=== PATIENT | male | born 1965 | race American Indian/Alaskan Native ===

== ENCOUNTER 2021-07-17 10:48 | Emergency (ER) | payer MEDICAID ==
--- NOTE | 2021-07-17 11:38 | Emergency Department Report ---
ED Extremity Problem HPI - General Chief complaint: Extremity Problem,Nontraumatic Stated complaint: RT KNEE PAIN Time Seen by Provider: 07/17/21 11:04 Source: patient Mode of arrival: Wheelchair Limitations: No Limitations - History of Present Illness Initial comments: 56 male with a past medical history of CVA, borderline diabetes and gout presents to the ER today with complaints of right knee pain. Patient states that he feels like he has a flareup of his gout in his right knee. He has had similar symptoms in the past in the same knee. Reports associated swelling but no erythema. He reports increased pain with movement of the knee and with ambulation. He does take allopurinol daily and he admits that he has been compliant with it. He denies any particular injury to the knee. He denies any additional symptoms at this time. MD Complaint: joint swelling, joint paint -: week(s) (1) Severity scale (0 -10): 10 - Related Data Home Medications Medication Instructions Recorded Confirmed Last Taken Atorvastatin 20 mg PO DAILY 05/10/20 05/10/20 Unknown Levocetirizine Dihydrochloride 5 mg PO QHS 05/10/20 05/10/20 Unknown Losartan [Cozaar] 50 mg PO DAILY 05/10/20 05/10/20 Unknown Mepron 750 mg PO DAILY 05/10/20 05/10/20 Unknown ProAir HFA Inhaler 90 mcg INHALATION PRN PRN 05/10/20 05/10/20 Unknown Triumeq 600-50-300 mg Tablet 600 mg PO DAILY 05/10/20 05/10/20 Unknown Vitamin D3 50,000 unit PO 12XD 05/10/20 05/10/20 Unknown Previous Rx's Medication Instructions Recorded Last Taken Type Abacavir [Ziagen TAB] 600 mg PO QDAY tablet 05/13/20 Unknown Rx Acetaminophen [Acetaminophen TAB] 650 mg PO Q4H PRN tablet 05/13/20 Unknown Rx Antacid [Alum-Mag Hydrox-Simeth 30 ml PO Q4H PRN #320 oral.liqd 05/13/20 Unknown Rx [id number]/5Ml] AtorvaSTATin [Lipitor] 20 mg PO QHS #30 tablet 05/13/20 Unknown Rx Dolutegravir [Tivicay] 50 mg PO QDAY tablet 05/13/20 Unknown Rx Tamsulosin [Flomax] 0.4 mg PO QDAY #30 capsule 05/13/20 Unknown Rx Zofran 4 mg PO Q8H PRN #15 05/13/20 Unknown Rx amLODIPine 10 mg PO DAILY #30 tablet 05/13/20 Unknown Rx levoFLOXacin [Levaquin] 750 mg PO QDAY 2 Days #2 tablet 05/13/20 Unknown Rx metroNIDAZOLE [Flagyl] 500 mg PO Q8HR 2 Days #6 tablet 05/13/20 Unknown Rx Naproxen 500 mg PO BID #20 tablet 07/17/21 Unknown Rx Tramadol HCl/Acetaminophen 1 each PO Q4HR #12 tablet 07/17/21 Unknown Rx [Ultracet Tablet] Allergies Allergy/AdvReac Type Severity Reaction Status Date / Time Penicillins Allergy Hives Verified 07/17/21 10:52 ED Review of Systems ROS: Stated complaint: RT KNEE PAIN Other details as noted in HPI Comment: All other systems reviewed and negative Constitutional: denies: chills, fever Eyes: denies: eye pain, eye discharge, vision change ENT: denies: ear pain, throat pain Respiratory: denies: cough, shortness of breath, SOB with exertion, SOB at rest, wheezing Gastrointestinal: denies: abdominal pain, nausea, diarrhea, constipation, hematemesis, hematochezia Genitourinary: denies: urgency, dysuria ED Past Medical Hx - Past Medical History Hx CVA: Yes (2003, RUE deficit, LLE deficit) Hx Congestive Heart Failure: No Hx Renal Disease: No Hx Seizures: Yes Hx Asthma: No Hx HIV: Yes Additional medical history: "in tx for HIV, I'm undetectable" - Surgical History Additional Surgical History: R foot sx 02/2020 - Social History Smoking Status: Former Smoker - Medications Home Medications: Home Medications Medication Instructions Recorded Confirmed Last Taken Type Atorvastatin 20 mg PO DAILY 05/10/20 05/10/20 Unknown History Levocetirizine Dihydrochloride 5 mg PO QHS 05/10/20 05/10/20 Unknown History Losartan [Cozaar] 50 mg PO DAILY 05/10/20 05/10/20 Unknown History Mepron 750 mg PO DAILY 05/10/20 05/10/20 Unknown History ProAir HFA Inhaler 90 mcg INHALATION PRN PRN 05/10/20 05/10/20 Unknown History Triumeq 600-50-300 mg Tablet 600 mg PO DAILY 05/10/20 05/10/20 Unknown History Vitamin D3 50,000 unit PO 12XD 05/10/20 05/10/20 Unknown History Abacavir [Ziagen TAB] 600 mg PO QDAY tablet 05/13/20 Unknown Rx Acetaminophen [Acetaminophen TAB] 650 mg PO Q4H PRN tablet 05/13/20 Unknown Rx Antacid [Alum-Mag Hydrox-Simeth 30 ml PO Q4H PRN #320 oral.liqd 05/13/20 Unknown Rx [id number]/5Ml] AtorvaSTATin [Lipitor] 20 mg PO QHS #30 tablet 05/13/20 Unknown Rx Dolutegravir [Tivicay] 50 mg PO QDAY tablet 05/13/20 Unknown Rx Tamsulosin [Flomax] 0.4 mg PO QDAY #30 capsule 05/13/20 Unknown Rx Zofran 4 mg PO Q8H PRN #15 05/13/20 05/10/20 Unknown Rx amLODIPine 10 mg PO DAILY #30 tablet 05/13/20 Unknown Rx levoFLOXacin [Levaquin] 750 mg PO QDAY 2 Days #2 tablet 05/13/20 Unknown Rx metroNIDAZOLE [Flagyl] 500 mg PO Q8HR 2 Days #6 tablet 05/13/20 Unknown Rx Naproxen 500 mg PO BID #20 tablet 07/17/21 Unknown Rx Tramadol HCl/Acetaminophen 1 each PO Q4HR #12 tablet 07/17/21 Unknown Rx [Ultracet Tablet] ED Physical Exam - General Limitations: No Limitations General appearance: alert, in no apparent distress - Head Head exam: Present: atraumatic, normocephalic, normal inspection - Eye Eye exam: Present: normal appearance, PERRL, EOMI Pupils: Present: normal accommodation - Neck Neck exam: Present: normal inspection, full ROM. Absent: tenderness - Respiratory Respiratory exam: Present: normal lung sounds bilaterally. Absent: respiratory distress, wheezes, rales, rhonchi - Cardiovascular Cardiovascular Exam: Present: regular rate, normal rhythm, normal heart sounds - Expanded Lower Extremity Exam Right Knee exam: Present: tenderness (mild ttp anterior lat aspect of right knee. No swelling, ecchymosis, erythema or deformity noted. Pain with flexion extension of the knee, but otherwise range of motion is normal.) - Neurological Exam Neurological exam: Present: alert, oriented X3, CN II-XII intact, normal gait - Psychiatric Psychiatric exam: Present: normal affect, normal mood - Skin Skin exam: Present: intact ED Course Vital Signs 07/17/21 07/17/21 10:49 11:52 Temperature 98.8 F 98.1 F Pulse Rate 110 H 73 Respiratory 16 12 Rate Blood Pressure 120/83 122/73 [Left] O2 Sat by Pulse 100 99 Oximetry ED Medical Decision Making - Medical Decision Making 56 male with a past medical history of CVA, borderline diabetes and gout presents to the ER today with complaints of right knee pain. Patient states that he feels like he has a flareup of his gout in his right knee. He has had similar symptoms in the past in the same knee. Reports associated swelling but no erythema. He reports increased pain with movement of the knee and with ambulation. He does take allopurinol daily and he admits that he has been compliant with it. He denies any particular injury to the knee. He denies any additional symptoms at this time. Patient right knee exam shows no apparent swelling, erythema, no warmth, no apparent joint effusion, and he has full range of motion of his knee. Patient knee exam does not suggest septic joint nor acute arterial occlusion or DVT. Suspect pain could be related to arthritis/gouty arthritis. Given patient has a history of "borderline diabetes", I will not initiate any steroids today. Instead patient will be started on anti-inflammatories and given medication for pain. He has appointment with his PCP next Wednesday which I recommend that he keeps. Patient stable at time of discharge. Critical care attestation.: If time is entered above; I have spent that time in minutes in the direct care of this critically ill patient, excluding procedure time. ED Disposition Clinical Impression: Right knee pain, History of gout Disposition: HOME / SELF CARE / HOMELESS Is pt being admited?: No Does the pt Need Aspirin: No Condition: Stable Instructions: Acute Knee Pain, Adult Additional Instructions: Recommend that you take the Ultram, and the naproxen as prescribed. Recommend that you continue taking your allopurinol. Keep your appointment with your primary care doctor on Wednesday. Return to the ER if your symptoms changes or worsens in any way. Prescriptions: Naproxen 500 mg PO BID #20 tablet Tramadol HCl/Acetaminophen [Ultracet Tablet] 1 each PO Q4HR #12 tablet Referrals: PRIMARY CARE, [Referring] - 3-5 Days Time of Disposition: 12:03
[2021-07-17 11:55] VITALS: BP 122/73
== END 2021-07-17 14:10 | disposition home or self-care (01) ==
LOC: ED 10:48
DX: M25.561 Pain in right knee (principal); M10.9 Gout, unspecified; Z88.0 Allergy status to penicillin; Z87.891 Personal history of nicotine dependence; Z86.73 Personal history of transient ischemic attack (TIA), and cerebral infarction without residual deficits
CPT/HCPCS: 99283

== ENCOUNTER 2021-10-14 17:37 | Inpatient (IN) | payer MEDICAID ==
[2021-10-14] MEDS ORDERED: SODIUM CHLORIDE 0.9% 1000 ML 1,000 ML IV ONE ×3 (18:04→19:02)
[2021-10-14] MEDS ORDERED: DEXTROSE 50% IN WATER (25GM) 50 ML SYRINGE IV PRN (18:04)
--- NOTE | 2021-10-14 18:17 | Emergency Department Report ---
<MATI ARIAS - Last Filed: 10/14/21 22:06> ED Altered Mental Status HPI - General Chief Complaint: Hyperglycemia Stated Complaint: ALTERED MENTAL STATUS Time Seen by Provider: 10/14/21 18:04 - Related Data Home Medications Medication Instructions Recorded Confirmed Last Taken Triumeq 600-50-300 mg Tablet 600 mg PO DAILY 05/10/20 10/16/21 Unknown Albuterol Mdi (or & Nicu Only) 2 puff IH QID PRN 10/17/21 10/17/21 Unknown [ProAir HFA Inhaler] AtorvaSTATin [Lipitor] 20 mg PO QHS 10/17/21 10/17/21 Unknown Cholecalciferol (Vitamin D3) 50,000 unit PO CONT 10/17/21 10/17/21 Unknown [Vitamin D3 50,000UNIT CAP] HYDROcodone/APAP 10-325 [[place] 1 tab PO Q6HR PRN 10/17/21 10/17/21 Unknown 10/325] Losartan [Cozaar] 50 mg PO QDAY 10/17/21 10/17/21 Unknown Previous Rx's Medication Instructions Recorded Last Taken Type amLODIPine 10 mg PO DAILY #30 tablet 05/13/20 Unknown Rx Allergies Allergy/AdvReac Type Severity Reaction Status Date / Time Penicillins Allergy Hives Verified 10/17/21 08:28 ED Past Medical Hx - Medications Home Medications: Home Medications Medication Instructions Recorded Confirmed Last Taken Type Triumeq 600-50-300 mg Tablet 600 mg PO DAILY 05/10/20 10/16/21 Unknown History amLODIPine 10 mg PO DAILY #30 tablet 05/13/20 10/16/21 Unknown Rx Albuterol Mdi (or & Nicu Only) 2 puff IH QID PRN 10/17/21 10/17/21 Unknown History [ProAir HFA Inhaler] AtorvaSTATin [Lipitor] 20 mg PO QHS 10/17/21 10/17/21 Unknown History Cholecalciferol (Vitamin D3) 50,000 unit PO CONT 10/17/21 10/17/21 Unknown H istory [Vitamin D3 50,000UNIT CAP] HYDROcodone/APAP 10-325 [[place] 1 tab PO Q6HR PRN 10/17/21 10/17/21 Unknown History 10/325] Losartan [Cozaar] 50 mg PO QDAY 10/17/21 10/17/21 Unknown History ED Course - Reevaluation(s) Reevaluation #1: 10/14/21 22:06 I spoke with hospitalist Dr. Hoyt to arrange admission. I consulted [employer] environmental health nurse. - Lab Data Result diagrams: 10/14/21 18:28 10/14/21 18:09 ED Disposition Clinical Impression: DKA (diabetic ketoacidosis), Hyperkalemia, HIV (human immunodeficiency virus infection), Hemiparesis affecting right side as late effect of cerebrovascular accident, Acute renal insufficiency, Pneumonia Disposition: 09 ADMITTED INPATIENT Is pt being admited?: Yes Does the pt Need Aspirin: No Condition: Critical <MIROSLAVA FONTANA - Last Filed: 10/18/21 08:04> ED Altered Mental Status HPI - General Source: EMS Mode of arrival: Stretcher Limitations: No Limitations - History of Present Illness Initial Comments: 56-year-old male with HIV, 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 Glucose is high. Patient history unclear when he states that he was diagnosed with diabetes 2 months ago but not placed on medications. He was sent for diminished mental status and slurred speech but as per previous medical history patient has speech deficit status post CVA in the past. Patient complains of shortness of breath and right pinky toe pain after injuring the toe at home within the last several weeks. Pain is worse with movement and palpation. Patient denies abdominal pain, chest pain, nausea, or vomiting ED Review of Systems ROS: Stated complaint: ALTERED MENTAL STATUS Other details as noted in HPI Comment: All other systems reviewed and negative ED Past Medical Hx - Past Medical History Hx CVA: Yes (2003, RUE deficit, LLE deficit) Hx Congestive Heart Failure: No Hx Renal Disease: No Hx Seizures: Yes Hx Asthma: No Hx HIV: Yes Additional medical history: "in tx for HIV, I'm undetectable" - Surgical History Additional Surgical History: R foot sx 02/2020 - Social History Smoking Status: Former Smoker ED Physical Exam - General Limitations: No Limitations - Other Other exam information: General: No acute distress Head: Atraumatic Eyes: normal appearance ENT: Moist mucous membranes Neck: Normal appearance, no midline tenderness Chest: Clear to auscultation bilaterally CV: Regular rate and rhythm Abdomen: Soft, normal bowel sounds, nontender, nondistended, no rebound or guarding Back: Normal inspection Extremity: Right pinky toe pain with movement. No deformity. No erythema or Neuro: Alert O x 3, slurred speech, right-sided weakness with contracture, right leg weakness, Psych: Appropriate behavior Skin: No rash ED Course Vital Signs 10/14/21 10/14/21 10/14/21 17:42 17:53 18:00 Temperature 98.1 F Pulse Rate 81 89 86 Pulse Rate [ Bilateral] Respiratory 16 30 H Rate Respiratory Rate [Bilateral ] Blood Pressure 65/24 Blood Pressure 145/77 [Right] O2 Sat by Pulse 100 99 Oximetry 10/14/21 10/14/21 10/14/21 18:14 18:15 18:30 Temperature Pulse Rate 82 79 Pulse Rate [ Bilateral] Respiratory 17 17 18 Rate Respiratory Rate [Bilateral ] Blood Pressure 107/83 149/81 Blood Pressure [Right] O2 Sat by Pulse 99 99 99 Oximetry 10/14/21 10/14/21 10/14/21 18:46 19:00 19:16 Temperature Pulse Rate 82 81 94 H Pulse Rate [ Bilateral] Respiratory 17 27 H 22 Rate Respiratory Rate [Bilateral ] Blood Pressure 165/82 135/81 140/38 Blood Pressure [Right] O2 Sat by Pulse 99 100 98 Oximetry 10/14/21 10/14/21 10/14/21 19:30 19:35 19:46 Temperature 94.1 F L Pulse Rate 90 93 H 96 H Pulse Rate [ Bilateral] Respiratory 27 H 17 17 Rate Respiratory Rate [Bilateral ] Blood Pressure 142/76 134/76 Blood Pressure 142/76 [Right] O2 Sat by Pulse 99 99 99 Oximetry 10/14/21 10/14/21 10/14/21 20:00 20:11 20:16 Temperature Pulse Rate 97 H 94 H Pulse Rate [ 97 H Bilateral] Respiratory 27 H 10 L Rate Respiratory 15 Rate [Bilateral ] Blood Pressure 143/79 150/78 Blood Pressure [Right] O2 Sat by Pulse 98 100 Oximetry 10/14/21 10/14/21 10/14/21 20:30 20:46 21:00 Temperature Pulse Rate 90 103 H 115 H Pulse Rate [ Bilateral] Respiratory 25 H 15 19 Rate Respiratory Rate [Bilateral ] Blood Pressure 154/77 157/79 146/83 Blood Pressure [Right] O2 Sat by Pulse 100 100 100 Oximetry 10/14/21 10/14/21 10/14/21 21:15 21:30 22:12 Temperature Pulse Rate 106 H 107 H 103 H Pulse Rate [ Bilateral] Respiratory 10 L 11 L 12 Rate Respiratory Rate [Bilateral ] Blood Pressure 143/71 132/102 Blood Pressure [Right] O2 Sat by Pulse 99 88 99 Oximetry 10/14/21 10/14/21 10/14/21 22:16 22:30 22:46 Temperature Pulse Rate 107 H 100 H 99 H Pulse Rate [ Bilateral] Respiratory 19 25 H 26 H Rate Respiratory Rate [Bilateral ] Blood Pressure Blood Pressure [Right] O2 Sat by Pulse 98 98 97 Oximetry 10/14/21 10/14/21 10/14/21 23:00 23:16 23:24 Temperature 97.4 F L Pulse Rate 109 H 102 H 101 H Pulse Rate [ Bilateral] Respiratory 17 27 H 28 H Rate Respiratory Rate [Bilateral ] Blood Pressure Blood Pressure [Right] O2 Sat by Pulse 100 98 99 Oximetry 10/14/21 10/14/21 10/15/21 23:30 23:46 00:00 Temperature Pulse Rate Pulse Rate [ Bilateral] Respiratory Rate Respiratory Rate [Bilateral ] Blood Pressure Blood Pressure [Right] O2 Sat by Pulse 99 97 99 Oximetry 10/15/21 10/15/21 10/15/21 00:16 00:30 00:46 Temperature Pulse Rate Pulse Rate [ Bilateral] Respiratory Rate Respiratory Rate [Bilateral ] Blood Pressure Blood Pressure [Right] O2 Sat by Pulse 98 98 97 Oximetry 10/15/21 10/15/21 10/15/21 01:00 01:16 01:30 Temperature Pulse Rate 105 H Pulse Rate [ Bilateral] Respiratory Rate Respiratory Rate [Bilateral ] Blood Pressure 134/82 117/74 126/82 Blood Pressure [Right] O2 Sat by Pulse 100 98 98 Oximetry 10/15/21 10/15/21 10/15/21 01:46 02:00 02:16 Temperature Pulse Rate 96 H 95 H 94 H Pulse Rate [ Bilateral] Respiratory 21 19 20 Rate Respiratory Rate [Bilateral ] Blood Pressure 125/75 155/87 108/69 Blood Pressure [Right] O2 Sat by Pulse 97 97 98 Oximetry - Consultations Consultation #1: 10/14/21 20:02 critical care consult ordered - Lab Data Result diagrams: 10/17/21 05:07 10/18/21 04:26 Lab Results 10/14/21 10/14/21 10/14/21 Range/Units 17:59 18:09 18:09 WBC (4.5-11.0) K/mm3 RBC (3.65-5.03) M/mm3 Hgb (11.8-15.2) gm/dl Hct (35.5-45.6) % MCV (84-94) fl MCH (28-32) pg MCHC (32-34) % RDW (13.2-15.2) % Plt Count (140-440) K/mm3 Add Manual Diff Total Counted Seg Neutrophils % Seg Neuts % (Manual) (40.0-70.0) % Band Neutrophils % % Lymphocytes % (Manual) (13.4-35.0) % Reactive Lymphs % (Man) % Monocytes % (Manual) (0.0-7.3) % Eosinophils % (Manual) (0.0-4.3) % Basophils % (Manual) (0.0-1.8) % Metamyelocytes % % Myelocytes % % Promyelocytes % % Blast Cells % % Nucleated RBC % Seg Neutrophils # Man (1.8-7.7) K/mm3 Band Neutrophils # K/mm3 Lymphocytes # (Manual) (1.2-5.4) K/mm3 Abs React Lymphs (Man) K/mm3 Monocytes # (Manual) (0.0-0.8) K/mm3 Eosinophils # (Manual) (0.0-0.4) K/mm3 Basophils # (Manual) (0.0-0.1) K/mm3 Metamyelocytes # K/mm3 Myelocytes # K/mm3 Promyelocytes # K/mm3 Blast Cells # K/mm3 WBC Morphology Hypersegmented Neuts Hyposegmented Neuts Hypogranular Neuts Smudge Cells Toxic Granulation Toxic Vacuolation Dohle Bodies Pelger-Huet Anomaly Joie Rods Platelet Estimate Clumped Platelets Plt Clumps, EDTA Large Platelets Giant Platelets Platelet Satelliting Plt Morphology Comment RBC Morphology Dimorphic RBCs Polychromasia Hypochromasia Poikilocytosis Anisocytosis Microcytosis Macrocytosis Spherocytes Pappenheimer Bodies Sickle Cells Target Cells Tear Drop Cells Ovalocytes Helmet Cells [place] Bodies Howard Rings Kourtney Cells Bite Cells Crenated Cell Elliptocytes Acanthocytes (Spur) Rouleaux Hemoglobin C Crystals Schistocytes Malaria parasites Raphael Bodies Hem Pathologist Commnt VBG pH (7.320-7.420) Sodium 118 L* (137-145) mmol/L Potassium 8.8 H* (3.6-5.0) mmol/L Chloride 77.6 L (98-107) mmol/L Carbon Dioxide 11 L (22-30) mmol/L Anion Gap 38 mmol/L BUN 77 H (9-20) mg/dL Creatinine 5.0 H (0.8-1.3) mg/dL Estimated GFR 15 ml/min BUN/Creatinine Ratio 15 % Glucose 1555 H* (75-100) mg/dL POC Glucose > 600 H (70-105) mg/dL Calcium 10.0 (8.4-10.2) mg/dL Phosphorus 11.60 H (2.5-4.5) mg/dL Magnesium 3.60 H (1.7-2.3) mg/dL Total Bilirubin 0.20 (0.1-1.2) mg/dL Direct Bilirubin < 0.2 (0-0.2) mg/dL Indirect Bilirubin 0.0 mg/dL AST 7 (5-40) units/L ALT 13 (7-56) units/L Alkaline Phosphatase 143 H (35-129) units/L Total Protein 7.5 (6.3-8.2) g/dL Albumin 4.8 (3.9-5) g/dL Albumin/Globulin Ratio 1.8 % 10/14/21 10/14/21 10/14/21 Range/Units 18:28 18:28 19:21 WBC 11.3 H (4.5-11.0) K/mm3 RBC 4.04 (3.65-5.03) M/mm3 Hgb 12.2 (11.8-15.2) gm/dl Hct 43.2 (35.5-45.6) % MCV 107 H (84-94) fl MCH 30 (28-32) pg MCHC 28 L (32-34) % RDW 15.1 (13.2-15.2) % Plt Count 329 (140-440) K/mm3 Add Manual Diff Complete Total Counted 100 Seg Neutrophils % Social Work Assistant Seg Neuts % (Manual) 94.0 H (40.0-70.0) % Band Neutrophils % 0 % Lymphocytes % (Manual) 1.0 L (13.4-35.0) % Reactive Lymphs % (Man) 0 % Monocytes % (Manual) 5.0 (0.0-7.3) % Eosinophils % (Manual) 0 (0.0-4.3) % Basophils % (Manual) 0 (0.0-1.8) % Metamyelocytes % 0 % Myelocytes % 0 % Promyelocytes % 0 % Blast Cells % 0 % Nucleated RBC % Not Reportable Seg Neutrophils # Man 10.6 H (1.8-7.7) K/mm3 Band Neutrophils # 0.0 K/mm3 Lymphocytes # (Manual) 0.1 L (1.2-5.4) K/mm3 Abs React Lymphs (Man) 0.0 K/mm3 Monocytes # (Manual) 0.6 (0.0-0.8) K/mm3 Eosinophils # (Manual) 0.0 (0.0-0.4) K/mm3 Basophils # (Manual) 0.0 (0.0-0.1) K/mm3 Metamyelocytes # 0.0 K/mm3 Myelocytes # 0.0 K/mm3 Promyelocytes # 0.0 K/mm3 Blast Cells # 0.0 K/mm3 WBC Morphology Not Reportable Hypersegmented Neuts Not Reportable Hyposegmented Neuts Not Reportable Hypogranular Neuts Not Reportable Smudge Cells Not Reportable Toxic Granulation Not Reportable Toxic Vacuolation Few Dohle Bodies Not Reportable Pelger-Huet Anomaly Not Reportable Joie Rods Not Reportable Platelet Estimate Consistent w auto Clumped Platelets 2+ Plt Clumps, EDTA Not Reportable Large Platelets Not Reportable Giant Platelets Not Reportable Platelet Satelliting Not Reportable Plt Morphology Comment Not Reportable RBC Morphology Not Reportable Dimorphic RBCs Not Reportable Polychromasia Not Reportable Hypochromasia Not Reportable Poikilocytosis Not Reportable Anisocytosis Not Reportable Microcytosis Not Reportable Macrocytosis Not Reportable Spherocytes Not Reportable Pappenheimer Bodies Not Reportable Sickle Cells Not Reportable Target Cells Not Reportable Tear Drop Cells Not Reportable Ovalocytes Not Reportable Helmet Cells Not Reportable [place]de-[place] Bodies Not Reportable Howard Rings Not Reportable Kourtney Cells Not Reportable Bite Cells Not Reportable Crenated Cell Not Reportable Elliptocytes Not Reportable Acanthocytes (Spur) Not Reportable Rouleaux Not Reportable Hemoglobin C Crystals Not Reportable Schistocytes Not Reportable Malaria parasites Not Reportable Raphael Bodies Not Reportable Hem Pathologist Commnt No VBG pH 7.129 L* (7.320-7.420) Sodium (137-145) mmol/L Potassium (3.6-5.0) mmol/L Chloride (98-107) mmol/L Carbon Dioxide (22-30) mmol/L Anion Gap mmol/L BUN (9-20) mg/dL Creatinine (0.8-1.3) mg/dL Estimated GFR ml/min BUN/Creatinine Ratio % Glucose (75-100) mg/dL POC Glucose > 600 H (70-105) mg/dL Calcium (8.4-10.2) mg/dL Phosphorus (2.5-4.5) mg/dL Magnesium (1.7-2.3) mg/dL Total Bilirubin (0.1-1.2) mg/dL Direct Bilirubin (0-0.2) mg/dL Indirect Bilirubin mg/dL AST (5-40) units/L ALT (7-56) units/L Alkaline Phosphatase (35-129) units/L Total Protein (6.3-8.2) g/dL Albumin (3.9-5) g/dL Albumin/Globulin Ratio % 10/14/21 10/14/21 10/14/21 Range/Units 20:44 21:13 22:36 WBC (4.5-11.0) K/mm3 RBC (3.65-5.03) M/mm3 Hgb (11.8-15.2) gm/dl Hct (35.5-45.6) % MCV (84-94) fl MCH (28-32) pg MCHC (32-34) % RDW (13.2-15.2) % Plt Count (140-440) K/mm3 Add Manual Diff Total Counted Seg Neutrophils % Seg Neuts % (Manual) (40.0-70.0) % Band Neutrophils % % Lymphocytes % (Manual) (13.4-35.0) % Reactive Lymphs % (Man) % Monocytes % (Manual) (0.0-7.3) % Eosinophils % (Manual) (0.0-4.3) % Basophils % (Manual) (0.0-1.8) % Metamyelocytes % % Myelocytes % % Promyelocytes % % Blast Cells % % Nucleated RBC % Seg Neutrophils # Man (1.8-7.7) K/mm3 Band Neutrophils # K/mm3 Lymphocytes # (Manual) (1.2-5.4) K/mm3 Abs React Lymphs (Man) K/mm3 Monocytes # (Manual) (0.0-0.8) K/mm3 Eosinophils # (Manual) (0.0-0.4) K/mm3 Basophils # (Manual) (0.0-0.1) K/mm3 Metamyelocytes # K/mm3 Myelocytes # K/mm3 Promyelocytes # K/mm3 Blast Cells # K/mm3 WBC Morphology Hypersegmented Neuts Hyposegmented Neuts Hypogranular Neuts Smudge Cells Toxic Granulation Toxic Vacuolation Dohle Bodies Pelger-Huet Anomaly Joie Rods Platelet Estimate Clumped Platelets Plt Clumps, EDTA Large Platelets Giant Platelets Platelet Satelliting Plt Morphology Comment RBC Morphology Dimorphic RBCs Polychromasia Hypochromasia Poikilocytosis Anisocytosis Microcytosis Macrocytosis Spherocytes Pappenheimer Bodies Sickle Cells Target Cells Tear Drop Cells Ovalocytes Helmet Cells [place]verde-[place] Bodies Howard Rings Kourtney Cells Bite Cells Crenated Cell Elliptocytes Acanthocytes (Spur) Rouleaux Hemoglobin C Crystals Schistocytes Malaria parasites Raphael Bodies Hem Pathologist Commnt VBG pH (7.320-7.420) Sodium 141 D (137-145) mmol/L Potassium 4.5 D (3.6-5.0) mmol/L Chloride 100.9 (98-107) mmol/L Carbon Dioxide 17 L (22-30) mmol/L Anion Gap 28 mmol/L BUN 73 H (9-20) mg/dL Creatinine 4.6 H (0.8-1.3) mg/dL Estimated GFR 16 ml/min BUN/Creatinine Ratio 16 % Glucose 997 H* 890 H* (75-100) mg/dL POC Glucose > 600 H (70-105) mg/dL Calcium 9.3 (8.4-10.2) mg/dL Phosphorus (2.5-4.5) mg/dL Magnesium (1.7-2.3) mg/dL Total Bilirubin (0.1-1.2) mg/dL Direct Bilirubin (0-0.2) mg/dL Indirect Bilirubin mg/dL AST (5-40) units/L ALT (7-56) units/L Alkaline Phosphatase (35-129) units/L Total Protein (6.3-8.2) g/dL Albumin (3.9-5) g/dL Albumin/Globulin Ratio % - EKG Data -: EKG Interpreted by Mt EKG shows normal: sinus rhythm, intervals (QTC 443), QRS complexes (Mild QRS prolongation 105), ST-T waves (Peaked T waves) Rate: normal (79) - Radiology Data Radiology results: report reviewed Right foot x-ray no acute fine Chest x-ray: Left lung opacity atelectasis versus infiltrate CT HEAD WITHOUT CONTRAST INDICATION / CLINICAL INFORMATION: Altered Mental Status, Hx of CVA, hyperglycemia. TECHNIQUE: All CT scans at this location are performed using CT dose reduction for ALARA by means of automated exposure control. COMPARISON: None available. FINDINGS: HEMORRHAGE: No evidence of intracranial hemorrhage or extra-axial fluid collection. EXTRA-AXIAL SPACES: Ex vacuo dilatation of cortical sulci is observed along the lateral convexity of the left frontal and parietal lobe secondary to remote left MCA infarction. Sulci have an unremarkable appearance. VENTRICULAR SYSTEM: There is ex vacuo enlargement of the left lateral ventricle compared to the right secondary to remote left MCA infarction. CEREBRAL PARENCHYMA: A large area of encephalomalacia involves much of the left parietal and frontal lobe secondary to remote left MCA infarction. MIDLINE SHIFT OR HERNIATION: There is no mass effect. CEREBELLUM / BRAINSTEM: There is atrophy of the left cerebral peduncle. This is a manifestation of [place] degeneration. Brain stem has an otherwise unremarkable appearance. No cerebellar abnormalities are identified. MIDLINE STRUCTURES:No abnormalities of the pituitary gland or pineal region are identified. INTRACRANIAL VESSELS:No abnormalities are identified on this noncontrast head CT. ORBITS: visualized portions of the orbits have an unremarkable appearance. SOFT TISSUES of HEAD: There is a large lipoma in the scalp lateralizing to the right the midline centered near the coronal suture. Overall size of this lesion is about 2 cm in anterior posterior dimension by 4 cm in right left dimension by 0.7 cm in superior-inferior dimension. This scalp lesion is in close proximity to an osteoma of the frontal bone on the right. CALVARIUM: There is an osteoma arising from the outer table of frontal bone to the right of the midline near the junction of the coronal and sagittal sutures. PARANASAL SINUSES / MASTOID AIR CELLS: Visualized portions of the paranasal sinuses are free from inflammatory mucosal disease. Mastoid air cells are normally pneumatized. ADDITIONAL FINDINGS: None. IMPRESSION: 1. Remote left MCA infarction. 2. 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 3. No acute intracranial abnormalities are identified. - Medical Decision Making 56-year male presents to the hospital with hyperglycemia and DKA as per lab findings. Has associated severe hyperkalemia and renal insufficiency. Patient treated with multiple medication for hyperkalemia, normal saline, insulin bolus, and insulin drip. Patient has mild hypothermia that was treated with active warming. Chest x-ray revealed possible infiltrate and patient was empirically treated with Levaquin after blood cultures ordered. At time of disposition results do indicate need for CCU admission and critical care consult ordered. CT head pending however, mild encephalopathy likely secondary to DKA and patient has chronic neurologic deficits. Critical Care Time: Yes Critical care attestation.: If time is entered above; I have spent that time in minutes in the direct care of this critically ill patient, excluding procedure time. Critical Care Time: 35 Minutes of critical care time excluding procedures were used in the care of the patient. I obtained history from EMS at the bedside. I discussed treatment plan with the nursing team members. I reviewed electronic record. I spoke with family to obtain medical history. Patient required multiple interventions and reassessments. (Treatment for hyperglycemia, hyperkalemia, acidosis, hypothermia) pt will require ICU admission for dka ED Disposition Is pt being admited?: Yes Time of Disposition: 20:05
[2021-10-14 18:47] LABS: Mean Corpuscular HGB Conc 28 % (32-34); Mean Corpuscular Volume 107 fl (84-94); Platelet Count 329 K/mm3 (140-440); Red Blood Count 4.04 M/mm3 (3.65-5.03); Red Cell Distribution Width 15.1 % (13.2-15.2)
[2021-10-14] MEDS ORDERED: ALBUTEROL 2.5 MG/3 ML NEBU IH ONE (18:49)
[2021-10-14 18:50] LABS: Alanine Aminotransferase 13 units/L (7-56); Albumin 4.8 g/dL (3.9-5)
[2021-10-14] MEDS ORDERED: SODIUM BICARB 8.4% 50 MEQ/50 ML SYRINGE IV ONE (18:50)
[2021-10-14] MEDS ORDERED: INSULIN REGULAR, HUMAN 100 UNITS/1 ML IV ONE (18:50)
[2021-10-14 18:51] LABS: Bilirubin,Direct < 0.2 mg/dL (0-0.2)
[2021-10-14 18:51] LABS: Hematocrit 43.2 % (35.5-45.6); Hemoglobin 12.2 gm/dl (11.8-15.2)
[2021-10-14] MEDS ORDERED: CALC GLUCONATE 1GM/NS 100 ML 1 GM/100 ML BAG IV ONE (19:00)
--- NOTE | 2021-10-14 19:05 | XRay Report ---
XR foot 3+V RT INDICATION / CLINICAL INFORMATION: 5th toe pain after recent injury COMPARISON: None available. FINDINGS: BONES / JOINT(S): No acute fracture or subluxation. Lisfranc interval is maintained. No significant a rthritis. SOFT TISSUES: No significant abnormality. ADDITIONAL FINDINGS: None. IMPRESSION: No acute osseous findings of the right foot. Signer Name: Yonny Min MD Signed: 10/14/2021 7:01 PM Workstation Name: [id number]
--- NOTE | 2021-10-14 19:05 | XRay Report ---
XR chest 1V ap INDICATION / CLINICAL INFORMATION: sob. COMPARISON: None available. FINDINGS: SUPPORT DEVICES: None. HEART /PULMONARY VASCULATURE: No significant abnormality. LUNGS / PLEURA: There is mild elevation of the left hemidiaphragm. Mildly low lung volumes. There is mild patchy airspace opacity left lung base. Right lung is clear. No sizable pleural effusion. No pne umothorax. IMPRESSION: Mild airspace opacity and left lung base, may reflect atelectasis or pneumonia. Signer Name: Yonny Min MD Signed: 10/14/2021 7:00 PM Workstation Name: [id number]
[2021-10-14] MEDS: INSULIN REGULAR, HUMAN 100 UNITS in SODIUM CHLORIDE 0.9% 99 ML IV SCH (19:27)
[2021-10-14 22:18] LABS: Basophils % (Manual) 0 % (0.0-1.8); Eosinophils % (Manual) 0 % (0.0-4.3); Platelet Clumps 2+; Platelet Estimate Consistent w Auto; Total Cells Counted 100; Toxic Vacuolation Few
--- NOTE | 2021-10-14 22:34 | Cat Scan Report ---
CT HEAD WITHOUT CONTRAST INDICATION / CLINICAL INFORMATION: Altered Mental Status, Hx of CVA, hyperglycemia. TECHNIQUE: All CT scans at this location are performed using CT dose reduction for ALARA by means of automated e xposure control. COMPARISON: None available. FINDINGS: HEMORRHAGE: No evidence of intracranial hemorrhage or extra-axial fluid collection. EXTRA-AXIAL SPACES: Ex vacuo dilatation of cortical sulci is observed along the lateral convexity of the left frontal and parietal lobe secondary to remote left MCA infarction. Sulci have an unremarkabl e appearance. VENTRICULAR SYSTEM: There is ex vacuo enlargement of the left lateral ventricle compared to the right secondary to remote left MCA infarction. CEREBRAL PARENCHYMA: A large area of encephalomalacia involves much of the left parietal and frontal lobe secondary to remote left MCA infarction. MIDLINE SHIFT OR HERNIATION: There is no mass effect. CEREBELLUM / BRAINSTEM: There is atrophy of the left cerebral peduncle. This is a manifestation of [place]ian degeneration. Brain stem has an otherwise unremarkable appearance. No cerebellar abnormalitie s are identified. MIDLINE STRUCTURES:No abnormalities of the pituitary gland or pineal region are identified. INTRACRANIAL VESSELS:No abnormalities are identified on this noncontrast head CT. ORBITS: visualized portions of the orbits have an unremarkable appearance. SOFT TISSUES of HEAD: There is a large lipoma in the scalp lateralizing to the right the midline cent ered near the coronal suture. Overall size of this lesion is about 2 cm in anterior posterior dimensi on by 4 cm in right left dimension by 0.7 cm in superior-inferior dimension. This scalp lesion is in close proximity to an osteoma of the frontal bone on the right. CALVARIUM: There is an osteoma arising from the outer table of frontal bone to the right of the midli ne near the junction of the coronal and sagittal sutures. PARANASAL SINUSES / MASTOID AIR CELLS: Visualized portions of the paranasal sinuses are free from inf lammatory mucosal disease. Mastoid air cells are normally pneumatized. ADDITIONAL FINDINGS: None. IMPRESSION: 1. Remote left MCA infarction. 2. 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 3. No acute intracranial abnormalities are identified. Signer Name: Mert Yung MD Signed: 10/14/2021 10:29 PM Workstation Name: [id number]
[2021-10-14 23:10] LABS: Calcium 9.3 mg/dL (8.4-10.2)
[2021-10-15] MEDS ORDERED: SODIUM CHLORIDE 0.9% 1000 ML 1,000 ML IV SCH ×2 (00:15→04:00)
--- NOTE | 2021-10-15 00:16 | History and Physical Report ---
History of Present Illness Date of examination: 10/14/21 Date of admission: 10/14/2021 Chief complaint: Changes in mental status History of present illness: 56-year-old male with known history of CVA x3 with right hemiparesis, HIV, hyperlipidemia, hypertension, asthma and history of tobacco abuse presents to the emergency room today with hyperglycemia. Patient was brought to the emergency room for changes in mental status and difficulty with speech. Patient states he was diagnosed with diabetes mellitus about 2 months ago but was not started on any medication. He denies any fever or chills, no chest pain or shortness of breath, no nausea vomiting and no abdominal pain. Work-up in the emergency room today's exam reveals a sodium level of 118, potassium of 8.8 and glucose of 1555. Patient also had a BUN of 77 and creatinine of 5.0. 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 X-ray of the right foot showed no acute abnormality. Chest x-ray showed mild airspace opacity in the left lung base which may reflect atelectasis or pneumonia. Patient had albuterol, calcium gluconate, sodium bicarbonate, insulin and glucose in the emergency room for the hyperkalemia. Patient being admitted with DKA, acute renal failure, hyperkalemia and possible underlying pneumonia. Past History Past Medical History: HIV/AIDS, seizures, stroke (2003, RUE deficit, LLE deficit)) Past Surgical History: Other ( R foot sx 02/2020) Social history: smoking (Former smoker) Family history: no significant family history Medications and Allergies Allergies Allergy/AdvReac Type Severity Reaction Status Date / Time Penicillins Allergy Hives Verified 07/17/21 10:52 Home Medications Medication Instructions Recorded Confirmed Last Taken Type Atorvastatin 20 mg PO DAILY 05/10/20 05/10/20 Unknown History Levocetirizine Dihydrochloride 5 mg PO QHS 05/10/20 05/10/20 Unknown History Losartan [Cozaar] 50 mg PO DAILY 05/10/20 05/10/20 Unknown History Mepron 750 mg PO DAILY 05/10/20 05/10/20 Unknown History ProAir HFA Inhaler 90 mcg INHALATION PRN PRN 05/10/20 05/10/20 Unknown History Triumeq 600-50-300 mg Tablet 600 mg PO DAILY 05/10/20 05/10/20 Unknown History Vitamin D3 50,000 unit PO 12XD 05/10/20 05/10/20 Unknown History Abacavir [Ziagen TAB] 600 mg PO QDAY tablet 05/13/20 Unknown Rx Acetaminophen [Acetaminophen TAB] 650 mg PO Q4H PRN tablet 05/13/20 Unknown Rx Antacid [Alum-Mag Hydrox-Simeth 30 ml PO Q4H PRN #320 oral.liqd 05/13/20 Unknown Rx [id number]/5Ml] AtorvaSTATin [Lipitor] 20 mg PO QHS #30 tablet 05/13/20 Unknown Rx Dolutegravir [Tivicay] 50 mg PO QDAY tablet 05/13/20 Unknown Rx Tamsulosin [Flomax] 0.4 mg PO QDAY #30 capsule 05/13/20 Unknown Rx Zofran 4 mg PO Q8H PRN #15 05/13/20 05/10/20 Unknown Rx amLODIPine 10 mg PO DAILY #30 tablet 05/13/20 Unknown Rx levoFLOXacin [Levaquin] 750 mg PO QDAY 2 Days #2 tablet 05/13/20 Unknown Rx metroNIDAZOLE [Flagyl] 500 mg PO Q8HR 2 Days #6 tablet 05/13/20 Unknown Rx Naproxen 500 mg PO BID #20 tablet 07/17/21 Unknown Rx Tramadol HCl/Acetaminophen 1 each PO Q4HR #12 tablet 07/17/21 Unknown Rx [Ultracet Tablet] Active Meds: Active Medications Acetaminophen (Acetaminophen 325 Mg Tab) 650 mg PO Q6H PRN PRN Reason: Pain MILD(1-3)/Fever >100.5/DELANEY Dextrose (Dextrose 50% In Water (25gm) 50 Ml Syringe) 0 ml IV Q30MIN PRN; Protocol PRN Reason: Hypoglycemia Insulin Human Regular 100 (units/ Sodium Chloride) 100 mls @ 1 mls/hr IV TITR JOSE; Protocol Last Admin: 10/14/21 19:27 Dose: 8 units/hr, 8 mls/hr Sodium Chloride (Nacl 0.9% 1000 Ml) 1,000 mls @ 150 mls/hr IV DIRECT JOSE Potassium Chloride/Dextrose/Sod Cl (D5w/0.45% Nacl/Kcl 20 Meq) 20 meq in 1,000 mls @ 125 mls/hr IV DIRECT JOSE Morphine Sulfate (Morphine 2 Mg/1 Ml Inj) 2 mg IV Q4H PRN PRN Reason: Pain, Moderate (4-6) Morphine Sulfate (Morphine 4 Mg/1 Ml Inj) 4 mg IV Q4H PRN PRN Reason: Pain , Severe (7-10) Sodium Chloride (Sodium Chloride 0.9% 10 Ml Flush Syringe) 10 ml IV BID JOSE Sodium Chloride (Sodium Chloride 0.9% 10 Ml Flush Syringe) 10 ml IV PRN PRN PRN Reason: LINE FLUSH Review of Systems Constitutional: no fever, no chills Ears, nose, mouth and throat: no nasal congestion, no sore throat Cardiovascular: no chest pain, no palpitations Respiratory: no cough, no shortness of breath Gastrointestinal: nausea, vomiting, no abdominal pain, no diarrhea Genitourinary Male: no dysuria, no hematuria, no flank pain Musculoskeletal: no neck pain, no low back pain Integumentary: no rash, no pruritis Neurological: confusion, no headaches Psychiatric: no anxiety, no depression Endocrine: no polyphagia, no polydipsia, no polyuria, no nocturia Exam - Constitutional Vitals: Temp Pulse Resp BP Pulse Ox 97.4 F L 102 H 27 H 132/102 98 10/14/21 23:00 10/14/21 23:16 10/14/21 23:16 10/14/21 21:30 10/14/21 23:16 General appearance: Present: no acute distress, well-nourished - EENT Eyes: Present: PERRL, EOM intact. Absent: scleral icterus ENT: hearing intact, clear oral mucosa, dentition normal - Neck Neck: Present: supple, normal ROM - Respiratory Respiratory effort: normal Respiratory: bilateral: CTA - Cardiovascular Rhythm: regular Heart Sounds: Present: S1 & S2. Absent: gallop, systolic murmur, diastolic murmur, rub - Extremities Extremities: no ischemia, pulses intact, pulses symmetrical, No edema, normal temperature, normal color, Full ROM Peripheral Pulses: within normal limits - Abdominal General gastrointestinal: Present: soft, non-tender, non-distended, normal bowel sounds. Absent: mass - Integumentary Integumentary: Present: clear, warm, dry, normal turgor. Absent: rash - Musculoskeletal Musculoskeletal: strength equal bilaterally - Psychiatric Psychiatric: appropriate mood/affect, intact judgment & insight, memory intact, cooperative - Neurologic Neurologic: CNII-XII intact, no focal deficits, moves all extremities Results - Labs CBC & Chem 7: 10/14/21 18:28 10/15/21 04:23 Labs: Abnormal lab results 10/14/21 10/14/21 10/14/21 Range/Units 17:59 18:09 18:09 WBC (4.5-11.0) K/mm3 MCV (84-94) fl MCHC (32-34) % Seg Neuts % (Manual) (40.0-70.0) % Lymphocytes % (Manual) (13.4-35.0) % Seg Neutrophils # Man (1.8-7.7) K/mm3 Lymphocytes # (Manual) (1.2-5.4) K/mm3 VBG pH (7.320-7.420) Sodium 118 L* (137-145) mmol/L Potassium 8.8 H* (3.6-5.0) mmol/L Chloride 77.6 L (98-107) mmol/L Carbon Dioxide 11 L (22-30) mmol/L BUN 77 H (9-20) mg/dL Creatinine 5.0 H (0.8-1.3) mg/dL Glucose 1555 H* (75-100) mg/dL POC Glucose > 600 H (70-105) mg/dL Phosphorus 11.60 H (2.5-4.5) mg/dL Magnesium 3.60 H (1.7-2.3) mg/dL Alkaline Phosphatase 143 H (35-129) units/L 10/14/21 10/14/21 10/14/21 Range/Units 18:28 18:28 19:21 WBC 11.3 H (4.5-11.0) K/mm3 MCV 107 H (84-94) fl MCHC 28 L (32-34) % Seg Neuts % (Manual) 94.0 H (40.0-70.0) % Lymphocytes % (Manual) 1.0 L (13.4-35.0) % Seg Neutrophils # Man 10.6 H (1.8-7.7) K/mm3 Lymphocytes # (Manual) 0.1 L (1.2-5.4) K/mm3 VBG pH 7.129 L* (7.320-7.420) Sodium (137-145) mmol/L Potassium (3.6-5.0) mmol/L Chloride (98-107) mmol/L Carbon Dioxide (22-30) mmol/L BUN (9-20) mg/dL Creatinine (0.8-1.3) mg/dL Glucose (75-100) mg/dL POC Glucose > 600 H (70-105) mg/dL Phosphorus (2.5-4.5) mg/dL Magnesium (1.7-2.3) mg/dL Alkaline Phosphatase (35-129) units/L 10/14/21 10/14/21 10/14/21 Range/Units 20:44 21:13 22:36 WBC (4.5-11.0) K/mm3 MCV (84-94) fl MCHC (32-34) % Seg Neuts % (Manual) (40.0-70.0) % Lymphocytes % (Manual) (13.4-35.0) % Seg Neutrophils # Man (1.8-7.7) K/mm3 Lymphocytes # (Manual) (1.2-5.4) K/mm3 VBG pH (7.320-7.420) Sodium (137-145) mmol/L Potassium (3.6-5.0) mmol/L Chloride (98-107) mmol/L Carbon Dioxide 17 L (22-30) mmol/L BUN 73 H (9-20) mg/dL Creatinine 4.6 H (0.8-1.3) mg/dL Glucose 997 H* 890 H* (75-100) mg/dL POC Glucose > 600 H (70-105) mg/dL Phosphorus (2.5-4.5) mg/dL Magnesium (1.7-2.3) mg/dL Alkaline Phosphatase (35-129) units/L Assessment and Plan - Patient Problems (1) DKA (diabetic ketoacidosis) Current Visit: Yes Status: Acute Plan to address problem: Patient admitted to the intensive care unit and placed on insulin drip and IV fluid. We'll monitor Accu-Cheks closely. (2) HIV (human immunodeficiency virus infection) Current Visit: Yes Status: Chronic Plan to address problem: We'll continue routine home medications. (3) Acute renal failure Current Visit: No Status: Acute Qualifiers: Acute renal failure type: unspecified Qualified Code(s): N17.9 - Acute kidney failure, unspecified Plan to address problem: Possibly secondary to severe dehydration, DKA we'll continue patient on IV fluid and monitor BUN and creatinine. Consult placed to nephrology for evaluation. (4) DVT prophylaxis Current Visit: No Status: Acute Plan to address problem: Patient placed on subcutaneous heparin. (5) Full code status Current Visit: No Status: Acute Plan to address problem: Patient is full code.
[2021-10-15] MEDS ORDERED: DEXTROSE 10% *Hypoglycemia IV PRN (00:23)
[2021-10-15] MEDS ORDERED: D5W/0.45% NACL/KCL 20 MEQ 20 MEQ/1,000 ML BAG IV SCH (01:00)
[2021-10-15 01:33] LABS: Calcium 9.5 mg/dL (8.4-10.2)
[2021-10-15] MEDS ORDERED: SODIUM CHLORIDE 0.9% 1000 ML 1,000 ML IV ONE (03:30)
[2021-10-15] MEDS: INSULIN REGULAR, HUMAN 100 UNITS in SODIUM CHLORIDE 0.9% 99 ML IV SCH (04:45)
[2021-10-15 06:00] LABS: Calcium 9.6 mg/dL (8.4-10.2)
[2021-10-15] MEDS ORDERED: LACTATED RINGERS 1,000 ML ONE (10:11)
--- NOTE | 2021-10-15 10:23 | Electrocardiograph Report ---
[facility] Test Date: 2021-10-14 Test Time: 18:41:22 Pat Name: PINO GARSIA Department: Room: A253 1 Gender: M Cad Technician: SHIRA : 1965 Requested By: MIROSLAVA FONTANA Order Number: [id number] Reading MD: Dave Herman Measurements Intervals [place] Rate: 79 P: 77 ID: [id number] QRS: 46 QRSD: 105 T: 28 QT: 385 QTc: 443 Interpretive Statements Sinus rhythm Low voltage, extremity leads No previous ECG available for comparison Electronically Signed On 10-15-2021 10:22:58 EST by Dave Herman
[2021-10-15] MEDS ORDERED: LACTATED RINGERS 1,000 ML IV ONE (10:30)
--- NOTE | 2021-10-15 10:58 | Event Note ---
<JOSIAH LANE - Last Filed: 10/15/21 14:26> Date: 10/15/21 This is a 56-year-old male with past medical history of CVA x3 with right hemiparesis, HIV, hyperlipidemia, hypertension, asthma, DM, and history of tobacco abuse admitted for hyperkalemia, DKA, and TOMAS Hospital Course to Date: 10/15: Patient medhat an examined at the bedside. Full AAO, on RA. Right hemiparesis and mild aphasia noted, per patient that is baseline, deficit from previous CVA. Patient remains on the DKA protocol, continue protocol until anion gap is closedX2. Period of hypotension overnight, BP is still boderline this am, additional IVF bolus given. Continue serial lab, possible transfer to the floor later on today if transition to subQ insulin. Assessement and Plan #DKA (diabetic ketoacidosis) - Continue DKA protocol - IV fluid resuscitation therapy, additional bolus given - Monitor and replace electrolytes as needed - Monitor anion gap - Serial BMP, mag, & phosp #Acute Renal Failure(ARF) most likely ATN #Hyperkalemia #Metabolic acidosis - Possibly secondary to severe dehydration, DKA - No EKG changes noted - Continue DKA protocol - IV fluid resuscitation therapy - Nephrology on consult, appreciated recommendation - Strict intake and output - Avoid nephrotoxic medications; Renally dose medications - Monitor and replace electrolytes as needed - Serial Labs #HIV (human immunodeficiency virus infection) - Continue routine home medications - Nursing to follow up with patient for update medications list #GI/DVT prophylaxis - PPI: pepcid - Continue AC- heparin SubQ - SCDs to bilateral lower extremities while in bed NonCCT- 60min <SANTOS REA - Last Filed: 10/16/21 07:29> I saw and evaluated the patient. I agree with the findings and the plan of care as documented in the Nurse Practitioner's~note, with the following corrections and additions.
--- NOTE | 2021-10-15 10:58 | Consultation ---
History of Present Illness Consult date: 10/15/21 Requesting physician: MIROSLAVA FONTANA Reason for consult: other (DKA) History of present illness: PULMONARY/CCM CONSULT NOTE (Full dictation # [id number]) Please see dictated notes for full details Past History Past Medical History: HIV/AIDS, seizures, stroke (2003, RUE deficit, LLE deficit)) Past Surgical History: Other ( R foot sx 02/2020) Social history: smoking (Former smoker) Family history: no significant family history Medications and Allergies Allergies Allergy/AdvReac Type Severity Reaction Status Date / Time Penicillins Allergy Hives Verified 07/17/21 10:52 Home Medications Medication Instructions Recorded Confirmed Last Taken Type Atorvastatin 20 mg PO DAILY 05/10/20 10/16/21 10/14/21 History ProAir HFA Inhaler 90 mcg INHALATION PRN PRN 05/10/20 10/16/21 Unknown History Triumeq 600-50-300 mg Tablet 600 mg PO DAILY 05/10/20 10/16/21 10/14/21 History Vitamin D3 50,000 unit PO 12XD 05/10/20 10/16/21 10/14/21 History amLODIPine 10 mg PO DAILY #30 tablet 05/13/20 10/16/21 10/14/21 Rx Active Meds: Active Medications Acetaminophen (Acetaminophen 325 Mg Tab) 650 mg PO Q6H PRN PRN Reason: Pain MILD(1-3)/Fever >100.5/DELANEY Dextrose (Dextrose 10% *Hypoglycemia) 0 ml IV PRN PRN; Protocol PRN Reason: Hypoglycemia Heparin Sodium (Porcine) (Heparin 5,000 Unit/1 Ml Vial) 5,000 unit SUB-Q Q8HR JOSE Insulin Human Regular 100 (units/ Sodium Chloride) 100 mls @ 1 mls/hr IV TITR JOSE; Protocol Last Titration: 10/15/21 10:15 Dose: 1 units/hr, 1 mls/hr Sodium Chloride (Nacl 0.9% 1000 Ml) 1,000 mls @ 150 mls/hr IV DIRECT JOSE Last Admin: 10/15/21 04:09 Dose: 150 mls/hr Potassium Chloride/Dextrose/Sod Cl (D5w/0.45% Nacl/Kcl 20 Meq) 20 meq in 1,000 mls @ 125 mls/hr IV DIRECT JOSE Last Admin: 10/15/21 10:16 Dose: 125 mls/hr Levofloxacin/Dextrose (Levaquin 500mg/100ml) 500 mg in 100 mls @ 66.667 mls/hr IV Q48H JOSE; Protocol Lactated Ringer's (Lactated Ringers) 1,000 mls @ 999 mls/hr IV BOLUS ONE Stop: 10/15/21 11:30 Last Admin: 10/15/21 10:33 Dose: 999 mls/hr Morphine Sulfate (Morphine 2 Mg/1 Ml Inj) 2 mg IV Q4H PRN PRN Reason: Pain, Moderate (4-6) Morphine Sulfate (Morphine 4 Mg/1 Ml Inj) 4 mg IV Q4H PRN PRN Reason: Pain , Severe (7-10) Sodium Chloride (Sodium Chloride 0.9% 10 Ml Flush Syringe) 10 ml IV BID JOSE Last Admin: 10/15/21 10:07 Dose: Not Given Sodium Chloride (Sodium Chloride 0.9% 10 Ml Flush Syringe) 10 ml IV PRN PRN PRN Reason: LINE FLUSH Physical Examination Vital signs: Vital Signs Temp Pulse Resp BP Pulse Ox 98.1 F 81 16 145/77 100 10/14/21 17:42 10/14/21 17:42 10/14/21 17:42 10/14/21 17:42 10/14/21 17:42 Results - Laboratory Findings CBC and BMP: 10/16/21 06:41 10/16/21 06:41 Abnormal lab findings: Abnormal Labs 10/14/21 10/14/21 10/14/21 17:59 18:09 18:09 WBC MCV MCHC Seg Neuts % (Manual) Lymphocytes % (Manual) Seg Neutrophils # Man Lymphocytes # (Manual) VBG pH Sodium 118 L* Potassium 8.8 H* Chloride 77.6 L Carbon Dioxide 11 L BUN 77 H Creatinine 5.0 H Glucose 1555 H* POC Glucose > 600 H Phosphorus 11.60 H Magnesium 3.60 H Alkaline Phosphatase 143 H 10/14/21 10/14/21 10/14/21 18:28 18:28 19:21 WBC 11.3 H MCV 107 H MCHC 28 L Seg Neuts % (Manual) 94.0 H Lymphocytes % (Manual) 1.0 L Seg Neutrophils # Man 10.6 H Lymphocytes # (Manual) 0.1 L VBG pH 7.129 L* Sodium Potassium Chloride Carbon Dioxide BUN Creatinine Glucose POC Glucose > 600 H Phosphorus Magnesium Alkaline Phosphatase 10/14/21 10/14/21 10/14/21 20:44 21:13 22:36 WBC MCV MCHC Seg Neuts % (Manual) Lymphocytes % (Manual) Seg Neutrophils # Man Lymphocytes # (Manual) VBG pH Sodium Potassium Chloride Carbon Dioxide 17 L BUN 73 H Creatinine 4.6 H Glucose 997 H* 890 H* POC Glucose > 600 H Phosphorus Magnesium Alkaline Phosphatase 10/15/21 10/15/21 10/15/21 00:22 00:50 00:50 WBC MCV MCHC Seg Neuts % (Manual) Lymphocytes % (Manual) Seg Neutrophils # Man Lymphocytes # (Manual) VBG pH Sodium Potassium Chloride Carbon Dioxide 19 L BUN 72 H Creatinine 4.1 H Glucose 727 H* POC Glucose > 600 H Phosphorus 6.60 H D Magnesium 3.40 H Alkaline Phosphatase 10/15/21 10/15/21 10/15/21 02:24 03:01 03:54 WBC MCV MCHC Seg Neuts % (Manual) Lymphocytes % (Manual) Seg Neutrophils # Man Lymphocytes # (Manual) VBG pH Sodium Potassium Chloride Carbon Dioxide BUN Creatinine Glucose POC Glucose 537 H 529 H 478 H Phosphorus Magnesium Alkaline Phosphatase 10/15/21 10/15/21 10/15/21 04:23 04:56 05:57 WBC MCV MCHC Seg Neuts % (Manual) Lymphocytes % (Manual) Seg Neutrophils # Man Lymphocytes # (Manual) VBG pH Sodium Potassium Chloride 111.0 H Carbon Dioxide 19 L BUN 64 H Creatinine 3.4 H Glucose 402 H POC Glucose 423 H 296 H Phosphorus Magnesium Alkaline Phosphatase 10/15/21 10/15/21 10/15/21 06:54 08:03 09:02 WBC MCV MCHC Seg Neuts % (Manual) Lymphocytes % (Manual) Seg Neutrophils # Man Lymphocytes # (Manual) VBG pH Sodium Potassium Chloride Carbon Dioxide BUN Creatinine Glucose POC Glucose 266 H 140 H 119 H Phosphorus Magnesium Alkaline Phosphatase
--- NOTE | 2021-10-15 12:09 | Consultation ---
History of Present Illness - Reason for Consult Consult date: 10/15/21 acute renal failure - History of Present Illness The patient is a 56 YO male with known history of Hypertension, HLD, boderline DM, CVA x3 with right hemiparesis & aphasia, HIV, Asthma, Tobacco abuse and CKD who presented to [facility] ED 10/14/21 with AMS and hyperglycemia. Patient was diagnosed with diabetes mellitus about 2 months ago but was not started on any medication. He denies any fever, chills, chest pain, shortness of breath, nausea, vomiting and abdominal pain. Work-up in the ED revealed a Sodium of 118, Potassium of 8.8, Glucose of 1555, BUN of 77 and creatinine of 5.0. 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 Chest x-ray showed mild airspace opacity in the left lung base which may reflect atelectasis or pneumonia. Patient received treatment for hyperglycemia. Admitted for DKA management. Nephrology was consulted for evaluation and treatment of TOMAS. Past History Past Medical History: diabetes, HIV/AIDS, hypertension, hyperlipidemia, renal failure, seizures, stroke (2003, RUE deficit, LLE deficit)) Past Surgical History: Other ( R foot sx 02/2020) Social history: smoking (Former smoker) Family history: no significant family history Medications and Allergies Allergies Allergy/AdvReac Type Severity Reaction Status Date / Time Penicillins Allergy Hives Verified 07/17/21 10:52 Home Medications Medication Instructions Recorded Confirmed Last Taken Type Atorvastatin 20 mg PO DAILY 05/10/20 05/10/20 Unknown History Levocetirizine Dihydrochloride 5 mg PO QHS 05/10/20 05/10/20 Unknown History Losartan [Cozaar] 50 mg PO DAILY 05/10/20 05/10/20 Unknown History Mepron 750 mg PO DAILY 05/10/20 05/10/20 Unknown History ProAir HFA Inhaler 90 mcg INHALATION PRN PRN 05/10/20 05/10/20 Unknown History Triumeq 600-50-300 mg Tablet 600 mg PO DAILY 05/10/20 05/10/20 Unknown History Vitamin D3 50,000 unit PO 12XD 05/10/20 05/10/20 Unknown History Abacavir [Ziagen TAB] 600 mg PO QDAY tablet 05/13/20 Unknown Rx Acetaminophen [Acetaminophen TAB] 650 mg PO Q4H PRN tablet 05/13/20 Unknown Rx Antacid [Alum-Mag Hydrox-Simeth 30 ml PO Q4H PRN #320 oral.liqd 05/13/20 Unknown Rx [id number]/5Ml] AtorvaSTATin [Lipitor] 20 mg PO QHS #30 tablet 05/13/20 Unknown Rx Dolutegravir [Tivicay] 50 mg PO QDAY tablet 05/13/20 Unknown Rx Tamsulosin [Flomax] 0.4 mg PO QDAY #30 capsule 05/13/20 Unknown Rx Zofran 4 mg PO Q8H PRN #15 05/13/20 05/10/20 Unknown Rx amLODIPine 10 mg PO DAILY #30 tablet 05/13/20 Unknown Rx levoFLOXacin [Levaquin] 750 mg PO QDAY 2 Days #2 tablet 05/13/20 Unknown Rx metroNIDAZOLE [Flagyl] 500 mg PO Q8HR 2 Days #6 tablet 05/13/20 Unknown Rx Naproxen 500 mg PO BID #20 tablet 07/17/21 Unknown Rx Tramadol HCl/Acetaminophen 1 each PO Q4HR #12 tablet 07/17/21 Unknown Rx [Ultracet Tablet] Active Meds: Active Medications Acetaminophen (Acetaminophen 325 Mg Tab) 650 mg PO Q6H PRN PRN Reason: Pain MILD(1-3)/Fever >100.5/DELANEY Dextrose (Dextrose 10% *Hypoglycemia) 0 ml IV PRN PRN; Protocol PRN Reason: Hypoglycemia Heparin Sodium (Porcine) (Heparin 5,000 Unit/1 Ml Vial) 5,000 unit SUB-Q Q8HR [facility] Insulin Human Regular 100 (units/ Sodium Chloride) 100 mls @ 1 mls/hr IV TITR JOSE; Protocol Last Titration: 10/15/21 11:33 Dose: 2 units/hr, 2 mls/hr Sodium Chloride (Nacl 0.9% 1000 Ml) 1,000 mls @ 150 mls/hr IV DIRECT JOSE Last Admin: 10/15/21 04:09 Dose: 150 mls/hr Potassium Chloride/Dextrose/Sod Cl (D5w/0.45% Nacl/Kcl 20 Meq) 20 meq in 1,000 mls @ 125 mls/hr IV DIRECT JOSE Last Admin: 10/15/21 10:16 Dose: 125 mls/hr Morphine Sulfate (Morphine 2 Mg/1 Ml Inj) 2 mg IV Q4H PRN PRN Reason: Pain, Moderate (4-6) Morphine Sulfate (Morphine 4 Mg/1 Ml Inj) 4 mg IV Q4H PRN PRN Reason: Pain , Severe (7-10) Sodium Chloride (Sodium Chloride 0.9% 10 Ml Flush Syringe) 10 ml IV BID JOSE Last Admin: 10/15/21 10:07 Dose: Not Given Sodium Chloride (Sodium Chloride 0.9% 10 Ml Flush Syringe) 10 ml IV PRN PRN PRN Reason: LINE FLUSH Review of Systems All systems: negative Exam - Vital Signs Vital signs: Vital Signs Temp Pulse Resp BP Pulse Ox 98.1 F 81 16 145/77 100 10/14/21 17:42 10/14/21 17:42 10/14/21 17:42 10/14/21 17:42 10/14/21 17:42 Results - Lab Results 10/14/21 18:28 10/15/21 17:52 Most recent lab results Calcium 9.6 mg/dL (8.4-10.2) 10/15/21 04:23 Phosphorus 6.60 mg/dL (2.5-4.5) H D 10/15/21 00:50 Magnesium 3.40 mg/dL (1.7-2.3) H 10/15/21 00:50 Assessment and Plan 1. Acute kidney injury: Vasomotor TOMAS superimposed on CKD in the setting of DKA / volume depletion. Urine studies and Renal US ordered. IV fluids. Monitor renal function. Creatinine level is improving. Avoid nephrotoxic agents. Meds dosage based on GFR. 2. FEN: Hyperkalemia, improved, monitor. Pseudohyponatremia, monitor. Monitor lytes and volume status. 3. DKA: Improving. Per protocol. Monitor. 4. Covid-19 PUI: Test pending. Monitor. 5. History of CVA with residual R hemiparesis: Supportive care. 6. HIV: Continue home meds. 7. H/o Hypertension: Monitor BP. Subjective: Patient was seen and examined at the bedside. RN at the bedside. Examination: General appearance: well-developed, appears stated age, no distress HEENT: atraumatic, GASPER Neck: trachea midline Respiratory: ctab Heart: S1S2, regular, no murmur Abdomen: obese, soft, bowel sounds heard, NT Integumentary: no obvious rash noted Neurologic: alert, conversing, R hemiparesis, aphasia Ext: no edema noted
[2021-10-15] MEDS: HEPARIN 5,000 UNIT/1 ML VIAL SUB-Q SCH ×2 (14:02→21:15)
[2021-10-15] MEDS: DOCUSATE SODIUM 100 MG CAP PO SCH ×2 (14:03→21:15)
[2021-10-15 15:54] LABS: Calcium 9.1 mg/dL (8.4-10.2)
[2021-10-15] MEDS ORDERED: SODIUM BICARB 8.4% 50 MEQ/50 ML SYRINGE IV NR (16:32)
[2021-10-15] MEDS: FLUTICASONE PROPIONATE NASAL SPRAY 16 GM NS SCH (17:57)
[2021-10-15] MEDS: DEXTROSE 5% IN WATER 1,000 ML IV SCH (17:57)
[2021-10-15 18:27] LABS: C-Reactive Protein 5.1 mg/dL (0.00-1.30); Calcium 9.2 mg/dL (8.4-10.2)
[2021-10-15] MEDS: MORPHINE 2 MG/1 ML INJ IV PRN (19:28)
[2021-10-15 19:41] LABS: Bacteria,Urine 1+ /HPF (Negative); Bilirubin,Urine NEG (Negative); Blood,Urine LG (Negative); Color,Urine Yellow (Yellow); Mucus,Urine FEW /HPF; Urobilinogen,Urine < 2.0 mg/dL (<2.0)
[2021-10-15] MEDS: FAMOTIDINE 10 MG TAB PO SCH (21:15)
[2021-10-15] MEDS: SENNOSIDES ORAL LIQD 8.8 MG/5 ML ORAL LIQD PO SCH (21:15)
[2021-10-15] MEDS: MORPHINE 4 MG/1 ML INJ IV PRN (23:26)
[2021-10-16 02:29] LABS: Calcium 8.4 mg/dL (8.4-10.2)
[2021-10-16] MEDS: DEXTROSE 5% IN WATER 1,000 ML IV SCH (04:00)
[2021-10-16] MEDS: HEPARIN 5,000 UNIT/1 ML VIAL SUB-Q SCH ×3 (05:10→21:33)
[2021-10-16] MEDS: MORPHINE 4 MG/1 ML INJ IV PRN ×2 (05:10→09:23)
[2021-10-16 07:06] LABS: Hematocrit 28.2 % (35.5-45.6); Hemoglobin 9.3 gm/dl (11.8-15.2); Mean Corpuscular HGB Conc 33 % (32-34); Mean Corpuscular Volume 95 fl (84-94); Platelet Count 169 K/mm3 (140-440); Red Blood Count 2.98 M/mm3 (3.65-5.03); Red Cell Distribution Width 14.6 % (13.2-15.2)
[2021-10-16 07:18] LABS: Calcium 8.5 mg/dL (8.4-10.2)
[2021-10-16] MEDS ORDERED: DEXTROSE 50% IN WATER (25GM) 50 ML SYRINGE IV PRN (07:36)
[2021-10-16] MEDS ORDERED: INSULIN GLARGINE 100 UNITS/ML SUB-Q ONE (08:30)
[2021-10-16] MEDS ORDERED: DEXTROSE 10% *Hypoglycemia IV PRN (08:30)
[2021-10-16] MEDS: FLUTICASONE PROPIONATE NASAL SPRAY 16 GM NS SCH (09:20)
[2021-10-16] MEDS: DOLUTEGRAVIR 50 MG TAB PO SCH (09:23)
[2021-10-16] MEDS: ABACAVIR 300 MG TAB PO SCH (09:23)
[2021-10-16] MEDS: DOCUSATE SODIUM 100 MG CAP PO SCH ×2 (09:24→21:33)
[2021-10-16] MEDS: FAMOTIDINE 10 MG TAB PO SCH ×2 (09:24→21:32)
[2021-10-16] MEDS ORDERED: ABACAVIR 300 MG TAB PO SCH (10:00)
[2021-10-16] MEDS ORDERED: DOLUTEGRAVIR 50 MG, ABACAVIR 600 MG, lamiVUDine 300 MG PO SCH (10:00)
[2021-10-16] MEDS ORDERED: DOLUTEGRAVIR 50 MG TAB PO SCH (10:00)
--- NOTE | 2021-10-16 10:03 | Progress Note ---
Assessment and Plan 1. Acute kidney injury: Vasomotor TOMAS superimposed on CKD in the setting of DKA / volume depletion. Renal US showed R kidney stone and ?mild R hydro. Urine studies ordered. IV fluids. Monitor renal function. Creatinine level is improving. Avoid nephrotoxic agents. Meds dosage based on GFR. 2. FEN: Hyperkalemia, improved, monitor. Pseudohyponatremia, monitor. Replete lytes. Monitor lytes and volume status. 3. DKA: Improving. Per protocol. Monitor. 4. Covid-19 PUI: Test pending. Monitor. 5. History of CVA with residual R hemiparesis: Supportive care. 6. HIV: Continue home meds. 7. H/o Hypertension: Monitor BP. Subjective: Patient was seen and examined at the bedside. RN at the bedside. Examination: General appearance: well-developed, appears stated age, no distress HEENT: atraumatic, GASPER Neck: trachea midline Respiratory: ctab Heart: S1S2, regular, no murmur Abdomen: obese, soft, bowel sounds heard, NT Integumentary: no obvious rash noted Neurologic: alert, conversing, R hemiparesis, aphasia Ext: no edema noted Subjective Date of service: 10/16/21 Objective - Vital Signs Vital signs: Vital Signs - 12hr 10/15/21 10/15/21 10/15/21 22:10 22:20 22:30 Temperature Pulse Rate 71 76 73 Pulse Rate [ From Monitor] Respiratory 16 16 26 H Rate Respiratory Rate [ Generalized] Blood Pressure 147/70 147/70 146/75 O2 Sat by Pulse 99 99 100 Oximetry 10/15/21 10/15/21 10/15/21 22:40 22:50 23:00 Temperature Pulse Rate 76 74 76 Pulse Rate [ From Monitor] Respiratory 12 12 21 Rate Respiratory Rate [ Generalized] Blood Pressure 147/70 147/70 162/82 O2 Sat by Pulse 100 99 99 Oximetry 10/15/21 10/15/21 10/15/21 23:10 23:14 23:20 Temperature Pulse Rate 91 H 90 80 Pulse Rate [ From Monitor] Respiratory 18 21 13 Rate Respiratory Rate [ Generalized] Blood Pressure 162/82 162/82 162/82 O2 Sat by Pulse 99 100 99 Oximetry 10/15/21 10/15/21 10/15/21 23:30 23:40 23:50 Temperature Pulse Rate 82 85 72 Pulse Rate [ From Monitor] Respiratory 24 18 23 Rate Respiratory Rate [ Generalized] Blood Pressure 162/82 162/82 162/82 O2 Sat by Pulse 98 99 98 Oximetry 10/16/21 10/16/21 10/16/21 00:00 00:10 00:20 Temperature 99.1 F Pulse Rate 74 68 74 Pulse Rate [ 92 H From Monitor] Respiratory 20 20 23 Rate Respiratory Rate [ Generalized] Blood Pressure 160/82 160/82 160/82 O2 Sat by Pulse 100 97 98 Oximetry 10/16/21 10/16/21 10/16/21 00:30 00:40 00:50 Temperature Pulse Rate 81 71 63 Pulse Rate [ From Monitor] Respiratory 10 L 23 21 Rate Respiratory Rate [ Generalized] Blood Pressure 160/82 160/82 160/82 O2 Sat by Pulse 97 98 97 Oximetry 10/16/21 10/16/21 10/16/21 01:00 01:10 01:20 Temperature Pulse Rate 86 76 66 Pulse Rate [ From Monitor] Respiratory 18 20 22 Rate Respiratory Rate [ Generalized] Blood Pressure 153/82 153/82 153/82 O2 Sat by Pulse 100 97 97 Oximetry 10/16/21 10/16/21 10/16/21 01:30 01:40 01:50 Temperature Pulse Rate 68 70 68 Pulse Rate [ From Monitor] Respiratory 22 24 19 Rate Respiratory Rate [ Generalized] Blood Pressure 153/82 153/82 153/82 O2 Sat by Pulse 97 96 96 Oximetry 10/16/21 10/16/21 10/16/21 02:00 02:10 02:20 Temperature Pulse Rate 66 79 68 Pulse Rate [ 92 H From Monitor] Respiratory 24 21 20 Rate Respiratory Rate [ Generalized] Blood Pressure 143/72 143/72 143/72 O2 Sat by Pulse 96 94 98 Oximetry 10/16/21 10/16/21 10/16/21 02:30 02:40 02:50 Temperature Pulse Rate 71 63 62 Pulse Rate [ From Monitor] Respiratory 22 21 22 Rate Respiratory Rate [ Generalized] Blood Pressure 143/72 143/72 143/72 O2 Sat by Pulse 98 98 98 Oximetry 10/16/21 10/16/21 10/16/21 03:00 03:10 03:20 Temperature Pulse Rate 64 60 67 Pulse Rate [ From Monitor] Respiratory 22 19 17 Rate Respiratory Rate [ Generalized] Blood Pressure 144/70 144/70 144/70 O2 Sat by Pulse 97 95 95 Oximetry 10/16/21 10/16/21 10/16/21 03:30 03:40 03:50 Temperature Pulse Rate 66 74 76 Pulse Rate [ From Monitor] Respiratory 23 20 24 Rate Respiratory Rate [ Generalized] Blood Pressure 144/70 144/70 144/70 O2 Sat by Pulse 97 95 96 Oximetry 10/16/21 10/16/21 10/16/21 04:00 04:10 04:20 Temperature 99.1 F Pulse Rate 60 57 L 71 Pulse Rate [ 92 H From Monitor] Respiratory 18 17 25 H Rate Respiratory Rate [ Generalized] Blood Pressure 139/75 139/75 139/75 O2 Sat by Pulse 98 96 98 Oximetry 10/16/21 10/16/21 10/16/21 04:30 04:40 04:50 Temperature Pulse Rate 69 69 77 Pulse Rate [ From Monitor] Respiratory 10 L 18 22 Rate Respiratory Rate [ Generalized] Blood Pressure 139/75 139/75 139/75 O2 Sat by Pulse 97 96 100 Oximetry 10/16/21 10/16/21 10/16/21 05:00 05:10 05:20 Temperature Pulse Rate 67 63 69 Pulse Rate [ From Monitor] Respiratory 21 20 23 Rate Respiratory Rate [ Generalized] Blood Pressure 138/71 138/71 138/71 O2 Sat by Pulse 94 96 96 Oximetry 10/16/21 10/16/21 10/16/21 05:30 05:40 05:50 Temperature Pulse Rate 68 68 66 Pulse Rate [ From Monitor] Respiratory 23 24 19 Rate Respiratory Rate [ Generalized] Blood Pressure 138/71 138/71 138/71 O2 Sat by Pulse 94 97 98 Oximetry 10/16/21 10/16/21 10/16/21 06:00 06:10 06:20 Temperature Pulse Rate 67 71 67 Pulse Rate [ From Monitor] Respiratory 19 13 20 Rate Respiratory Rate [ Generalized] Blood Pressure 138/71 130/64 130/64 O2 Sat by Pulse 96 98 Oximetry 10/16/21 10/16/21 10/16/21 06:30 06:40 06:50 Temperature Pulse Rate 59 L 82 80 Pulse Rate [ From Monitor] Respiratory 21 13 18 Rate Respiratory Rate [ Generalized] Blood Pressure 130/64 130/64 130/64 O2 Sat by Pulse 96 91 100 Oximetry 10/16/21 10/16/21 10/16/21 07:00 07:10 07:14 Temperature 99.3 F Pulse Rate 63 64 Pulse Rate [ From Monitor] Respiratory 16 22 Rate Respiratory Rate [ Generalized] Blood Pressure 133/79 133/79 O2 Sat by Pulse 95 94 Oximetry 10/16/21 10/16/21 10/16/21 07:20 07:30 07:40 Temperature Pulse Rate 63 65 75 Pulse Rate [ From Monitor] Respiratory 9 L 17 17 Rate Respiratory Rate [ Generalized] Blood Pressure 133/79 133/79 133/79 O2 Sat by Pulse 98 95 98 Oximetry 10/16/21 10/16/21 10/16/21 07:50 08:00 08:10 Temperature Pulse Rate 68 64 72 Pulse Rate [ 92 H From Monitor] Respiratory 22 24 16 Rate Respiratory Rate [ Generalized] Blood Pressure 133/79 150/72 150/72 O2 Sat by Pulse 98 96 96 Oximetry 10/16/21 10/16/21 10/16/21 08:20 08:29 08:30 Temperature Pulse Rate 71 63 68 Pulse Rate [ From Monitor] Respiratory 26 H 21 Rate Respiratory 22 Rate [ Generalized] Blood Pressure 150/72 150/72 O2 Sat by Pulse 94 99 Oximetry 10/16/21 10/16/21 10/16/21 08:40 08:50 09:00 Temperature Pulse Rate 69 63 67 Pulse Rate [ From Monitor] Respiratory 22 22 19 Rate Respiratory Rate [ Generalized] Blood Pressure 150/72 150/72 149/74 O2 Sat by Pulse 98 96 91 Oximetry 10/16/21 10/16/21 10/16/21 09:10 09:20 09:30 Temperature Pulse Rate 68 73 77 Pulse Rate [ From Monitor] Respiratory 24 14 13 Rate Respiratory Rate [ Generalized] Blood Pressure 149/74 149/74 149/74 O2 Sat by Pulse 99 100 100 Oximetry 10/16/21 10/16/21 10/16/21 09:40 09:50 10:00 Temperature Pulse Rate 86 82 73 Pulse Rate [ From Monitor] Respiratory 16 14 21 Rate Respiratory Rate [ Generalized] Blood Pressure 149/74 149/74 141/80 O2 Sat by Pulse 98 100 100 Oximetry - Lab 10/17/21 05:07 10/17/21 05:07 Most recent lab results Calcium 8.5 mg/dL (8.4-10.2) 10/16/21 06:41 Phosphorus 2.50 mg/dL (2.5-4.5) 10/16/21 06:41 Magnesium 2.00 mg/dL (1.7-2.3) 10/16/21 06:41 Medications & Allergies - Medications Allergies/Adverse Reactions: Allergies Penicillins Allergy (Verified 10/17/21 08:28) Hives Home Medications: Home Medications Medication Instructions Recorded Confirmed Last Taken Type Triumeq 600-50-300 mg Tablet 600 mg PO DAILY 05/10/20 10/16/21 Unknown History amLODIPine 10 mg PO DAILY #30 tablet 05/13/20 10/16/21 Unknown Rx Albuterol Mdi (or & Nicu Only) 2 puff IH QID PRN 10/17/21 10/17/21 Unknown History [ProAir HFA Inhaler] AtorvaSTATin [Lipitor] 20 mg PO QHS 10/17/21 10/17/21 Unknown History Cholecalciferol (Vitamin D3) 50,000 unit PO CONT 10/17/21 10/17/21 Unknown History [Vitamin D3 50,000UNIT CAP] HYDROcodone/APAP 10-325 [[place] 1 tab PO Q6HR PRN 10/17/21 10/17/21 Unknown History 10/325] Losartan [Cozaar] 50 mg PO QDAY 10/17/21 10/17/21 Unknown History Active Medications: Generic Name Dose Route Start Last Admin Trade Name Hebertq PRN Reason Stop Dose Admin Abacavir Sulfate 600 mg 10/16/21 10:00 10/16/21 09:23 Abacavir 300 Mg Tab PO 600 mg DAILY JOSE Administration Acetaminophen 650 mg 10/15/21 00:03 Acetaminophen 325 Mg Tab PO Q6H PRN Pain MILD(1-3)/Fever >100.5/DELANEY Atorvastatin Calcium 20 mg 10/15/21 22:00 10/15/21 21:15 Atorvastatin 20 Mg Tab PO 20 mg QHS JOSE Administration Dextrose 0 ml 10/16/21 08:30 Dextrose 10% *Hypoglycemia IV PRN PRN Hypoglycemia Docusate Sodium 100 mg 10/15/21 14:00 10/16/21 09:24 Docusate Sodium 100 Mg Cap PO 100 mg BID JOSE Administration Dolutegravir Sodium 50 mg 10/16/21 10:00 10/16/21 09:23 Dolutegravir 50 Mg Tab PO 50 mg DAILY JOSE Administration Famotidine 10 mg 10/15/21 22:00 02/03/22 09:24 Famotidine 10 Mg Tab PO 10 mg BID JOSE Administration Fluticasone Propionate 100 mcg 10/15/21 15:00 10/16/21 09:20 Fluticasone Propionate Nasal [place] 16 Gm NS 100 mcg QDAY JOSE Administration Heparin Sodium (Porcine) 5,000 unit 10/15/21 14:00 10/16/21 05:10 Heparin 5,000 Unit/1 Ml Vial SUB-Q 5,000 unit Q8HR JOSE Administration Insulin Human Regular 0 units 10/16/21 11:30 Insulin Regular, Human 100 Units/1 Ml SUB-Q ACHS [facility] Protocol Lamivudine 300 mg 10/16/21 10:00 10/16/21 09:24 Lamivudine 150 Mg Tab PO 300 mg DAILY JOSE Administration Morphine Sulfate 2 mg 10/15/21 00:03 10/15/21 19:28 Morphine 2 Mg/1 Ml Inj IV 2 mg Q4H PRN Administration Pain, Moderate (4-6) Morphine Sulfate 4 mg 10/15/21 00:03 10/16/21 09:23 Morphine 4 Mg/1 Ml Inj IV 4 mg Q4H PRN Administration Pain , Severe (7-10) Senna 8.8 mg 10/15/21 22:00 10/15/21 21:15 Sennosides Oral Liqd 8.8 Mg/5 Ml Oral Liqd PO 8.8 mg QHS JOSE Administration Sodium Chloride 10 ml 10/15/21 10:00 10/16/21 09:24 Sodium Chloride 0.9% 10 Ml Flush Syringe IV 10 ml BID JOSE Administration Sodium Chloride 10 ml 10/15/21 00:03 Sodium Chloride 0.9% 10 Ml Flush Syringe IV PRN PRN LINE FLUSH
[2021-10-16] MEDS ORDERED: POTASSIUM CHLORIDE 20 MEQ PACKET PO SCH ×2 (10:30→14:00)
--- NOTE | 2021-10-16 11:17 | Progress Note ---
<JOSIAH LANE - Last Filed: 10/16/21 13:12> Assessment and Plan Assessment and plan: This is a 56-year-old male with past medical history of CVA x3 with right hemiparesis, HIV, hyperlipidemia, hypertension, asthma, DM, and history of tobacco abuse admitted for hyperkalemia, DKA, and TOMAS Hospital Course to Date: 10/15: Patient medhat an examined at the bedside. Full AAO, on RA. Right hemipares is and mild aphasia noted, per patient that is baseline, deficit from previous CVA. Patient remains on the DKA protocol, continue protocol until anion gap is closedX2. Period of hypotension overnight, BP is still boderline this am, additional IVF bolus given. Continue serial lab, possible transfer to the floor later on today if transition to subQ insulin. 10/16: Gap closed this am, will transition to subQ insulin. Home meds reconciled. Patient is stable for transfer to the floor. Assessement and Plan #DKA (diabetic ketoacidosis) - Anion gap closed - Transitioned to SubQ insulin- SSI ACHS and basal lantus - Consistent carbs diet - Monitor and replace electrolytes as needed - Trend BMP, mag, & phosp - Stable for transfer to the floor #Acute Renal Failure(ARF) most likely ATN #Hyperkalemia #Metabolic acidosis - Possibly secondary to severe dehydration, DKA - No EKG changes noted - Renal function continue to improve - Nephrology on consult, appreciated recommendation - Strict intake and output - Avoid nephrotoxic medications; Renally dose medications - Monitor and replace electrolytes as needed - Trend BMP #HIV (human immunodeficiency virus infection) - Continue routine home medications - Nursing to follow up with patient for update medications list #GI/DVT prophylaxis - PPI: pepcid - Continue AC- heparin SubQ - SCDs to bilateral lower extremities while in bed The high probability of a clinically significant, sudden or life threatening deterioration of the [multiple] system(s) required my full and direct attention, intervention and personal management. The aggregate critical care time was [60] minutes. This time is in addition to time spent performing reported procedures but includes the following: [x] Data Review and interpretation [x] Patient assessment and monitoring of vital signs [x] Documentation [x] Medication orders and management Disposition Plan: ICU Total Time Spent with Patient (Minutes): 60 Hospitalist Physical - Constitutional Vitals: Temp Pulse Resp BP Pulse Ox 99.3 F 73 21 141/80 100 10/16/21 07:14 10/16/21 10:00 10/16/21 10:00 10/16/21 10:00 10/16/21 10:00 General appearance: Present: no acute distress, well-nourished Results - Labs CBC & Chem 7: 10/16/21 06:41 10/16/21 06:41 Labs: Laboratory Last Values WBC 7.5 K/mm3 (4.5-11.0) 10/16/21 06:41 RBC 2.98 M/mm3 (3.65-5.03) L 10/16/21 06:41 Hgb 9.3 gm/dl (11.8-15.2) L 10/16/21 06:41 Hct 28.2 % (35.5-45.6) L D 10/16/21 06:41 MCV 95 fl (84-94) H 10/16/21 06:41 MCH 31 pg (28-32) 10/16/21 06:41 MCHC 33 % (32-34) 10/16/21 06:41 RDW 14.6 % (13.2-15.2) 10/16/21 06:41 Plt Count 169 K/mm3 (140-440) 10/16/21 06:41 Add Manual Diff Complete 10/14/21 18:28 Total Counted 100 10/14/21 18:28 Seg Neutrophils % Mannequin Coloring Artist 10/14/21 18:28 Seg Neuts % (Manual) 94.0 % (40.0-70.0) H 10/14/21 18:28 Band Neutrophils % 0 % 10/14/21 18:28 Lymphocytes % (Manual) 1.0 % (13.4-35.0) L 10/14/21 18:28 Reactive Lymphs % (Man) 0 % 10/14/21 18:28 Monocytes % (Manual) 5.0 % (0.0-7.3) 10/14/21 18:28 Eosinophils % (Manual) 0 % (0.0-4.3) 10/14/21 18:28 Basophils % (Manual) 0 % (0.0-1.8) 10/14/21 18:28 Metamyelocytes % 0 % 10/14/21 18:28 Myelocytes % 0 % 10/14/21 18:28 Promyelocytes % 0 % 10/14/21 18:28 Blast Cells % 0 % 10/14/21 18:28 Nucleated RBC % Not Reportable 10/14/21 18:28 Seg Neutrophils # Man 10.6 K/mm3 (1.8-7.7) H 10/14/21 18:28 Band Neutrophils # 0.0 K/mm3 10/14/21 18:28 Lymphocytes # (Manual) 0.1 K/mm3 (1.2-5.4) L 10/14/21 18:28 Abs React Lymphs (Man) 0.0 K/mm3 10/14/21 18:28 Monocytes # (Manual) 0.6 K/mm3 (0.0-0.8) 10/14/21 18:28 Eosinophils # (Manual) 0.0 K/mm3 (0.0-0.4) 10/14/21 18:28 Basophils # (Manual) 0.0 K/mm3 (0.0-0.1) 10/14/21 18:28 Metamyelocytes # 0.0 K/mm3 10/14/21 18:28 Myelocytes # 0.0 K/mm3 10/14/21 18:28 Promyelocytes # 0.0 K/mm3 10/14/21 18:28 Blast Cells # 0.0 K/mm3 10/14/21 18:28 WBC Morphology Not Reportable 10/14/21 18:28 Hypersegmented Neuts Not Reportable 10/14/21 18:28 Hyposegmented Neuts Not Reportable 10/14/21 18:28 Hypogranular Neuts Not Reportable 10/14/21 18:28 Smudge Cells Not Reportable 10/14/21 18:28 Toxic Granulation Not Reportable 10/14/21 18:28 Toxic Vacuolation Few 10/14/21 18:28 Dohle Bodies Not Reportable 10/14/21 18:28 Pelger-Huet Anomaly Not Reportable 10/14/21 18:28 Joie Rods Not Reportable 10/14/21 18:28 Platelet Estimate Consistent w auto 10/14/21 18:28 Clumped Platelets 2+ 10/14/21 18:28 Plt Clumps, EDTA Not Reportable 10/14/21 18:28 Large Platelets Not Reportable 10/14/21 18:28 Giant Platelets Not Reportable 10/14/21 18:28 Platelet Satelliting Not Reportable 10/14/21 18:28 Plt Morphology Comment Not Reportable 10/14/21 18:28 RBC Morphology Not Reportable 10/14/21 18:28 Dimorphic RBCs Not Reportable 10/14/21 18:28 Polychromasia Not Reportable 10/14/21 18:28 Hypochromasia Not Reportable 10/14/21 18:28 Poikilocytosis Not Reportable 10/14/21 18:28 Anisocytosis Not Reportable 10/14/21 18:28 Microcytosis Not Reportable 10/14/21 18:28 Macrocytosis Not Reportable 10/14/21 18:28 Spherocytes Not Reportable 10/14/21 18:28 Pappenheimer Bodies Not Reportable 10/14/21 18:28 Sickle Cells Not Reportable 10/14/21 18:28 Target Cells Not Reportable 10/14/21 18:28 Tear Drop Cells Not Reportable 10/14/21 18:28 Ovalocytes Not Reportable 10/14/21 18:28 Helmet Cells Not Reportable 10/14/21 18:28 Landaverde-Vici Bodies Not Reportable 10/14/21 18:28 Sparks Rings Not Reportable 10/14/21 18:28 Kourtney Cells Not Reportable 10/14/21 18:28 Bite Cells Not Reportable 10/14/21 18:28 Crenated Cell Not Reportable 10/14/21 18:28 Elliptocytes Not Reportable 10/14/21 18:28 Acanthocytes (Spur) Not Reportable 10/14/21 18:28 Rouleaux Not Reportable 10/14/21 18:28 Hemoglobin C Crystals Not Reportable 10/14/21 18:28 Schistocytes Not Reportable 10/14/21 18:28 Malaria parasites Not Reportable 10/14/21 18:28 Raphael Bodies Not Reportable 10/14/21 18:28 Hem Pathologist Commnt No 10/14/21 18:28 VBG pH 7.129 (7.320-7.420) L* 10/14/21 18:28 Sodium 142 mmol/L (137-145) 10/16/21 06:41 Potassium 3.5 mmol/L (3.6-5.0) L 10/16/21 06:41 Chloride 110.5 mmol/L (98-107) H 10/16/21 06:41 Carbon Dioxide 20 mmol/L (22-30) L 10/16/21 06:41 Anion Gap 15 mmol/L 10/16/21 06:41 BUN 29 mg/dL (9-20) H 10/16/21 06:41 Creatinine 1.8 mg/dL (0.8-1.3) H 10/16/21 06:41 Estimated GFR 48 ml/min 10/16/21 06:41 BUN/Creatinine Ratio 16 % 10/16/21 06:41 Glucose 128 mg/dL (75-100) H 10/16/21 06:41 POC Glucose 239 mg/dL (70-105) H 10/16/21 10:43 Calcium 8.5 mg/dL (8.4-10.2) 10/16/21 06:41 Phosphorus 2.50 mg/dL (2.5-4.5) 10/16/21 06:41 Magnesium 2.00 mg/dL (1.7-2.3) 10/16/21 06:41 Total Bilirubin 0.20 mg/dL (0.1-1.2) 10/14/21 18:09 Direct Bilirubin < 0.2 mg/dL (0-0.2) 10/14/21 18:09 Indirect Bilirubin 0.0 mg/dL 10/14/21 18:09 AST 7 units/L (5-40) 10/14/21 18:09 ALT 13 units/L (7-56) 10/14/21 18:09 Alkaline Phosphatase 143 units/L (35-129) H 10/14/21 18:09 C-Reactive Protein 5.10 mg/dL (0.00-1.30) H 10/15/21 17:52 Total Protein 7.5 g/dL (6.3-8.2) 10/14/21 18:09 Albumin 4.8 g/dL (3.9-5) 10/14/21 18:09 Albumin/Globulin Ratio 1.8 % 10/14/21 18:09 Procalcitonin 0.29 ng/mL (<0.15) 10/15/21 17:52 Urine Color Yellow (Yellow) 10/15/21 Unknown Urine Turbidity Cloudy (Clear) 10/15/21 Unknown Urine pH 5.0 (5.0-7.0) 10/15/21 Unknown Ur Specific [place] 1.015 (1.003-1.030) 10/15/21 Unknown Urine Protein 30 mg/dl mg/dL (Negative) 10/15/21 Unknown Urine Glucose (UA) 50 mg/dL (Negative) 10/15/21 Unknown Urine Ketones Neg mg/dL (Negative) 10/15/21 Unknown Urine Blood Lg (Negative) 10/15/21 Unknown Urine Nitrite Neg (Negative) 10/15/21 Unknown Urine Bilirubin Neg (Negative) 10/15/21 Unknown Urine Urobilinogen < 2.0 mg/dL (<2.0) 10/15/21 Unknown Ur Leukocyte Esterase Neg (Negative) 10/15/21 Unknown Urine WBC (Auto) 5.0 /HPF (0.0-6.0) 10/15/21 Unknown Urine RBC (Auto) 2.0 /HPF (0.0-6.0) 10/15/21 Unknown Urine Bacteria (Auto) 1+ /HPF (Negative) 10/15/21 Unknown Uric Acid Crystals 3+ 10/15/21 Unknown Urine Mucus Few /HPF 10/15/21 Unknown Urine Yeast (Budding) Few /HPF 10/15/21 Unknown Microbiology: Microbiology 10/14/21 19:57 Peripheral/Venous Blood Culture - Preliminary NO GROWTH AFTER 24 HOURS 10/14/21 19:52 Peripheral/Venous Blood Culture - Preliminary NO GROWTH AFTER 24 HOURS Active Medications - Current Medications Current Medications: Generic Name Dose Route Start Last Admin Trade Name Freq PRN Reason Stop Dose Admin Abacavir Sulfate 600 mg 10/16/21 10:00 10/16/21 09:23 Abacavir 300 Mg Tab PO 600 mg DAILY JOSE Administration Acetaminophen 650 mg 10/15/21 00:03 Acetaminophen 325 Mg Tab PO Q6H PRN Pain MILD(1-3)/Fever >100.5/DELANEY Atorvastatin Calcium 20 mg 10/15/21 22:00 10/15/21 21:15 Atorvastatin 20 Mg Tab PO 20 mg QHS JOSE Administration Dextrose 0 ml 10/16/21 08:30 Dextrose 10% *Hypoglycemia IV PRN PRN Hypoglycemia Docusate Sodium 100 mg 10/15/21 14:00 10/16/21 09:24 Docusate Sodium 100 Mg Cap PO 100 mg BID JOSE Administration Dolutegravir Sodium 50 mg 10/16/21 10:00 10/16/21 09:23 Dolutegravir 50 Mg Tab PO 50 mg DAILY JOSE Administration Famotidine 10 mg 10/15/21 22:00 10/16/21 09:24 Famotidine 10 Mg Tab PO 10 mg BID JOSE Administration Fluticasone Propionate 100 mcg 10/15/21 15:00 10/16/21 09:20 Fluticasone Propionate Nasal [place] 16 Gm NS 100 mcg QDAY JOSE Administration Heparin Sodium (Porcine) 5,000 unit 10/15/21 14:00 10/16/21 05:10 Heparin 5,000 Unit/1 Ml Vial SUB-Q 5,000 unit Q8HR JOSE Administration Insulin Human Regular 0 units 10/16/21 11:30 Insulin Regular, Human 100 Units/1 Ml SUB-Q ACHS [facility] Protocol Lamivudine 300 mg 10/16/21 10:00 10/16/21 09:24 Lamivudine 150 Mg Tab PO 300 mg DAILY JOSE Administration Morphine Sulfate 2 mg 10/15/21 00:03 10/15/21 19:28 Morphine 2 Mg/1 Ml Inj IV 2 mg Q4H PRN Administration Pain, Moderate (4-6) Morphine Sulfate 4 mg 10/15/21 00:03 10/16/21 09:23 Morphine 4 Mg/1 Ml Inj IV 4 mg Q4H PRN Administration Pain , Severe (7-10) Potassium Chloride 40 meq 10/16/21 10:30 10/16/21 10:44 Potassium Chloride 20 Meq Packet PO 10/16/21 14:00 40 meq ONCE@1030 JOSE Administration Potassium Chloride 40 meq 10/16/21 14:00 Potassium Chloride 20 Meq Packet PO 10/16/21 17:00 ONCE@1400 JOSE Senna 8.8 mg 10/15/21 22:00 10/15/21 21:15 Sennosides Oral Liqd 8.8 Mg/5 Ml Oral Liqd PO 8.8 mg QHS JOSE Administration Sodium Chloride 10 ml 10/15/21 10:00 10/16/21 09:24 Sodium Chloride 0.9% 10 Ml Flush Syringe IV 10 ml BID JOSE Administration Sodium Chloride 10 ml 10/15/21 00:03 Sodium Chloride 0.9% 10 Ml Flush Syringe IV PRN PRN LINE FLUSH Nutrition/Malnutrition Assess - Dietary Evaluation Nutrition/Malnutrition Findings: Nutrition Notes Start: 10/15/21 12:27 Freq: Status: Active Protocol: Document 10/15/21 12:27 KENDY (Rec: 10/15/21 12:34 KENDY [id number]) Nutrition Notes Need for Assessment generated from: MD Order,Education Initial or Follow up Brief Note Current Diagnosis Acute Kidney Injury Other Pertinent Diagnosis AMS, DKA, HIV/AIDS, CVA, Seizures, Pneumonia pui. Current Diet NPO (since 10/15 00:05). Height 5 ft 10 in Weight 72.575 kg [place] Body Weight (kg) 75.45 BMI 22.9 Weight change and time frame None reported at admission. Weight Status Appropriate Subjective/Other Information RD consult for Nutrition Education. Pt currently on NPO. Pt still on ED, not a candidate for Nutrition Education at the time, will assess feasibility on F/U. Percent of energy/protein needs met: Pt currently on NPO. Nutrition Intervention Follow-Up By: 10/17/21 Additional Comments Nutrition education will be provided on F/U, if feasible. When pertinent, monitor food tolerance, %PO intake of meals , and BM. <SANTOS REA - Last Filed: 10/17/21 07:45> Assessment and Plan Assessment and plan: I saw and evaluated the patient. I agree with the findings and the plan of care as documented in the Nurse Practitioner's~note, with the following corrections and additions. Counselling provided. Renal function improving History Interval history: Patient seen and examined Hospitalist Physical - Constitutional Vitals: Temp Pulse Resp BP Pulse Ox 98.8 F 70 16 134/81 95 10/17/21 03:45 10/17/21 04:00 10/17/21 04:00 10/17/21 03:45 10/17/21 04:00 Results - Labs CBC & Chem 7: 10/17/21 05:07 10/17/21 05:07 Labs: Laboratory Last Values WBC 5.8 K/mm3 (4.5-11.0) 10/17/21 05:07 RBC 2.91 M/mm3 (3.65-5.03) L 10/17/21 05:07 Hgb 9.3 gm/dl (11.8-15.2) L 10/17/21 05:07 Hct 27.0 % (35.5-45.6) L 10/17/21 05:07 MCV 93 fl (84-94) 10/17/21 05:07 MCH 32 pg (28-32) 10/17/21 05:07 MCHC 34 % (32-34) 10/17/21 05:07 RDW 14.5 % (13.2-15.2) 10/17/21 05:07 Plt Count 152 K/mm3 (140-440) 10/17/21 05:07 Add Manual Diff Complete 10/14/21 18:28 Total Counted 100 10/14/21 18:28 Seg Neutrophils % Mannequin Coloring Artist 10/14/21 18:28 Seg Neuts % (Manual) 94.0 % (40.0-70.0) H 10/14/21 18:28 Band Neutrophils % 0 % 10/14/21 18:28 Lymphocytes % (Manual) 1.0 % (13.4-35.0) L 10/14/21 18:28 Reactive Lymphs % (Man) 0 % 10/14/21 18:28 Monocytes % (Manual) 5.0 % (0.0-7.3) 10/14/21 18:28 Eosinophils % (Manual) 0 % (0.0-4.3) 10/14/21 18:28 Basophils % (Manual) 0 % (0.0-1.8) 10/14/21 18:28 Metamyelocytes % 0 % 10/14/21 18:28 Myelocytes % 0 % 10/14/21 18:28 Promyelocytes % 0 % 10/14/21 18:28 Blast Cells % 0 % 10/14/21 18:28 Nucleated RBC % Not Reportable 10/14/21 18:28 Seg Neutrophils # Man 10.6 K/mm3 (1.8-7.7) H 10/14/21 18:28 Band Neutrophils # 0.0 K/mm3 10/14/21 18:28 Lymphocytes # (Manual) 0.1 K/mm3 (1.2-5.4) L 10/14/21 18:28 Abs React Lymphs (Man) 0.0 K/mm3 10/14/21 18:28 Monocytes # (Manual) 0.6 K/mm3 (0.0-0.8) 10/14/21 18:28 Eosinophils # (Manual) 0.0 K/mm3 (0.0-0.4) 10/14/21 18:28 Basophils # (Manual) 0.0 K/mm3 (0.0-0.1) 10/14/21 18:28 Metamyelocytes # 0.0 K/mm3 10/14/21 18:28 Myelocytes # 0.0 K/mm3 10/14/21 18:28 Promyelocytes # 0.0 K/mm3 10/14/21 18:28 Blast Cells # 0.0 K/mm3 10/14/21 18:28 WBC Morphology Not Reportable 10/14/21 18:28 Hypersegmented Neuts Not Reportable 10/14/21 18:28 Hyposegmented Neuts Not Reportable 10/14/21 18:28 Hypogranular Neuts Not Reportable 10/14/21 18:28 Smudge Cells Not Reportable 10/14/21 18:28 Toxic Granulation Not Reportable 10/14/21 18:28 Toxic Vacuolation Few 10/14/21 18:28 Dohle Bodies Not Reportable 10/14/21 18:28 Pelger-Huet Anomaly Not Reportable 10/14/21 18:28 Joie Rods Not Reportable 10/14/21 18:28 Platelet Estimate Consistent w auto 10/14/21 18:28 Clumped Platelets 2+ 10/14/21 18:28 Plt Clumps, EDTA Not Reportable 10/14/21 18:28 Large Platelets Not Reportable 10/14/21 18:28 Giant Platelets Not Reportable 10/14/21 18:28 Platelet Satelliting Not Reportable 10/14/21 18:28 Plt Morphology Comment Not Reportable 10/14/21 18:28 RBC Morphology Not Reportable 10/14/21 18:28 Dimorphic RBCs Not Reportable 10/14/21 18:28 Polychromasia Not Reportable 10/14/21 18:28 Hypochromasia Not Reportable 10/14/21 18:28 Poikilocytosis Not Reportable 10/14/21 18:28 Anisocytosis Not Reportable 10/14/21 18:28 Microcytosis Not Reportable 10/14/21 18:28 Macrocytosis Not Reportable 10/14/21 18:28 Spherocytes Not Reportable 10/14/21 18:28 Pappenheimer Bodies Not Reportable 10/14/21 18:28 Sickle Cells Not Reportable 10/14/21 18:28 Target Cells Not Reportable 10/14/21 18:28 Tear Drop Cells Not Reportable 10/14/21 18:28 Ovalocytes Not Reportable 10/14/21 18:28 Helmet Cells Not Reportable 10/14/21 18:28 Landaverde-Vici Bodies Not Reportable 10/14/21 18:28 Sparks Rings Not Reportable 10/14/21 18:28 Kourtney Cells Not Reportable 10/14/21 18:28 Bite Cells Not Reportable 10/14/21 18:28 Crenated Cell Not Reportable 10/14/21 18:28 Elliptocytes Not Reportable 10/14/21 18:28 Acanthocytes (Spur) Not Reportable 10/14/21 18:28 Rouleaux Not Reportable 10/14/21 18:28 Hemoglobin C Crystals Not Reportable 10/14/21 18:28 Schistocytes Not Reportable 10/14/21 18:28 Malaria parasites Not Reportable 10/14/21 18:28 Raphael Bodies Not Reportable 10/14/21 18:28 Hem Pathologist Commnt No 10/14/21 18:28 VBG pH 7.129 (7.320-7.420) L* 10/14/21 18:28 Sodium 135 mmol/L (137-145) L 10/17/21 05:07 Potassium 3.9 mmol/L (3.6-5.0) 10/17/21 05:07 Chloride 106.6 mmol/L (98-107) 10/17/21 05:07 Carbon Dioxide 19 mmol/L (22-30) L 10/17/21 05:07 Anion Gap 13 mmol/L 10/17/21 05:07 BUN 25 mg/dL (9-20) H 10/17/21 05:07 Creatinine 1.7 mg/dL (0.8-1.3) H 10/17/21 05:07 Estimated GFR 51 ml/min 10/17/21 05:07 BUN/Creatinine Ratio 15 % 10/17/21 05:07 Glucose 314 mg/dL (75-100) H 10/17/21 05:07 POC Glucose 226 mg/dL (70-105) H 10/17/21 00:30 Calcium 8.5 mg/dL (8.4-10.2) 10/17/21 05:07 Phosphorus 2.30 mg/dL (2.5-4.5) L 10/17/21 05:07 Magnesium 1.80 mg/dL (1.7-2.3) 10/17/21 05:07 Total Bilirubin 0.20 mg/dL (0.1-1.2) 10/14/21 18:09 Direct Bilirubin < 0.2 mg/dL (0-0.2) 10/14/21 18:09 Indirect Bilirubin 0.0 mg/dL 10/14/21 18:09 AST 7 units/L (5-40) 10/14/21 18:09 ALT 13 units/L (7-56) 10/14/21 18:09 Alkaline Phosphatase 143 units/L (35-129) H 10/14/21 18:09 C-Reactive Protein 5.10 mg/dL (0.00-1.30) H 10/15/21 17:52 Total Protein 7.5 g/dL (6.3-8.2) 10/14/21 18:09 Albumin 4.8 g/dL (3.9-5) 10/14/21 18:09 Albumin/Globulin Ratio 1.8 % 10/14/21 18:09 Procalcitonin 0.29 ng/mL (<0.15) 10/15/21 17:52 Urine Color Yellow (Yellow) 10/15/21 Unknown Urine Turbidity Cloudy (Clear) 10/15/21 Unknown Urine pH 5.0 (5.0-7.0) 10/15/21 Unknown Ur Specific [place] 1.015 (1.003-1.030) 10/15/21 Unknown Urine Protein 30 mg/dl mg/dL (Negative) 10/15/21 Unknown Urine Glucose (UA) 50 mg/dL (Negative) 10/15/21 Unknown Urine Ketones Neg mg/dL (Negative) 10/15/21 Unknown Urine Blood Lg (Negative) 10/15/21 Unknown Urine Nitrite Neg (Negative) 10/15/21 Unknown Urine Bilirubin Neg (Negative) 10/15/21 Unknown Urine Urobilinogen < 2.0 mg/dL (<2.0) 10/15/21 Unknown Ur Leukocyte Esterase Neg (Negative) 10/15/21 Unknown Urine WBC (Auto) 5.0 /HPF (0.0-6.0) 10/15/21 Unknown Urine RBC (Auto) 2.0 /HPF (0.0-6.0) 10/15/21 Unknown Urine Bacteria (Auto) 1+ /HPF (Negative) 10/15/21 Unknown Uric Acid Crystals 3+ 10/15/21 Unknown Urine Mucus Few /HPF 10/15/21 Unknown Urine Yeast (Budding) Few /HPF 10/15/21 Unknown Coronavirus (PCR) Negative (Negative) 10/16/21 08:20 Microbiology: Microbiology 10/14/21 19:57 Peripheral/Venous Blood Culture - Preliminary NO GROWTH AFTER 48 HOURS 10/14/21 19:52 Peripheral/Venous Blood Culture - Preliminary NO GROWTH AFTER 48 HOURS Active Medications - Current Medications Current Medications: Generic Name Dose Route Start Last Admin Trade Name Freq PRN Reason Stop Dose Admin Abacavir Sulfate 600 mg 10/16/21 10:00 10/16/21 09:23 Abacavir 300 Mg Tab PO 600 mg DAILY JOSE Administration Acetaminophen 650 mg 10/15/21 00:03 Acetaminophen 325 Mg Tab PO Q6H PRN Pain MILD(1-3)/Fever >100.5/DELANEY Hydrocodone Bitart/Acetaminophen 1 each 10/16/21 14:00 10/17/21 06:11 Hydrocodone/Acetaminophen 5-325 Mg Tab PO 1 each Q6H PRN Administration Pain, Moderate (4-6) Amlodipine Besylate 10 mg 10/17/21 10:00 Amlodipine 10 Mg Tab PO DAILY [facility] Atorvastatin Calcium 20 mg 10/15/21 22:00 10/16/21 21:32 Atorvastatin 20 Mg Tab PO 20 mg QHS JOSE Administration Dextrose 0 ml 10/16/21 08:30 Dextrose 10% *Hypoglycemia IV PRN PRN Hypoglycemia Docusate Sodium 100 mg 10/15/21 14:00 10/16/21 21:33 Docusate Sodium 100 Mg Cap PO 100 mg BID JOSE Administration Dolutegravir Sodium 50 mg 10/16/21 10:00 10/16/21 09:23 Dolutegravir 50 Mg Tab PO 50 mg DAILY JOSE Administration Famotidine 10 mg 10/15/21 22:00 10/16/21 21:32 Famotidine 10 Mg Tab PO 10 mg BID JOSE Administration Fluticasone Propionate 100 mcg 10/15/21 15:00 10/16/21 09:20 Fluticasone Propionate Nasal [place] 16 Gm NS 100 mcg QDAY JOSE Administration Heparin Sodium (Porcine) 5,000 unit 10/15/21 14:00 10/17/21 05:19 Heparin 5,000 Unit/1 Ml Vial SUB-Q 5,000 unit Q8HR JOSE Administration Insulin Glargine 30 units 10/16/21 22:00 10/16/21 21:39 Insulin Glargine 100 Units/Ml SUB-Q 30 units QHS JOSE Administration Insulin Human Regular 0 units 10/16/21 11:30 10/16/21 21:37 Insulin Regular, Human 100 Units/1 Ml SUB-Q 4 units ACHS JOSE Administration Protocol Lamivudine 300 mg 10/16/21 10:00 10/16/21 09:24 Lamivudine 150 Mg Tab PO 300 mg DAILY JOSE Administration Losartan Potassium 50 mg 10/17/21 10:00 Losartan 50 Mg Tab PO QDAY JOSE Morphine Sulfate 2 mg 10/15/21 00:03 10/17/21 01:34 Morphine 2 Mg/1 Ml Inj IV 2 mg Q4H PRN Administration Pain , Severe (7-10) Senna 8.8 mg 10/15/21 22:00 10/16/21 21:45 Sennosides Oral Liqd 8.8 Mg/5 Ml Oral Liqd PO Not Given QHS [facility] Sodium Chloride 10 ml 10/15/21 10:00 10/16/21 21:46 Sodium Chloride 0.9% 10 Ml Flush Syringe IV Not Given BID JOSE Sodium Chloride 10 ml 10/15/21 00:03 Sodium Chloride 0.9% 10 Ml Flush Syringe IV PRN PRN LINE FLUSH Nutrition/Malnutrition Assess - Dietary Evaluation Nutrition/Malnutrition Findings: Nutrition Notes Start: 10/15/21 12:27 Freq: Status: Active Protocol: Document 10/16/21 11:36 KENDY (Rec: 10/16/21 12:14 KENDY [id number]) Nutrition Notes 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 Current Diet Consistent carbohydrates ( since B 10/16). Labs/Tests 10/16: K 3.5, Cl 110.5, CO2 20 , BUN 29, Crea 1.8, Glu 128. Pertinent Medications 10/16: KCl 40 mEq PO, others nutritionally unremarkable. 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 No body weight change reported in 1 day. Weight Status Appropriate Subjective/Other Information RD consult for New Onset Diabetes. No reports available on Pt's PO intake of meals at the time . Pt has missing teeth, according to Physical Assessment History notes. Pt has hemiparesis secondary to CVA X3, according to [facility] & Physical notes. Pt has known Hx of borderline T2DM, with no medications, according to Progress notes. Pt still on high risk, not a candidate for Nutrition Education at the time, will assess feasibility on F/U. Percent of energy/protein needs met: Prescribed Consistent Carbohydrates Diet provides for energy/protein needs (2, 061 Kcal/91 g) during LOS. Burn Absent Trauma Absent GI Symptoms None Food Allergy No Skin Integrity/Comment Clear, warm dry. Minimum of two criteria No #1 Nutrition Diagnosis Food and nutrition-related knowledge deficit Etiology Pt has uncontroled Diabetes- New Onset Diabetes. As Evidenced by Signs and Symptoms Pt BG 1,550 mg/dL at admission , DKA dignosis. Is patient on ventilator? No Is Patient Ambulatory and/or Out of Bed Yes REE-([facility]-ambulatory/OOB) [ 2036. NUTR.MSJOOB] Kcal/Kg value to use for calculation 20 Approximate Energy Requirements Using 1452 kcal/Kg Calculation Used for Recommendations Kcal/kg Additional Notes Protein: 0.8-1.2 g/Kg; 58-88 g /day. Fluids: 1 ml/Kcal, or as per MD. Nutrition Intervention Change Diet Order: Continue Consistent Carbohydrates Diet. Education Handouts Provided AND: MyPlate For Meal Planning , Using Nutrition Labels: Carbohydrate, and Metabolic Syndrome Menu. Goal #1 During LOS, provide Pt with nutrition education to foster behavioral changes towards a healthy lifestyle. Follow-Up By: 10/23/21 Additional Comments Nutrition education will be provided on F/U, if feasible. Continue monitoring food tolerance, %PO intake of meals , and BM.
[2021-10-16] MEDS: INSULIN REGULAR, HUMAN 100 UNITS/1 ML SUB-Q SCH ×3 (11:57→21:37)
[2021-10-16] MEDS ORDERED: POTASSIUM CHLORIDE ER 20 MEQ TAB PO ONE (12:00)
--- NOTE | 2021-10-16 13:28 | Progress Note ---
Assessment and Plan Diabetic ketoacidosis Toxic metabolic encephalopathy HIV positive Acute kidney injury H/o CVA Hyperlipidemia Asthma Severe metabolic acidosis Pseudohyponatremia Hyperkalemia - prn supplemental oxygen to keep O2 sats > 90% - prn bronchodilators (GRACIELA) with pulm hygiene per RT - continue to avoid nephrotoxins, renally dose all medications - mobility protocols to prevent pressure ulcers - PT/OT as tolerated - Wound care per RN/WCT - continue accuchecks with glycemic control per SSI for target blood glucose < 180 mg/dL - tobacco abstinence counseled at the bedside - home oxygen evaluation at discharge - GI & VTE prophylaxis - Flu & pneumovax per protocol - prn analgesia per pain score - continue other care per attending / other consultants ... re-evaluate in am & prn ... transfer to medical floor Subjective Date of service: 10/16/21 Principal diagnosis: Diabetic ketoacidosis; AMS; TOMAS; HIV positive; H/o CVA; Asthma Interval history: Patient is seen today for: Diabetic ketoacidosis; AMS; TOMAS; HIV positive; H/o CVA; Asthma Seen and examined at bedside; 24hour events reviewed; nursing and respiratory care staff consulted; no adverse overnight events reported to me; resting in bed; off IV insulin; No N/V/F/C Objective Vital Signs - 12hr 10/16/21 10/16/21 10/16/21 01:30 01:40 01:50 Temperature Pulse Rate 68 70 68 Pulse Rate [ From Monitor] Respiratory 22 24 19 Rate Respiratory Rate [ Generalized] Blood Pressure 153/82 153/82 153/82 O2 Sat by Pulse 97 96 96 Oximetry 10/16/21 10/16/21 10/16/21 02:00 02:10 02:20 Temperature Pulse Rate 66 79 68 Pulse Rate [ 92 H From Monitor] Respiratory 24 21 20 Rate Respiratory Rate [ Generalized] Blood Pressure 143/72 143/72 143/72 O2 Sat by Pulse 96 94 98 Oximetry 10/16/21 10/16/21 10/16/21 02:30 02:40 02:50 Temperature Pulse Rate 71 63 62 Pulse Rate [ From Monitor] Respiratory 22 21 22 Rate Respiratory Rate [ Generalized] Blood Pressure 143/72 143/72 143/72 O2 Sat by Pulse 98 98 98 Oximetry 10/16/21 10/16/21 10/16/21 03:00 03:10 03:20 Temperature Pulse Rate 64 60 67 Pulse Rate [ From Monitor] Respiratory 22 19 17 Rate Respiratory Rate [ Generalized] Blood Pressure 144/70 144/70 144/70 O2 Sat by Pulse 97 95 95 Oximetry 10/16/21 10/16/21 10/16/21 03:30 03:40 03:50 Temperature Pulse Rate 66 74 76 Pulse Rate [ From Monitor] Respiratory 23 20 24 Rate Respiratory Rate [ Generalized] Blood Pressure 144/70 144/70 144/70 O2 Sat by Pulse 97 95 96 Oximetry 10/16/21 10/16/21 10/16/21 04:00 04:10 04:20 Temperature 99.1 F Pulse Rate 60 57 L 71 Pulse Rate [ 92 H From Monitor] Respiratory 18 17 25 H Rate Respiratory Rate [ Generalized] Blood Pressure 139/75 139/75 139/75 O2 Sat by Pulse 98 96 98 Oximetry 10/16/21 10/16/21 10/16/21 04:30 04:40 04:50 Temperature Pulse Rate 69 69 77 Pulse Rate [ From Monitor] Respiratory 10 L 18 22 Rate Respiratory Rate [ Generalized] Blood Pressure 139/75 139/75 139/75 O2 Sat by Pulse 97 96 100 Oximetry 10/16/21 10/16/21 10/16/21 05:00 05:10 05:20 Temperature Pulse Rate 67 63 69 Pulse Rate [ From Monitor] Respiratory 21 20 23 Rate Respiratory Rate [ Generalized] Blood Pressure 138/71 138/71 138/71 O2 Sat by Pulse 94 96 96 Oximetry 10/16/21 10/16/21 10/16/21 05:30 05:40 05:50 Temperature Pulse Rate 68 68 66 Pulse Rate [ From Monitor] Respiratory 23 24 19 Rate Respiratory Rate [ Generalized] Blood Pressure 138/71 138/71 138/71 O2 Sat by Pulse 94 97 98 Oximetry 10/16/21 10/16/21 10/16/21 06:00 06:10 06:20 Temperature Pulse Rate 67 71 67 Pulse Rate [ From Monitor] Respiratory 19 13 20 Rate Respiratory Rate [ Generalized] Blood Pressure 138/71 130/64 130/64 O2 Sat by Pulse 96 98 Oximetry 10/16/21 10/16/21 10/16/21 06:30 06:40 06:50 Temperature Pulse Rate 59 L 82 80 Pulse Rate [ From Monitor] Respiratory 21 13 18 Rate Respiratory Rate [ Generalized] Blood Pressure 130/64 130/64 130/64 O2 Sat by Pulse 96 91 100 Oximetry 10/16/21 10/16/21 10/16/21 07:00 07:10 07:14 Temperature 99.3 F Pulse Rate 63 64 Pulse Rate [ From Monitor] Respiratory 16 22 Rate Respiratory Rate [ Generalized] Blood Pressure 133/79 133/79 O2 Sat by Pulse 95 94 Oximetry 10/16/21 10/16/21 10/16/21 07:20 07:30 07:40 Temperature Pulse Rate 63 65 75 Pulse Rate [ From Monitor] Respiratory 9 L 17 17 Rate Respiratory Rate [ Generalized] Blood Pressure 133/79 133/79 133/79 O2 Sat by Pulse 98 95 98 Oximetry 10/16/21 10/16/21 10/16/21 07:50 08:00 08:10 Temperature Pulse Rate 68 64 72 Pulse Rate [ 92 H From Monitor] Respiratory 22 24 16 Rate Respiratory Rate [ Generalized] Blood Pressure 133/79 150/72 150/72 O2 Sat by Pulse 98 96 96 Oximetry 10/16/21 10/16/21 10/16/21 08:20 08:29 08:30 Temperature Pulse Rate 71 63 68 Pulse Rate [ From Monitor] Respiratory 26 H 21 Rate Respiratory 22 Rate [ Generalized] Blood Pressure 150/72 150/72 O2 Sat by Pulse 94 99 Oximetry 10/16/21 10/16/21 10/16/21 08:40 08:50 09:00 Temperature Pulse Rate 69 63 67 Pulse Rate [ From Monitor] Respiratory 22 22 19 Rate Respiratory Rate [ Generalized] Blood Pressure 150/72 150/72 149/74 O2 Sat by Pulse 98 96 91 Oximetry 10/16/21 10/16/21 10/16/21 09:10 09:20 09:30 Temperature Pulse Rate 68 73 77 Pulse Rate [ From Monitor] Respiratory 24 14 13 Rate Respiratory Rate [ Generalized] Blood Pressure 149/74 149/74 149/74 O2 Sat by Pulse 99 100 100 Oximetry 10/16/21 10/16/21 10/16/21 09:40 09:50 10:00 Temperature Pulse Rate 86 82 73 Pulse Rate [ From Monitor] Respiratory 16 14 21 Rate Respiratory Rate [ Generalized] Blood Pressure 149/74 149/74 141/80 O2 Sat by Pulse 98 100 100 Oximetry 10/16/21 10/16/21 10/16/21 10:10 10:20 10:30 Temperature Pulse Rate 78 77 72 Pulse Rate [ From Monitor] Respiratory 29 H 24 23 Rate Respiratory Rate [ Generalized] Blood Pressure 141/80 141/80 141/80 O2 Sat by Pulse 92 94 96 Oximetry 10/16/21 10/16/21 10/16/21 10:40 10:50 11:00 Temperature Pulse Rate 70 73 69 Pulse Rate [ From Monitor] Respiratory 21 22 21 Rate Respiratory Rate [ Generalized] Blood Pressure 141/80 141/80 149/73 O2 Sat by Pulse 95 94 98 Oximetry 10/16/21 10/16/21 10/16/21 11:10 11:20 11:30 Temperature Pulse Rate 72 61 69 Pulse Rate [ From Monitor] Respiratory 24 24 22 Rate Respiratory Rate [ Generalized] Blood Pressure 149/73 149/73 149/73 O2 Sat by Pulse 94 97 94 Oximetry 10/16/21 10/16/21 10/16/21 11:40 11:49 11:50 Temperature 98.1 F Pulse Rate 75 73 Pulse Rate [ From Monitor] Respiratory 22 14 Rate Respiratory Rate [ Generalized] Blood Pressure 149/73 149/73 O2 Sat by Pulse 95 98 Oximetry 10/16/21 10/16/21 10/16/21 12:00 12:10 12:20 Temperature Pulse Rate 78 80 85 Pulse Rate [ 70 From Monitor] Respiratory 17 18 19 Rate Respiratory Rate [ Generalized] Blood Pressure 141/78 141/78 141/78 O2 Sat by Pulse 98 93 90 Oximetry 10/16/21 10/16/21 10/16/21 12:30 12:40 12:50 Temperature Pulse Rate 75 76 63 Pulse Rate [ From Monitor] Respiratory 25 H 22 15 Rate Respiratory Rate [ Generalized] Blood Pressure 141/78 141/78 141/78 O2 Sat by Pulse 99 91 99 Oximetry 10/16/21 13:00 Temperature Pulse Rate 67 Pulse Rate [ From Monitor] Respiratory 16 Rate Respiratory Rate [ Generalized] Blood Pressure 145/81 O2 Sat by Pulse 97 Oximetry Constitutional: no acute distress Eyes: non-icteric ENT: oropharynx moist Neck: supple, no lymphadenopathy, no JVD Effort: normal Ascultation: Bilateral: rhonchi Percussion: Bilateral: not dull Cardiovascular: regular rate and rhythm Gastrointestinal: normoactive bowel sounds, soft, non-tender, non-distended Extremities: no cyanosis, no edema, pulses normal, no ischemia or petechiae Neurologic: non-focal exam (grossly), pupils equal and round, CN II-XII normal, motor strength normal and Psychiatric: mood appropriate, affect normal CBC and BMP: 10/17/21 05:07 10/18/21 04:26 Abnormal lab findings: Abnormal Labs 10/14/21 10/14/21 10/14/21 17:59 18:09 18:09 WBC RBC Hgb Hct MCV MCHC Seg Neuts % (Manual) Lymphocytes % (Manual) Seg Neutrophils # Man Lymphocytes # (Manual) VBG pH Sodium 118 L* Potassium 8.8 H* Chloride 77.6 L Carbon Dioxide 11 L BUN 77 H Creatinine 5.0 H Glucose 1555 H* POC Glucose > 600 H Phosphorus 11.60 H Magnesium 3.60 H Alkaline Phosphatase 143 H C-Reactive Protein 10/14/21 10/14/21 10/14/21 18:28 18:28 19:21 WBC 11.3 H RBC Hgb Hct MCV 107 H MCHC 28 L Seg Neuts % (Manual) 94.0 H Lymphocytes % (Manual) 1.0 L Seg Neutrophils # Man 10.6 H Lymphocytes # (Manual) 0.1 L VBG pH 7.129 L* Sodium Potassium Chloride Carbon Dioxide BUN Creatinine Glucose POC Glucose > 600 H Phosphorus Magnesium Alkaline Phosphatase C-Reactive Protein 10/14/21 10/14/21 10/14/21 20:44 21:13 22:36 WBC RBC Hgb Hct MCV MCHC Seg Neuts % (Manual) Lymphocytes % (Manual) Seg Neutrophils # Man Lymphocytes # (Manual) VBG pH Sodium Potassium Chloride Carbon Dioxide 17 L BUN 73 H Creatinine 4.6 H Glucose 997 H* 890 H* POC Glucose > 600 H Phosphorus Magnesium Alkaline Phosphatase C-Reactive Protein 10/15/21 10/15/21 10/15/21 00:22 00:50 00:50 WBC RBC Hgb Hct MCV MCHC Seg Neuts % (Manual) Lymphocytes % (Manual) Seg Neutrophils # Man Lymphocytes # (Manual) VBG pH Sodium Potassium Chloride Carbon Dioxide 19 L BUN 72 H Creatinine 4.1 H Glucose 727 H* POC Glucose > 600 H Phosphorus 6.60 H D Magnesium 3.40 H Alkaline Phosphatase C-Reactive Protein 10/15/21 10/15/21 10/15/21 02:24 03:01 03:54 WBC RBC Hgb Hct MCV MCHC Seg Neuts % (Manual) Lymphocytes % (Manual) Seg Neutrophils # Man Lymphocytes # (Manual) VBG pH Sodium Potassium Chloride Carbon Dioxide BUN Creatinine Glucose POC Glucose 537 H 529 H 478 H Phosphorus Magnesium Alkaline Phosphatase C-Reactive Protein 10/15/21 10/15/21 10/15/21 04:23 04:56 05:57 WBC RBC Hgb Hct MCV MCHC Seg Neuts % (Manual) Lymphocytes % (Manual) Seg Neutrophils # Man Lymphocytes # (Manual) VBG pH Sodium Potassium Chloride 111.0 H Carbon Dioxide 19 L BUN 64 H Creatinine 3.4 H Glucose 402 H POC Glucose 423 H 296 H Phosphorus Magnesium Alkaline Phosphatase C-Reactive Protein 10/15/21 10/15/21 10/15/21 06:54 08:03 09:02 WBC RBC Hgb Hct MCV MCHC Seg Neuts % (Manual) Lymphocytes % (Manual) Seg Neutrophils # Man Lymphocytes # (Manual) VBG pH Sodium Potassium Chloride Carbon Dioxide BUN Creatinine Glucose POC Glucose 266 H 140 H 119 H Phosphorus Magnesium Alkaline Phosphatase C-Reactive Protein 10/15/21 10/15/21 10/15/21 11:22 12:51 13:43 WBC RBC Hgb Hct MCV MCHC Seg Neuts % (Manual) Lymphocytes % (Manual) Seg Neutrophils # Man Lymphocytes # (Manual) VBG pH Sodium 150 H Potassium Chloride 120.1 H Carbon Dioxide 14 L BUN 52 H Creatinine 2.9 H Glucose 198 H POC Glucose 145 H 215 H Phosphorus Magnesium 2.50 H Alkaline Phosphatase C-Reactive Protein 10/15/21 10/15/21 10/15/21 14:01 14:58 16:08 WBC RBC Hgb Hct MCV MCHC Seg Neuts % (Manual) Lymphocytes % (Manual) Seg Neutrophils # Man Lymphocytes # (Manual) VBG pH Sodium Potassium Chloride Carbon Dioxide BUN Creatinine Glucose POC Glucose 137 H 173 H 168 H Phosphorus Magnesium Alkaline Phosphatase C-Reactive Protein 10/15/21 10/15/21 10/15/21 17:49 17:52 22:10 WBC RBC Hgb Hct MCV MCHC Seg Neuts % (Manual) Lymphocytes % (Manual) Seg Neutrophils # Man Lymphocytes # (Manual) VBG pH Sodium 148 H Potassium Chloride 117.4 H Carbon Dioxide 18 L BUN 46 H Creatinine 2.6 H Glucose 141 H POC Glucose 137 H 135 H Phosphorus Magnesium Alkaline Phosphatase C-Reactive Protein 5.10 H 10/16/21 10/16/21 10/16/21 01:03 01:07 02:21 WBC RBC Hgb Hct MCV MCHC Seg Neuts % (Manual) Lymphocytes % (Manual) Seg Neutrophils # Man Lymphocytes # (Manual) VBG pH Sodium Potassium 3.5 L Chloride 110.4 H Carbon Dioxide 20 L BUN 36 H Creatinine 2.1 H Glucose 257 H POC Glucose 210 H 207 H Phosphorus 2.20 L D Magnesium Alkaline Phosphatase C-Reactive Protein 10/16/21 10/16/21 10/16/21 03:41 05:04 06:13 WBC RBC Hgb Hct MCV MCHC Seg Neuts % (Manual) Lymphocytes % (Manual) Seg Neutrophils # Man Lymphocytes # (Manual) VBG pH Sodium Potassium Chloride Carbon Dioxide BUN Creatinine Glucose POC Glucose 161 H 137 H 116 H Phosphorus Magnesium Alkaline Phosphatase C-Reactive Protein 10/16/21 10/16/21 10/16/21 06:41 06:41 09:22 WBC RBC 2.98 L Hgb 9.3 L Hct 28.2 L D MCV 95 H MCHC Seg Neuts % (Manual) Lymphocytes % (Manual) Seg Neutrophils # Man Lymphocytes # (Manual) VBG pH Sodium Potassium 3.5 L Chloride 110.5 H Carbon Dioxide 20 L BUN 29 H Creatinine 1.8 H Glucose 128 H POC Glucose 175 H Phosphorus Magnesium Alkaline Phosphatase C-Reactive Protein 10/16/21 10/16/21 10/16/21 10:43 11:16 11:29 WBC RBC Hgb Hct MCV MCHC Seg Neuts % (Manual) Lymphocytes % (Manual) Seg Neutrophils # Man Lymphocytes # (Manual) VBG pH Sodium Potassium Chloride Carbon Dioxide BUN Creatinine Glucose POC Glucose 239 H 227 H 225 H Phosphorus Magnesium Alkaline Phosphatase C-Reactive Protein Allied health notes reviewed: nursing
[2021-10-16] MEDS: HYDROcodone/ACETAMINOPHEN 5-325 MG TAB PO PRN ×2 (16:05→21:32)
--- NOTE | 2021-10-16 16:41 | Ultrasound Report ---
Renal ultrasound INDICATION: Nephrolithiasis FINDINGS: The right kidney measures 12 cm in length and the left measures 11 cm in length. There is a 5 mm calculus within the right mid kidney. There is slight right hydronephrosis. No left hydronephro sis. Urinary bladder is fluid distended IMPRESSION: 5 mm calculus within the right mid kidney. Question borderline right-sided hydronephrosis . Signer Name: Rick Prince MD Signed: 10/16/2021 4:37 PM Workstation Name: [id number]
[2021-10-16] MEDS: INSULIN GLARGINE 100 UNITS/ML SUB-Q SCH (21:39)
[2021-10-16] MEDS: SENNOSIDES ORAL LIQD 8.8 MG/5 ML ORAL LIQD PO SCH (21:45)
--- NOTE | 2021-10-16 22:58 | Consultation ---
DATE OF CONSULTATION: 10/15/2021 PULMONARY CRITICAL CARE CONSULT NOTE CONSULTING PHYSICIAN: Dr. Lucero Pruitt and Dr. Ken. REASON FOR CONSULTATION: Diabetic ketoacidosis, critical care management. 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 He also was brought in for changes in mental status and garbled speech. He stated that he had been diagnosed with diabetes about 2 months earlier in the Emergency Room, he had a serum glucose of 1555 and was indeed in diabetic ketoacidosis. A CT of the head showed remote left MCA infarction and chest x-ray showed airspace opacity in the left lung base suspicious for atelectasis or pneumonia. He was admitted to the intensive care unit where I stopped by to see him, he was placed empirically under contact and airborne precautions for COVID-19 testing. When I stopped by to see him, he was resting in bed. He remained on insulin drip going at about 4 units per hour at the time I saw him, he has some aphasia, but he may also have receptive aphasia. He denied any pain when I saw him, he was feeling a little bit better overall. No nausea and vomiting was reported. With regards to tobacco use/abuse history, he is described as a former smoker, unable to quantify, that really was as much of the history of presentation as I have. PAST MEDICAL HISTORY: Cerebrovascular accident, HIV positive, hyperlipidemia, hypertension, history of asthma, history of tobacco abuse. PAST SURGICAL HISTORY: He has had right foot surgery in 02/2020. MEDICATIONS: He was on at the time I stopped by to see him, according to the medication administration record included the following: Tylenol 650 mg p.o. q. 6 hours p.r.n. mild pain or fevers, heparin 5000 units subcutaneous q. 8 hours, insulin drip was going as mentioned above. D5 half NS with 20 of KCl per liter at 125 per hour, Levaquin 500 mg IV q 48 hours, LR, he received 1 liter bolus, morphine sulfate 2 mg IV q. 4 hours p.r.n. moderate pain and 4 mg IV q. 4 hours p.r.n. severe pain. ALLERGIES: PENICILLIN. DIET: Well built gentleman. Denies acute weight loss or gain in the preceding 2 weeks to months. FAMILY AND SOCIAL HISTORY: According to the records, it is unclear if he lives in the community or [facility]. He is described as a former smoker. No current alcohol, tobacco or illicit drug use or abuse. FAMILY HISTORY: Otherwise unknown. REVIEW OF SYSTEMS: Difficult to obtain secondary to the patient's medical and mental condition. Since he has been here, no gross hematochezia or melena, no gross hematuria, no hematemesis, no hemoptysis, no witnessed seizures. Review of systems otherwise unobtainable or as in body of history above. PHYSICAL EXAMINATION: VITAL SIGNS: On presentation. Review of the vital signs shows that he was afebrile, temperature 98.1 degrees Fahrenheit, pulse of 81, respiratory rate of 16, blood pressure 145/77, O2 sats 100%, inspired oxygen concentration was not recorded at that time. GENERAL: He is a well-built male. Normocephalic, atraumatic. Talking with me with full sentences but mildly increased respiratory effort at rest. HEAD, EYES, EARS, NOSE AND THROAT: Anicteric. No conjunctival erythema. Oropharynx was moist. NECK: No gross jugular venous distention, no thyromegaly. Grossly, there were no palpable lymph nodes in the supraclavicular or submandibular lymph node chains. LUNGS: Auscultation of both lung nguyễn unremarkable. Good bilateral air movement. No wheezing. HEART: Sounds 1 and 2 are heard. There were regular rate and rhythm at the time of my evaluation without overt rubs or murmurs. ABDOMEN: Soft, full, protuberant. Bowel sounds are positive, nontender, no palpable hepatosplenomegaly. EXTREMITIES: Without overt digital clubbing or cyanosis, no pedal edema. Pedal pulses were 2+ bilaterally. NEUROLOGIC: Pupils were equal, round, about 4 mm, reactive to light. Extraocular muscle movements were intact. He moves all 4 extremities spontaneously. He does seem to have a mild cognitive dysfunction, all just the expressive and receptive aphasias. SKIN: Normal turgor in the areas I examined without overt cellulitis or rash. Please see the wound care nurses' notes for full description of his skin. PSYCHIATRIC: Mood was normal. Affect was appropriate. He had poor judgment and insight. LABORATORY DATA: From my review are as follows: Admission white cell count 11,300, hemoglobin 12.2, hematocrit 43.2, platelet count 329. No band forms on the manual differential. Venous blood gas showed a pH of 7.13. Serum sodium was 108, serum potassium 8.8, chloride 78, BUN was 11, potassium 8.8, chloride 78, bicarbonate was 11, BUN was 77, creatinine was 5.0, glucose 1555. Magnesium and phosphorus levels were elevated. Otherwise, liver function tests are within normal limits. Coronavirus PCR testing has been sent. The creatinine level is down to 3.4 with volume resuscitation. Urinalysis negative for nitrites and leukocyte esterase. Two sets of blood cultures, no growth to date. Chest x-ray was done. I have reviewed the images as well as the radiologist's interpretation. Essentially, there is some left lower lobe likely plate-like atelectasis, but this certainly cannot rule out a pneumonia. No gross pneumothorax, no gross bony fractures, no overt cardiomegaly. A CT scan of the head was done and it showed a remote left MCA infarct, no acute intracranial abnormalities. X-rays of the foot showed no acute osseous finding, right foot. ASSESSMENT: 1. Diabetic ketoacidosis. 2. Toxic metabolic encephalopathy at presentation. 3. HIV positive. 4. Acute kidney injury. 5. History of cerebrovascular accident. 6. History of hyperlipidemia. 7. History of asthma. 8. Severe metabolic acidosis at presentation. 9. Pseudohyponatremia. 10. Hyperkalemia. PLAN: He has received appropriate measures including aggressive volume resuscitation. The serum potassium is down to 4.5. He will remain on the IV insulin drip and to be continued per protocol. He will be ultimately transitioned off IV insulin for now, we will continue monitoring electrolytes closely and replace them as necessary. Aspiration precautions will be maintained. He is on GI prophylaxis as well as DVT prophylaxis. We will discontinue Levaquin. I will get a CRP level, procalcitonin level and if those are insignificant, I will discontinue the Levaquin and follow clinically. I do not see a true pneumonia or evidence of urinary tract infection. Flu and pneumonia vaccination will be addressed per protocol. Thank you very much for the consult. He is critically ill, on life-sustaining interventions including the IV insulin therapy, at very high risk of from endocrine system decompensation as well as renal system decompensation. At this time, I spent about 35 minutes of critical care time without overlap and excluding any procedural time that may be necessary. TID: [id number] RECEIPT: [id number] LORI/KRISTEN
[2021-10-17] MEDS: MORPHINE 2 MG/1 ML INJ IV PRN ×3 (01:34→13:41)
[2021-10-17 05:18] LABS: Hemoglobin 9.3 gm/dl (11.8-15.2); Mean Corpuscular HGB Conc 34 % (32-34); Mean Corpuscular Volume 93 fl (84-94); Platelet Count 152 K/mm3 (140-440); Red Blood Count 2.91 M/mm3 (3.65-5.03); Red Cell Distribution Width 14.5 % (13.2-15.2)
[2021-10-17] MEDS: HEPARIN 5,000 UNIT/1 ML VIAL SUB-Q SCH ×3 (05:19→21:47)
[2021-10-17 05:41] LABS: Calcium 8.5 mg/dL (8.4-10.2)
[2021-10-17] MEDS: HYDROcodone/ACETAMINOPHEN 5-325 MG TAB PO PRN ×3 (06:11→23:19)
[2021-10-17] MEDS: DOLUTEGRAVIR 50 MG TAB PO SCH (08:59)
[2021-10-17] MEDS: DOCUSATE SODIUM 100 MG CAP PO SCH ×2 (08:59→21:47)
[2021-10-17] MEDS: FAMOTIDINE 10 MG TAB PO SCH ×2 (08:59→21:44)
[2021-10-17] MEDS: amLODIPine 10 MG TAB PO SCH (08:59)
[2021-10-17] MEDS: PHOS-NAK POWDER PACKET PO SCH ×3 (09:00→21:44)
[2021-10-17] MEDS: LOSARTAN 50 MG TAB PO SCH (09:00)
[2021-10-17] MEDS: INSULIN REGULAR, HUMAN 100 UNITS/1 ML SUB-Q SCH ×4 (09:01→21:49)
[2021-10-17] MEDS ORDERED: SODIUM PHOSPHATE 30 MMOL in SODIUM CHLORIDE 0.9% 500 ML 500 ML IV ONE (10:00)
[2021-10-17] MEDS: FLUTICASONE PROPIONATE NASAL SPRAY 16 GM NS SCH (10:17)
[2021-10-17] MEDS: ABACAVIR 300 MG TAB PO SCH (10:33)
--- NOTE | 2021-10-17 13:33 | Progress Note ---
Assessment and Plan 1. Acute kidney injury: Vasomotor TOMAS superimposed on CKD in the setting of DKA / volume depletion. Renal US showed R kidney stone and ?mild R hydro. Urine studies ordered. IV fluids. Monitor renal function. Creatinine level is improving. Avoid nephrotoxic agents. Meds dosage based on GFR. 2. FEN: Hyperkalemia, improved, monitor. Pseudohyponatremia, monitor. Replete lytes. Monitor lytes and volume status. 3. DKA: Improving. Per protocol. Monitor. 4. Covid-19 PUI: Test pending. Monitor. 5. History of CVA with residual R hemiparesis: Supportive care. 6. HIV: Continue home meds. 7. H/o Hypertension: Monitor BP. Subjective: Patient was seen and examined at the bedside. Examination: General appearance: well-developed, appears stated age, no distress HEENT: atraumatic, GASPER Neck: trachea midline Respiratory: ctab Heart: S1S2, regular, no murmur Abdomen: obese, soft, bowel sounds heard, NT Integumentary: no obvious rash noted Neurologic: alert, conversing, R hemiparesis, aphasia Ext: no edema noted Subjective Date of service: 10/17/21 Objective - Vital Signs Vital signs: Vital Signs - 12hr 10/17/21 10/17/21 10/17/21 03:45 04:00 08:00 Temperature 98.8 F Pulse Rate 84 Pulse Rate [ 70 From Monitor] Respiratory 18 16 Rate Respiratory Rate [ Generalized] Blood Pressure 134/81 O2 Sat by Pulse 93 95 98 Oximetry 10/17/21 10/17/21 09:00 10:00 Temperature Pulse Rate 84 Pulse Rate [ From Monitor] Respiratory 22 Rate Respiratory 20 Rate [ Generalized] Blood Pressure O2 Sat by Pulse Oximetry - Lab 10/17/21 05:07 10/17/21 05:07 Most recent lab results Calcium 8.5 mg/dL (8.4-10.2) 10/17/21 05:07 Phosphorus 2.30 mg/dL (2.5-4.5) L 10/17/21 05:07 Magnesium 1.80 mg/dL (1.7-2.3) 10/17/21 05:07 Medications & Allergies - Medications Allergies/Adverse Reactions: Allergies Penicillins Allergy (Verified 10/17/21 08:28) Hives Home Medications: Home Medications Medication Instructions Recorded Confirmed Last Taken Type Triumeq 600-50-300 mg Tablet 600 mg PO DAILY 05/10/20 10/16/21 Unknown History amLODIPine 10 mg PO DAILY #30 tablet 05/13/20 10/16/21 Unknown Rx Albuterol Mdi (or & Nicu Only) 2 puff IH QID PRN 10/17/21 10/17/21 Unknown History [ProAir HFA Inhaler] AtorvaSTATin [Lipitor] 20 mg PO QHS 10/17/21 10/17/21 Unknown History Cholecalciferol (Vitamin D3) 50,000 unit PO CONT 10/17/21 10/17/21 Unknown History [Vitamin D3 50,000UNIT CAP] HYDROcodone/APAP 10-325 [[place] 1 tab PO Q6HR PRN 10/17/21 10/17/21 Unknown History 10/325] Losartan [Cozaar] 50 mg PO QDAY 10/17/21 10/17/21 Unknown History Active Medications: Generic Name Dose Route Start Last Admin Trade Name Hebertq PRN Reason Stop Dose Admin Abacavir Sulfate 600 mg 10/16/21 10:00 10/17/21 10:33 Abacavir 300 Mg Tab PO 600 mg DAILY JOSE Administration Acetaminophen 650 mg 10/15/21 00:03 Acetaminophen 325 Mg Tab PO Q6H PRN Pain MILD(1-3)/Fever >100.5/DELANEY Hydrocodone Bitart/Acetaminophen 1 each 10/16/21 14:00 10/17/21 06:11 Hydrocodone/Acetaminophen 5-325 Mg Tab PO 1 each Q6H PRN Administration Pain, Moderate (4-6) Amlodipine Besylate 10 mg 10/17/21 10:00 10/17/21 08:59 Amlodipine 10 Mg Tab PO 10 mg DAILY JOSE Administration Atorvastatin Calcium 20 mg 10/15/21 22:00 10/16/21 21:32 Atorvastatin 20 Mg Tab PO 20 mg QHS JOSE Administration Dextrose 0 ml 10/16/21 08:30 Dextrose 10% *Hypoglycemia IV PRN PRN Hypoglycemia Docusate Sodium 100 mg 10/15/21 14:00 10/17/21 08:59 Docusate Sodium 100 Mg Cap PO 100 mg BID JOSE Administration Dolutegravir Sodium 50 mg 10/16/21 10:00 10/17/21 08:59 Dolutegravir 50 Mg Tab PO 50 mg DAILY JOSE Administration Famotidine 10 mg 10/15/21 22:00 10/17/21 08:59 Famotidine 10 Mg Tab PO 10 mg BID JOSE Administration Fluticasone Propionate 100 mcg 10/15/21 15:00 10/16/21 09:20 Fluticasone Propionate Nasal [place] 16 Gm NS 100 mcg QDAY JOSE Administration Heparin Sodium (Porcine) 5,000 unit 10/15/21 14:00 10/17/21 05:19 Heparin 5,000 Unit/1 Ml Vial SUB-Q 5,000 unit Q8HR JOSE Administration Sodium Phosphate 30 mmol/ 510 mls @ 125 mls/hr 10/17/21 10:00 10/17/21 10:32 Sodium Chloride IV 10/17/21 14:04 125 mls/hr ONCE ONE Administration Insulin Glargine 30 units 10/16/21 22:00 10/16/21 21:39 Insulin Glargine 100 Units/Ml SUB-Q 30 units QHS JOSE Administration Insulin Human Regular 0 units 10/16/21 11:30 10/17/21 09:01 Insulin Regular, Human 100 Units/1 Ml SUB-Q 6 units ACHS JOSE Administration Protocol Lamivudine 300 mg 10/16/21 10:00 10/17/21 08:59 Lamivudine 150 Mg Tab PO 300 mg DAILY JOSE Administration Losartan Potassium 50 mg 10/17/21 10:00 10/17/21 09:00 Losartan 50 Mg Tab PO 50 mg QDAY JOSE Administration Morphine Sulfate 2 mg 10/15/21 00:03 10/17/21 09:00 Morphine 2 Mg/1 Ml Inj IV 2 mg Q4H PRN Administration Pain , Severe (7-10) Potassium Phos/Sodium Phos 2 each 10/17/21 09:00 10/17/21 09:00 Phos-Nak Powder Packet PO 10/17/21 22:01 2 each Q8HR JOSE Administration Senna 8.8 mg 10/15/21 22:00 10/16/21 21:45 Sennosides Oral Liqd 8.8 Mg/5 Ml Oral Liqd PO Not Given QHS JOSE Sodium Chloride 10 ml 10/15/21 10:00 10/17/21 09:02 Sodium Chloride 0.9% 10 Ml Flush Syringe IV 10 ml BID JOSE Administration Sodium Chloride 10 ml 10/15/21 00:03 Sodium Chloride 0.9% 10 Ml Flush Syringe IV PRN PRN LINE FLUSH
--- NOTE | 2021-10-17 14:24 | Progress Note ---
Assessment and Plan Assessment and plan: #Dry gangrene of right fifth toe -Arterial ultrasound of the right lower extremity ordered -General surgery consulted, assistance appreciated -Will need to follow-up in wound care clinic outpatient for further surgical intervention #Type 2 diabetes, uncontrolled -Improving -A1c 13.7% -Patient not on any outpatient regimen; will prefer oral agents over insulin -Continue Lantus 30 units nightly plus SSI while inpatient #Acute kidney injury #Right hydronephrosis #Metabolic acidosis -SCr 5 -> 1.7; likely secondary to volume depletion vs vasomotor nephropathy -Renal ultrasound showed borderline right-sided hydronephrosis -CT abdomen pelvis pending to further assess hydronephrosis -Anion gap closed -Avoid nephrotoxic agents, hypotension; renally adjust meds -Nephrology following, assistance appreciated #Hypophosphatemia -will replete and monitor #History of CVA #Right hemiparesis-stable -Continue atorvastatin #HIV -Continue Ziagen, Tivicay and Epivir Resolved issues #Hyperkalemia #Diabetic ketoacidosis History Interval history: Neck events overnight. Patient reporting toe pain in the right foot. He has been following outpatient with podiatry. He noticed that his toe began to turn black after it being stepped on last month. Has no other complaints at this time. Hospitalist Physical - Physical exam Narrative exam: GENERAL: Well-developed well-nourished. In no acute distress. HEENT: Normocephalic. Atraumatic. CHEST/LUNGS: CTAB on room air HEART/CARDIOVASCULAR: RRR. No murmur, rubs or gallops appreciated. ABDOMEN: +BS. NT/ND. SKIN: No rashes noted. NEURO: No focal motor deficit. Follows all commands and is ambulatory. MUSCULOSKELETAL: No joint effusion EXTREMITIES: Dry gangrene of 5th digit of R foot. No clubbing or edema noted. PSYCH: Cooperative. - Constitutional Vitals: Temp Pulse Resp BP Pulse Ox 98.8 F 84 20 134/81 98 10/17/21 03:45 10/17/21 10:00 10/17/21 13:41 10/17/21 03:45 10/17/21 08:00 General appearance: Present: no acute distress, well-nourished Results - Labs CBC & Chem 7: 10/17/21 05:07 10/17/21 05:07 Labs: Laboratory Last Values WBC 5.8 K/mm3 (4.5-11.0) 10/17/21 05:07 RBC 2.91 M/mm3 (3.65-5.03) L 10/17/21 05:07 Hgb 9.3 gm/dl (11.8-15.2) L 10/17/21 05:07 Hct 27.0 % (35.5-45.6) L 10/17/21 05:07 MCV 93 fl (84-94) 10/17/21 05:07 MCH 32 pg (28-32) 10/17/21 05:07 MCHC 34 % (32-34) 10/17/21 05:07 RDW 14.5 % (13.2-15.2) 10/17/21 05:07 Plt Count 152 K/mm3 (140-440) 10/17/21 05:07 Add Manual Diff Complete 10/14/21 18:28 Total Counted 100 10/14/21 18:28 Seg Neutrophils % Vulcanizer 10/14/21 18:28 Seg Neuts % (Manual) 94.0 % (40.0-70.0) H 10/14/21 18:28 Band Neutrophils % 0 % 10/14/21 18:28 Lymphocytes % (Manual) 1.0 % (13.4-35.0) L 10/14/21 18:28 Reactive Lymphs % (Man) 0 % 10/14/21 18:28 Monocytes % (Manual) 5.0 % (0.0-7.3) 10/14/21 18:28 Eosinophils % (Manual) 0 % (0.0-4.3) 10/14/21 18:28 Basophils % (Manual) 0 % (0.0-1.8) 10/14/21 18:28 Metamyelocytes % 0 % 10/14/21 18:28 Myelocytes % 0 % 10/14/21 18:28 Promyelocytes % 0 % 10/14/21 18:28 Blast Cells % 0 % 10/14/21 18:28 Nucleated RBC % Not Reportable 10/14/21 18:28 Seg Neutrophils # Man 10.6 K/mm3 (1.8-7.7) H 10/14/21 18:28 Band Neutrophils # 0.0 K/mm3 10/14/21 18:28 Lymphocytes # (Manual) 0.1 K/mm3 (1.2-5.4) L 10/14/21 18:28 Abs React Lymphs (Man) 0.0 K/mm3 10/14/21 18:28 Monocytes # (Manual) 0.6 K/mm3 (0.0-0.8) 10/14/21 18:28 Eosinophils # (Manual) 0.0 K/mm3 (0.0-0.4) 10/14/21 18:28 Basophils # (Manual) 0.0 K/mm3 (0.0-0.1) 10/14/21 18:28 Metamyelocytes # 0.0 K/mm3 10/14/21 18:28 Myelocytes # 0.0 K/mm3 10/14/21 18:28 Promyelocytes # 0.0 K/mm3 10/14/21 18:28 Blast Cells # 0.0 K/mm3 10/14/21 18:28 WBC Morphology Not Reportable 10/14/21 18:28 Hypersegmented Neuts Not Reportable 10/14/21 18:28 Hyposegmented Neuts Not Reportable 10/14/21 18:28 Hypogranular Neuts Not Reportable 10/14/21 18:28 Smudge Cells Not Reportable 10/14/21 18:28 Toxic Granulation Not Reportable 10/14/21 18:28 Toxic Vacuolation Few 10/14/21 18:28 Dohle Bodies Not Reportable 10/14/21 18:28 Pelger-Huet Anomaly Not Reportable 10/14/21 18:28 Joie Rods Not Reportable 10/14/21 18:28 Platelet Estimate Consistent w auto 10/14/21 18:28 Clumped Platelets 2+ 10/14/21 18:28 Plt Clumps, EDTA Not Reportable 10/14/21 18:28 Large Platelets Not Reportable 10/14/21 18:28 Giant Platelets Not Reportable 10/14/21 18:28 Platelet Satelliting Not Reportable 10/14/21 18:28 Plt Morphology Comment Not Reportable 10/14/21 18:28 RBC Morphology Not Reportable 10/14/21 18:28 Dimorphic RBCs Not Reportable 10/14/21 18:28 Polychromasia Not Reportable 10/14/21 18:28 Hypochromasia Not Reportable 10/14/21 18:28 Poikilocytosis Not Reportable 10/14/21 18:28 Anisocytosis Not Reportable 10/14/21 18:28 Microcytosis Not Reportable 10/14/21 18:28 Macrocytosis Not Reportable 10/14/21 18:28 Spherocytes Not Reportable 10/14/21 18:28 Pappenheimer Bodies Not Reportable 10/14/21 18:28 Sickle Cells Not Reportable 10/14/21 18:28 Target Cells Not Reportable 10/14/21 18:28 Tear Drop Cells Not Reportable 10/14/21 18:28 Ovalocytes Not Reportable 10/14/21 18:28 Helmet Cells Not Reportable 10/14/21 18:28 [place] Bodies Not Reportable 10/14/21 18:28 [place] Rings Not Reportable 10/14/21 18:28 [place] Cells Not Reportable 10/14/21 18:28 Bite Cells Not Reportable 10/14/21 18:28 Crenated Cell Not Reportable 10/14/21 18:28 Elliptocytes Not Reportable 10/14/21 18:28 Acanthocytes (Spur) Not Reportable 10/14/21 18:28 Rouleaux Not Reportable 10/14/21 18:28 Hemoglobin C Crystals Not Reportable 10/14/21 18:28 Schistocytes Not Reportable 10/14/21 18:28 Malaria parasites Not Reportable 10/14/21 18:28 [place]hael Bodies Not Reportable 10/14/21 18:28 Hem Pathologist Commnt No 10/14/21 18:28 VBG pH 7.129 (7.320-7.420) L* 10/14/21 18:28 Sodium 135 mmol/L (137-145) L 10/17/21 05:07 Potassium 3.9 mmol/L (3.6-5.0) 10/17/21 05:07 Chloride 106.6 mmol/L (98-107) 10/17/21 05:07 Carbon Dioxide 19 mmol/L (22-30) L 10/17/21 05:07 Anion Gap 13 mmol/L 10/17/21 05:07 BUN 25 mg/dL (9-20) H 10/17/21 05:07 Creatinine 1.7 mg/dL (0.8-1.3) H 10/17/21 05:07 Estimated GFR 51 ml/min 10/17/21 05:07 BUN/Creatinine Ratio 15 % 10/17/21 05:07 Glucose 314 mg/dL (75-100) H 10/17/21 05:07 POC Glucose 186 mg/dL (70-105) H 10/17/21 12:04 Hemoglobin A1c 13.7 % (4-6) H 10/17/21 10:01 Calcium 8.5 mg/dL (8.4-10.2) 10/17/21 05:07 Phosphorus 2.30 mg/dL (2.5-4.5) L 10/17/21 05:07 Magnesium 1.80 mg/dL (1.7-2.3) 10/17/21 05:07 Total Bilirubin 0.20 mg/dL (0.1-1.2) 10/14/21 18:09 Direct Bilirubin < 0.2 mg/dL (0-0.2) 10/14/21 18:09 Indirect Bilirubin 0.0 mg/dL 10/14/21 18:09 AST 7 units/L (5-40) 10/14/21 18:09 ALT 13 units/L (7-56) 10/14/21 18:09 Alkaline Phosphatase 143 units/L (35-129) H 10/14/21 18:09 C-Reactive Protein 5.10 mg/dL (0.00-1.30) H 10/15/21 17:52 Total Protein 7.5 g/dL (6.3-8.2) 10/14/21 18:09 Albumin 4.8 g/dL (3.9-5) 10/14/21 18:09 Albumin/Globulin Ratio 1.8 % 10/14/21 18:09 Procalcitonin 0.29 ng/mL (<0.15) 10/15/21 17:52 Urine Color Yellow (Yellow) 10/15/21 Unknown Urine Turbidity Cloudy (Clear) 10/15/21 Unknown Urine pH 5.0 (5.0-7.0) 10/15/21 Unknown Ur Specific [place] 1.015 (1.003-1.030) 10/15/21 Unknown Urine Protein 30 mg/dl mg/dL (Negative) 10/15/21 Unknown Urine Glucose (UA) 50 mg/dL (Negative) 10/15/21 Unknown Urine Ketones Neg mg/dL (Negative) 10/15/21 Unknown Urine Blood Lg (Negative) 10/15/21 Unknown Urine Nitrite Neg (Negative) 10/15/21 Unknown Urine Bilirubin Neg (Negative) 10/15/21 Unknown Urine Urobilinogen < 2.0 mg/dL (<2.0) 10/15/21 Unknown Ur Leukocyte Esterase Neg (Negative) 10/15/21 Unknown Urine WBC (Auto) 5.0 /HPF (0.0-6.0) 10/15/21 Unknown Urine RBC (Auto) 2.0 /HPF (0.0-6.0) 10/15/21 Unknown Urine Bacteria (Auto) 1+ /HPF (Negative) 10/15/21 Unknown Uric Acid Crystals 3+ 10/15/21 Unknown Urine Mucus Few /HPF 10/15/21 Unknown Urine Yeast (Budding) Few /HPF 10/15/21 Unknown Coronavirus (PCR) Negative (Negative) 10/16/21 08:20 Microbiology: Microbiology 10/14/21 19:57 Peripheral/Venous Blood Culture - Preliminary NO GROWTH AFTER 48 HOURS 10/14/21 19:52 Peripheral/Venous Blood Culture - Preliminary NO GROWTH AFTER 48 HOURS [place]/IV: Voiding Method Condom Catheter Active Medications - Current Medications Current Medications: Generic Name Dose Route Start Last Admin Trade Name Freq PRN Reason Stop Dose Admin Abacavir Sulfate 600 mg 10/16/21 10:00 10/17/21 10:33 Abacavir 300 Mg Tab PO 600 mg DAILY JOSE Administration Acetaminophen 650 mg 10/15/21 00:03 Acetaminophen 325 Mg Tab PO Q6H PRN Pain MILD(1-3)/Fever >100.5/DELANEY Hydrocodone Bitart/Acetaminophen 1 each 10/16/21 14:00 10/17/21 06:11 Hydrocodone/Acetaminophen 5-325 Mg Tab PO 1 each Q6H PRN Administration Pain, Moderate (4-6) Amlodipine Besylate 10 mg 10/17/21 10:00 10/17/21 08:59 Amlodipine 10 Mg Tab PO 10 mg DAILY JOSE Administration Atorvastatin Calcium 20 mg 10/15/21 22:00 10/16/21 21:32 Atorvastatin 20 Mg Tab PO 20 mg QHS JOSE Administration Dextrose 0 ml 10/16/21 08:30 Dextrose 10% *Hypoglycemia IV PRN PRN Hypoglycemia Docusate Sodium 100 mg 10/15/21 14:00 10/17/21 08:59 Docusate Sodium 100 Mg Cap PO 100 mg BID JOSE Administration Dolutegravir Sodium 50 mg 10/16/21 10:00 10/17/21 08:59 Dolutegravir 50 Mg Tab PO 50 mg DAILY JOSE Administration Famotidine 10 mg 10/15/21 22:00 10/17/21 08:59 Famotidine 10 Mg Tab PO 10 mg BID JOSE Administration Fluticasone Propionate 100 mcg 10/15/21 15:00 10/16/21 09:20 Fluticasone Propionate Nasal [place] 16 Gm NS 100 mcg QDAY JOSE Administration Heparin Sodium (Porcine) 5,000 unit 10/15/21 14:00 10/17/21 05:19 Heparin 5,000 Unit/1 Ml Vial SUB-Q 5,000 unit Q8HR JOSE Administration Insulin Glargine 30 units 10/16/21 22:00 10/16/21 21:39 Insulin Glargine 100 Units/Ml SUB-Q 30 units QHS JOSE Administration Insulin Human Regular 0 units 10/16/21 11:30 10/17/21 13:42 Insulin Regular, Human 100 Units/1 Ml SUB-Q 3 units ACHS JOSE Administration Protocol Lamivudine 300 mg 10/16/21 10:00 10/17/21 08:59 Lamivudine 150 Mg Tab PO 300 mg DAILY JOSE Administration Losartan Potassium 50 mg 10/17/21 10:00 10/17/21 09:00 Losartan 50 Mg Tab PO 50 mg QDAY JOSE Administration Morphine Sulfate 2 mg 10/15/21 00:03 10/17/21 13:41 Morphine 2 Mg/1 Ml Inj IV 2 mg Q4H PRN Administration Pain , Severe (7-10) Potassium Phos/Sodium Phos 2 each 10/17/21 09:00 10/17/21 09:00 Phos-Nak Powder Packet PO 10/17/21 22:01 2 each Q8HR JOSE Administration Senna 8.8 mg 10/15/21 22:00 10/16/21 21:45 Sennosides Oral Liqd 8.8 Mg/5 Ml Oral Liqd PO Not Given QHS JOSE Sodium Chloride 10 ml 10/15/21 10:00 10/17/21 09:02 Sodium Chloride 0.9% 10 Ml Flush Syringe IV 10 ml BID JOSE Administration Sodium Chloride 10 ml 10/15/21 00:03 Sodium Chloride 0.9% 10 Ml Flush Syringe IV PRN PRN LINE FLUSH Nutrition/Malnutrition Assess - Dietary Evaluation Nutrition/Malnutrition Findings: Nutrition Notes Start: 10/15/21 12:27 Freq: Status: Active Protocol: Document 10/16/21 11:36 KENDY (Rec: 10/16/21 12:14 KENDY [id number]) Nutrition Notes 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 Current Diet Consistent carbohydrates ( since B 10/16). Labs/Tests 10/16: K 3.5, Cl 110.5, CO2 20 , BUN 29, Crea 1.8, Glu 128. Pertinent Medications 10/16: KCl 40 mEq PO, others nutritionally unremarkable. 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 No body weight change reported in 1 day. Weight Status Appropriate Subjective/Other Information RD consult for New Onset Diabetes. No reports available on Pt's PO intake of meals at the time . Pt has missing teeth, according to Physical Assessment History notes. Pt has hemiparesis secondary to CVA X3, according to [facility] & Physical notes. Pt has known Hx of borderline T2DM, with no medications, according to Progress notes. Pt still on high risk, not a candidate for Nutrition Education at the time, will assess feasibility on F/U. Percent of energy/protein needs met: Prescribed Consistent Carbohydrates Diet provides for energy/protein needs (2, 061 Kcal/91 g) during LOS. Burn Absent Trauma Absent GI Symptoms None Food Allergy No Skin Integrity/Comment Clear, warm dry. Minimum of two criteria No #1 Nutrition Diagnosis Food and nutrition-related knowledge deficit Etiology Pt has uncontroled Diabetes- New Onset Diabetes. As Evidenced by Signs and Symptoms Pt BG 1,550 mg/dL at admission , DKA dignosis. Is patient on ventilator? No Is Patient Ambulatory and/or Out of Bed Yes REE-(Emery-St. Jeor-ambulatory/OOB) [ 2036.100 [id number]] Kcal/Kg value to use for calculation 20 Approximate Energy Requirements Using 1452 kcal/Kg Calculation Used for Recommendations Kcal/kg Additional Notes Protein: 0.8-1.2 g/Kg; 58-88 g /day. Fluids: 1 ml/Kcal, or as per MD. Nutrition Intervention Change Diet Order: Continue Consistent Carbohydrates Diet. Education Handouts Provided AND: MyPlate For Meal Planning , Using Nutrition Labels: Carbohydrate, and Metabolic Syndrome Menu. Goal #1 During LOS, provide Pt with nutrition education to foster behavioral changes towards a healthy lifestyle. Follow-Up By: 10/23/21 Additional Comments Nutrition education will be provided on F/U, if feasible. Continue monitoring food tolerance, %PO intake of meals , and BM.
--- NOTE | 2021-10-17 15:01 | Consultation ---
History of Present Illness Consult date: 10/17/21 Reason for consult: other (toe wound) Chief complaint: right pinky toe pain - History of present illness History of present illness: 56 yo M with hx of HIV, CVA with right hemiparesis, hyperlipidemia, hyp ertension, DM, tobacco use who presented to ER with AMS and found to be hyperglycemic. Blood glucose was >600, HbA1c 13. Patient was admitted and treated. He also c/o trauma to right pinky toe about 1 month go. He injured it when he lost his balance on the stairs. He states it turned black and is pa inful. No drainage, redness. Pain is worse with movement and palpation. Surgery is consulted for evaluation of toe. Past History Past Medical History: HIV/AIDS, seizures, stroke (2003, RUE deficit, LLE deficit)) Past Surgical History: Other ( R foot sx 02/2020) Social history: smoking (Former smoker) Family history: no significant family history Medications and Allergies Allergies Allergy/AdvReac Type Severity Reaction Status Date / Time Penicillins Allergy Hives Verified 10/17/21 08:28 Home Medications Medication Instructions Recorded Confirmed Last Taken Type Triumeq 600-50-300 mg Tablet 600 mg PO DAILY 05/10/20 10/16/21 Unknown History amLODIPine 10 mg PO DAILY #30 tablet 05/13/20 10/16/21 Unknown Rx Albuterol Mdi (or & Nicu Only) 2 puff IH QID PRN 10/17/21 10/17/21 Unknown Hist ory [ProAir HFA Inhaler] AtorvaSTATin [Lipitor] 20 mg PO QHS 10/17/21 10/17/21 Unknown History Cholecalciferol (Vitamin D3) 50,000 unit PO CONT 10/17/21 10/17/21 Unknown History [Vitamin D3 50,000UNIT CAP] HYDROcodone/APAP 10-325 [[place] 1 tab PO Q6HR PRN 10/17/21 10/17/21 Unknown H istory 10/325] Losartan [Cozaar] 50 mg PO QDAY 10/17/21 10/17/21 Unknown History Active Meds: Active Medications Abacavir Sulfate (Abacavir 300 Mg Tab) 600 mg PO DAILY JOSE Last Admin: 10/17/21 10:33 Dose: 600 mg Acetaminophen (Acetaminophen 325 Mg Tab) 650 mg PO Q6H PRN PRN Reason: Pain MILD(1-3)/Fever >100.5/DELANEY Hydrocodone Bitart/Acetaminophen (Hydrocodone/Acetaminophen 5-325 Mg Tab) 1 each PO Q6H PRN PRN Reason: Pain, Moderate (4-6) Last Admin: 10/17/21 06:11 Dose: 1 each Amlodipine Besylate (Amlodipine 10 Mg Tab) 10 mg PO DAILY [facility] Last Admin: 10/17/21 08:59 Dose: 10 mg Atorvastatin Calcium (Atorvastatin 20 Mg Tab) 20 mg PO QHS [facility] Last Admin: 10/16/21 21:32 Dose: 20 mg Dextrose (Dextrose 10% *Hypoglycemia) 0 ml IV PRN PRN PRN Reason: Hypoglycemia Docusate Sodium (Docusate Sodium 100 Mg Cap) 100 mg PO BID [facility] Last Admin: 10/17/21 08:59 Dose: 100 mg Dolutegravir Sodium (Dolutegravir 50 Mg Tab) 50 mg PO DAILY [facility] Last Admin: 10/17/21 08:59 Dose: 50 mg Famotidine (Famotidine 10 Mg Tab) 10 mg PO BID [facility] Last Admin: 10/17/21 08:59 Dose: 10 mg Fluticasone Propionate (Fluticasone Propionate Nasal [place] 16 Gm) 100 mcg NS QDAY [facility] Last Admin: 10/16/21 09:20 Dose: 100 mcg Heparin Sodium (Porcine) (Heparin 5,000 Unit/1 Ml Vial) 5,000 unit SUB-Q Q8HR [facility] Last Admin: 10/17/21 05:19 Dose: 5,000 unit Insulin Glargine (Insulin Glargine 100 Units/Ml) 30 units SUB-Q QHS [facility] Last Admin: 10/16/21 21:39 Dose: 30 units Insulin Human Regular (Insulin Regular, Human 100 Units/1 Ml) 0 units SUB-Q [facility]; Protocol Last Admin: 10/17/21 13:42 Dose: 3 units Lamivudine (Lamivudine 150 Mg Tab) 300 mg PO DAILY [facility] Last Admin: 10/17/21 08:59 Dose: 300 mg Losartan Potassium (Losartan 50 Mg Tab) 50 mg PO QDAY [facility] Last Admin: 10/17/21 09:00 Dose: 50 mg Morphine Sulfate (Morphine 2 Mg/1 Ml Inj) 2 mg IV Q4H PRN PRN Reason: Pain , Severe (7-10) Last Admin: 10/17/21 13:41 Dose: 2 mg Potassium Phos/Sodium Phos (Phos-Nak Powder Packet) 2 each PO Q8HR [facility] Stop: 10/17/21 22:01 Last Admin: 10/17/21 09:00 Dose: 2 each Senna (Sennosides Oral Liqd 8.8 Mg/5 Ml Oral Liqd) 8.8 mg PO QHS [facility] Last Admin: 10/16/21 21:45 Dose: Not Given Sodium Chloride (Sodium Chloride 0.9% 10 Ml Flush Syringe) 10 ml IV BID [facility] Last Admin: 10/17/21 09:02 Dose: 10 ml Sodium Chloride (Sodium Chloride 0.9% 10 Ml Flush Syringe) 10 ml IV PRN PRN PRN Reason: LINE FLUSH Review of Systems All systems: negative (10 pt ROS performed and negative except for that listed in HPI) Exam Vital Signs Temp Pulse Resp BP Pulse Ox 98.1 F 81 16 145/77 100 10/14/21 17:42 10/14/21 17:42 10/14/21 17:42 10/14/21 17:42 10/14/21 17:42 Narrative exam: Gen: AAOx3. NAD CV: S1, S2+ Resp: even and unlabored Ext: B/L LE warm. Cannot palpate distal pulses. no c/c/e. Dry gangrene of right pinky toe. NO erythema, drainage. Mild TTP. Results - Labs 10/17/21 05:07 10/17/21 05:07 Abnormal lab results 10/16/21 10/17/21 10/17/21 Range/Units 16:21 00:30 05:07 RBC 2.91 L (3.65-5.03) M/mm3 Hgb 9.3 L (11.8-15.2) gm/dl Hct 27.0 L (35.5-45.6) % Sodium (137-145) mmol/L Carbon Dioxide (22-30) mmol/L BUN (9-20) mg/dL Creatinine (0.8-1.3) mg/dL Glucose (75-100) mg/dL POC Glucose 213 H 226 H (70-105) mg/dL Hemoglobin A1c (4-6) % Phosphorus (2.5-4.5) mg/dL 02/01/0210/17/21 10/17/21 Range/Units 05:07 07:54 10:01 RBC (3.65-5.03) M/mm3 Hgb (11.8-15.2) gm/dl Hct (35.5-45.6) % Sodium 135 L (137-145) mmol/L Carbon Dioxide 19 L (22-30) mmol/L BUN 25 H (9-20) mg/dL Creatinine 1.7 H (0.8-1.3) mg/dL Glucose 314 H (75-100) mg/dL POC Glucose 272 H (70-105) mg/dL Hemoglobin A1c 13.7 H (4-6) % Phosphorus 2.30 L (2.5-4.5) mg/dL 10/17/21 Range/Units 12:04 RBC (3.65-5.03) M/mm3 Hgb (11.8-15.2) gm/dl Hct (35.5-45.6) % Sodium (137-145) mmol/L Carbon Dioxide (22-30) mmol/L BUN (9-20) mg/dL Creatinine (0.8-1.3) mg/dL Glucose (75-100) mg/dL POC Glucose 186 H (70-105) mg/dL Hemoglobin A1c (4-6) % Phosphorus (2.5-4.5) mg/dL Diabetes panel 10/17/21 10/17/21 Range/Units 05:07 10:01 Sodium 135 L (137-145) mmol/L Potassium 3.9 (3.6-5.0) mmol/L Chloride 106.6 (98-107) mmol/L Carbon Dioxide 19 L (22-30) mmol/L BUN 25 H (9-20) mg/dL Creatinine 1.7 H (0.8-1.3) mg/dL Glucose 314 H (75-100) mg/dL Hemoglobin A1c 13.7 H (4-6) % Calcium 8.5 (8.4-10.2) mg/dL Calcium panel 10/17/21 Range/Units 05:07 Calcium 8.5 (8.4-10.2) mg/dL Phosphorus 2.30 L (2.5-4.5) mg/dL Pituitary panel 10/17/21 Range/Units 05:07 Sodium 135 L (137-145) mmol/L Potassium 3.9 (3.6-5.0) mmol/L Chloride 106.6 (98-107) mmol/L Carbon Dioxide 19 L (22-30) mmol/L BUN 25 H (9-20) mg/dL Creatinine 1.7 H (0.8-1.3) mg/dL Glucose 314 H (75-100) mg/dL Calcium 8.5 (8.4-10.2) mg/dL Adrenal panel 10/17/21 Range/Units 05:07 Sodium 135 L (137-145) mmol/L Potassium 3.9 (3.6-5.0) mmol/L Chloride 106.6 (98-107) mmol/L Carbon Dioxide 19 L (22-30) mmol/L BUN 25 H (9-20) mg/dL Creatinine 1.7 H (0.8-1.3) mg/dL Glucose 314 H (75-100) mg/dL Calcium 8.5 (8.4-10.2) mg/dL - Imaging Additional studies: XRAY R FOOT Assessment and Plan 56 yo M with dry gangrene right pinky toe XRAY R foot - no acute abnormality. Plan; 1. obtain art u/s of RLE 2. prn pain control 3. PT evaluation 4. strict glucose control 5. Likely will need evaluation for amputation of right pinky toe. If patient is medically cleared for dc, this can be arranged in outpatient setting. Patient may follow up in wound clinic. D/W Dr. Astudillo. Thank you, please call with questions.
--- NOTE | 2021-10-17 15:27 | Cat Scan Report ---
CT abdomen pelvis wo con INDICATION: R hydronephrosis.. COMPARISON: Ultrasound kidneys 10/16/2019 TECHNIQUE: Abdominal and pelvic CT exam performed. All CT scans at this location are performed using CT dose reduction for ALARA by means of automated exposure control. FINDINGS: CT ABDOMEN and PELVIS: Lung Bases: Small pleural effusions. Debris is seen within the distal esophagus. Liver: No significant abnormality. Biliary: No significant abnormality. Spleen: No significant abnormality. Pancreas: No significant abnormality. Adrenals: No significant abnormality. Kidneys: Right extrarenal pelvis. No hydronephrosis.. No stones. Lymphatics: No lymphadenopathy. Vasculature: Mild atherosclerosis. No aneurysm. Bowel: No significant abnormality. Normal appendix. Pelvis: No significant abnormality. Osseous Structures: No aggressive osseous lesion. Additional Findings: None IMPRESSION: 1. No hydronephrosis. No acute abnormality of the abdomen or pelvis. 2. Small pleural effusions. Signer Name: Al Desai MD Signed: 10/17/2021 3:22 PM Workstation Name: [id number]
--- NOTE | 2021-10-17 15:36 | Vascular Lab Report ---
DUPLEX DOPPLER LOWER EXTREMITY ARTERIAL, RIGHT INDICATION / CLINICAL INFORMATION: R pinky toe dry gangrene. TECHNIQUE: Arterial duplex examination of the right lower extremity performed using B-mode, color carlos w and spectral Doppler assessment. COMPARISON: None available. FINDINGS: RIGHT: Common Femoral Artery: PSV 119 cm/sec. Monophasic waveform. Proximal SFA: No evidence of color Doppler blood flow. Mid SFA: No evidence of color Doppler blood flow. Distal SFA: PSV 112 cm/sec. Monophasic waveform. Popliteal artery: PSV 13 cm/sec. Monophasic waveform. Posterior tibial artery: PSV 35 cm/sec. Monophasic waveform. Dorsalis Pedis Artery: PSV 9 cm/sec. Monophasic waveform. ADDITIONAL FINDINGS: No evidence of color Doppler blood flow within the anterior tibial artery. Right MAGUE: Not performed. IMPRESSION: 1. Absence of color Doppler blood flow within the proximal and mid superficial femoral artery and wit hin the anterior tibial artery concerning for occlusion. Abnormal monophasic waveforms in the remaind er of the right lower extremity. CTA of the lower extremities/conventional angiography may be useful for further evaluation given the severity of disease. Ankle-Brachial Index (MAGUE): - Calcified arteries > 1.4 - Normal = 0.9-1.4 - Mild PAD = 0.7-0.89 - Moderate PAD = 0.51-0.69 - Severe PAD < 0.5 Doppler Waveform: - Triphasic is normal. - Biphasic is abnormal if clear transition from triphasic signal along vascular tree. - Monophasic is abnormal. Scribed by: Anisha Miller RDMS, RVT Scribed: 10/17/2021 2:17 PM I have reviewed the images, agree with this report, and edited this report as needed. Signer Name: Rick Prince MD Signed: 10/17/2021 3:25 PM Workstation Name: [email or web address]
--- NOTE | 2021-10-17 18:57 | Progress Note ---
Assessment and Plan 56-year-old male with known history of CVA x3 with right hemiparesis, HIV, hyperlipidemia, hypertension, Seizures, asthma and history of tobacco abuse presents to the emergency room today with hyperglycemia. Patient was brought to the emergency room for changes in mental status and difficulty with speech. Patient states he was diagnosed with diabetes mellitus about 2 months ago but was not started on any medication. He denies any fever or chills, no chest pain or shortness of breath, no nausea vomiting and no abdominal pain. Work-up in the emergency room reveals a sodium level of 118, potassium of 8.8 and glucose of 1555. Patient also had a BUN of 77 and creatinine of 5.0. 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 X-ray of the right foot showed no acute abnormality. Patient had albuterol, calcium gluconate, sodium bicarbonate, insulin and glucose in the emergency room for the hyperkalemia. Patient being admitted with DKA, acute renal failure, hyperkalemia and possible underlying pneumonia. Patient has history of smoking in the past. Patient awake. Patient is on room air. O2 saturation 96%. No acute respiratory distress. Patient afebrile. No leukocytosis. Blood pressure 144/72, Pulse 74, respirations 16 Chest xray 10/14/21 reported Mild airspace opacity and left lung base, may reflect atelectasis or pneumonia Duplex arterial study of right lower extremity 10/17/21 Absence of color Doppler blood flow within the proximal and mid superficial femoral artery and within the anterior tibial artery concerning for occlusion Recommend to consult vascular surgery. Patient presently on S/C Heparin, Famotidine and Flonase and Antivirals for HIV. - Patient Problems (1) Pneumonia Current Visit: Yes Status: Acute Plan to address problem: Patient afebrile. No leukocytosis. If patient become febrile recommend to start on I/V antibiotics. (2) DKA (diabetic ketoacidosis) Current Visit: Yes Status: Acute Plan to address problem: Management as per primary care. (3) Acute renal insufficiency Current Visit: Yes Status: Acute Plan to address problem: Management as per primary and nephrology. (4) Hemiparesis affecting right side as late effect of cerebrovascular accident Current Visit: Yes Status: Acute Plan to address problem: Management as per primary care and nephrology. (5) HIV (human immunodeficiency virus infection) Current Visit: Yes Status: Chronic Plan to address problem: Patient is on Antivirals. Management as per infectious disease specialists. (6) Diabetes mellitus Current Visit: No Status: Chronic Plan to address problem: Management as per primary care. (7) HTN (hypertension) Current Visit: No Status: Chronic Plan to address problem: Management as per primary care. Subjective Date of service: 10/17/21 Interval history: 56-year-old male with known history of CVA x3 with right hemiparesis, HIV, hyperlipidemia, hypertension, Seizures, asthma and history of tobacco abuse presents to the emergency room today with hyperglycemia. Patient was brought to the emergency room for changes in mental status and difficulty with speech. Patient states he was diagnosed with diabetes mellitus about 2 months ago but was not started on any medication. He denies any fever or chills, no chest pain or shortness of breath, no nausea vomiting and no abdominal pain. Work-up in the emergency room reveals a sodium level of 118, potassium of 8.8 and glucose of 1555. Patient also had a BUN of 77 and creatinine of 5.0. 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 X-ray of the right foot showed no acute abnormality. Patient had albuterol, calcium gluconate, sodium bicarbonate, insulin and glucose in the emergency room for the hyperkalemia. Patient being admitted with DKA, acute renal failure, hyperkalemia and possible underlying pneumonia. Patient has history of smoking in the past. Patient awake. Patient is on room air. O2 saturation 96%. No acute respiratory distress. Patient afebrile. No leukocytosis. Blood pressure 144/72, Pulse 74, respirations 16 Chest xray 10/14/21 reported Mild airspace opacity and left lung base, may reflect atelectasis or pneumonia Duplex arterial study of right lower extremity 10/17/21 Absence of color Doppler blood flow within the proximal and mid superficial femoral artery and within the anterior tibial artery concerning for occlusion Recommend to consult vascular surgery. Patient presently on S/C Heparin, Famotidine and Flonase and Antivirals for HIV. Objective Vital Signs - 12hr 10/17/21 10/17/21 10/17/21 08:00 09:00 10:00 Pulse Rate 84 Respiratory 22 Rate Respiratory 20 Rate [ Generalized] O2 Sat by Pulse 98 Oximetry 10/17/21 13:41 Pulse Rate Respiratory 20 Rate Respiratory Rate [ Generalized] O2 Sat by Pulse Oximetry Constitutional: no acute distress, alert Eyes: non-icteric Neck: supple, no lymphadenopathy Ascultation: Bilateral: diminished breath sounds Cardiovascular: regular rate and rhythm Gastrointestinal: normoactive bowel sounds, soft, non-tender Integumentary: normal Extremities: no cyanosis, no edema Neurologic: normal mental status, pupils equal and round, other (Right hemiperesis.) Psychiatric: mood appropriate, affect normal CBC and BMP: 10/17/21 05:07 10/18/21 04:26 Abnormal lab findings: Abnormal Labs 10/14/21 10/14/21 10/14/21 17:59 18:09 18:09 WBC RBC Hgb Hct MCV MCHC Seg Neuts % (Manual) Lymphocytes % (Manual) Seg Neutrophils # Man Lymphocytes # (Manual) VBG pH Sodium 118 L* Potassium 8.8 H* Chloride 77.6 L Carbon Dioxide 11 L BUN 77 H Creatinine 5.0 H Glucose 1555 H* POC Glucose > 600 H Hemoglobin A1c Phosphorus 11.60 H Magnesium 3.60 H Alkaline Phosphatase 143 H C-Reactive Protein 10/14/21 10/14/21 10/14/21 18:28 18:28 19:21 WBC 11.3 H RBC Hgb Hct MCV 107 H MCHC 28 L Seg Neuts % (Manual) 94.0 H Lymphocytes % (Manual) 1.0 L Seg Neutrophils # Man 10.6 H Lymphocytes # (Manual) 0.1 L VBG pH 7.129 L* Sodium Potassium Chloride Carbon Dioxide BUN Creatinine Glucose POC Glucose > 600 H Hemoglobin A1c Phosphorus Magnesium Alkaline Phosphatase C-Reactive Protein 10/14/21 10/14/21 10/14/21 20:44 21:13 22:36 WBC RBC Hgb Hct MCV MCHC Seg Neuts % (Manual) Lymphocytes % (Manual) Seg Neutrophils # Man Lymphocytes # (Manual) VBG pH Sodium Potassium Chloride Carbon Dioxide 17 L BUN 73 H Creatinine 4.6 H Glucose 997 H* 890 H* POC Glucose > 600 H Hemoglobin A1c Phosphorus Magnesium Alkaline Phosphatase C-Reactive Protein 10/15/21 10/15/21 10/15/21 00:22 00:50 00:50 WBC RBC Hgb Hct MCV MCHC Seg Neuts % (Manual) Lymphocytes % (Manual) Seg Neutrophils # Man Lymphocytes # (Manual) VBG pH Sodium Potassium Chloride Carbon Dioxide 19 L BUN 72 H Creatinine 4.1 H Glucose 727 H* POC Glucose > 600 H Hemoglobin A1c Phosphorus 6.60 H D Magnesium 3.40 H Alkaline Phosphatase C-Reactive Protein 10/15/21 10/15/21 10/15/21 02:24 03:01 03:54 WBC RBC Hgb Hct MCV MCHC Seg Neuts % (Manual) Lymphocytes % (Manual) Seg Neutrophils # Man Lymphocytes # (Manual) VBG pH Sodium Potassium Chloride Carbon Dioxide BUN Creatinine Glucose POC Glucose 537 H 529 H 478 H Hemoglobin A1c Phosphorus Magnesium Alkaline Phosphatase C-Reactive Protein 10/15/21 10/15/21 10/15/21 04:23 04:56 05:57 WBC RBC Hgb Hct MCV MCHC Seg Neuts % (Manual) Lymphocytes % (Manual) Seg Neutrophils # Man Lymphocytes # (Manual) VBG pH Sodium Potassium Chloride 111.0 H Carbon Dioxide 19 L BUN 64 H Creatinine 3.4 H Glucose 402 H POC Glucose 423 H 296 H Hemoglobin A1c Phosphorus Magnesium Alkaline Phosphatase C-Reactive Protein 10/15/21 10/15/21 10/15/21 06:54 08:03 09:02 WBC RBC Hgb Hct MCV MCHC Seg Neuts % (Manual) Lymphocytes % (Manual) Seg Neutrophils # Man Lymphocytes # (Manual) VBG pH Sodium Potassium Chloride Carbon Dioxide BUN Creatinine Glucose POC Glucose 266 H 140 H 119 H Hemoglobin A1c Phosphorus Magnesium Alkaline Phosphatase C-Reactive Protein 10/15/21 10/15/21 10/15/21 11:22 12:51 13:43 WBC RBC Hgb Hct MCV MCHC Seg Neuts % (Manual) Lymphocytes % (Manual) Seg Neutrophils # Man Lymphocytes # (Manual) VBG pH Sodium 150 H Potassium Chloride 120.1 H Carbon Dioxide 14 L BUN 52 H Creatinine 2.9 H Glucose 198 H POC Glucose 145 H 215 H Hemoglobin A1c Phosphorus Magnesium 2.50 H Alkaline Phosphatase C-Reactive Protein 10/15/21 10/15/21 10/15/21 14:01 14:58 16:08 WBC RBC Hgb Hct MCV MCHC Seg Neuts % (Manual) Lymphocytes % (Manual) Seg Neutrophils # Man Lymphocytes # (Manual) VBG pH Sodium Potassium Chloride Carbon Dioxide BUN Creatinine Glucose POC Glucose 137 H 173 H 168 H Hemoglobin A1c Phosphorus Magnesium Alkaline Phosphatase C-Reactive Protein 10/15/21 10/15/21 10/15/21 17:49 17:52 22:10 WBC RBC Hgb Hct MCV MCHC Seg Neuts % (Manual) Lymphocytes % (Manual) Seg Neutrophils # Man Lymphocytes # (Manual) VBG pH Sodium 148 H Potassium Chloride 117.4 H Carbon Dioxide 18 L BUN 46 H Creatinine 2.6 H Glucose 141 H POC Glucose 137 H 135 H Hemoglobin A1c Phosphorus Magnesium Alkaline Phosphatase C-Reactive Protein 5.10 H 10/16/21 10/16/21 10/16/21 01:03 01:07 02:21 WBC RBC Hgb Hct MCV MCHC Seg Neuts % (Manual) Lymphocytes % (Manual) Seg Neutrophils # Man Lymphocytes # (Manual) VBG pH Sodium Potassium 3.5 L Chloride 110.4 H Carbon Dioxide 20 L BUN 36 H Creatinine 2.1 H Glucose 257 H POC Glucose 210 H 207 H Hemoglobin A1c Phosphorus 2.20 L D Magnesium Alkaline Phosphatase C-Reactive Protein 10/16/21 10/16/21 10/16/21 03:41 05:04 06:13 WBC RBC Hgb Hct MCV MCHC Seg Neuts % (Manual) Lymphocytes % (Manual) Seg Neutrophils # Man Lymphocytes # (Manual) VBG pH Sodium Potassium Chloride Carbon Dioxide BUN Creatinine Glucose POC Glucose 161 H 137 H 116 H Hemoglobin A1c Phosphorus Magnesium Alkaline Phosphatase C-Reactive Protein 10/16/21 10/16/21 10/16/21 06:41 06:41 09:22 WBC RBC 2.98 L Hgb 9.3 L Hct 28.2 L D MCV 95 H MCHC Seg Neuts % (Manual) Lymphocytes % (Manual) Seg Neutrophils # Man Lymphocytes # (Manual) VBG pH Sodium Potassium 3.5 L Chloride 110.5 H Carbon Dioxide 20 L BUN 29 H Creatinine 1.8 H Glucose 128 H POC Glucose 175 H Hemoglobin A1c Phosphorus Magnesium Alkaline Phosphatase C-Reactive Protein 10/16/21 10/16/21 10/16/21 10:43 11:16 11:29 WBC RBC Hgb Hct MCV MCHC Seg Neuts % (Manual) Lymphocytes % (Manual) Seg Neutrophils # Man Lymphocytes # (Manual) VBG pH Sodium Potassium Chloride Carbon Dioxide BUN Creatinine Glucose POC Glucose 239 H 227 H 225 H Hemoglobin A1c Phosphorus Magnesium Alkaline Phosphatase C-Reactive Protein 10/16/21 10/17/21 10/17/21 16:21 00:30 05:07 WBC RBC 2.91 L Hgb 9.3 L Hct 27.0 L MCV MCHC Seg Neuts % (Manual) Lymphocytes % (Manual) Seg Neutrophils # Man Lymphocytes # (Manual) VBG pH Sodium Potassium Chloride Carbon Dioxide BUN Creatinine Glucose POC Glucose 213 H 226 H Hemoglobin A1c Phosphorus Magnesium Alkaline Phosphatase C-Reactive Protein 10/17/21 10/17/21 10/17/21 05:07 07:54 10:01 WBC RBC Hgb Hct MCV MCHC Seg Neuts % (Manual) Lymphocytes % (Manual) Seg Neutrophils # Man Lymphocytes # (Manual) VBG pH Sodium 135 L Potassium Chloride Carbon Dioxide 19 L BUN 25 H Creatinine 1.7 H Glucose 314 H POC Glucose 272 H Hemoglobin A1c 13.7 H Phosphorus 2.30 L Magnesium Alkaline Phosphatase C-Reactive Protein 10/17/21 10/17/21 12:04 16:37 WBC RBC Hgb Hct MCV MCHC Seg Neuts % (Manual) Lymphocytes % (Manual) Seg Neutrophils # Man Lymphocytes # (Manual) VBG pH Sodium Potassium Chloride Carbon Dioxide BUN Creatinine Glucose POC Glucose 186 H 171 H Hemoglobin A1c Phosphorus Magnesium Alkaline Phosphatase C-Reactive Protein Chest x-ray: report reviewed, image reviewed Prior PFT's, U/S of legs: report reviewed, image reviewed Additional Studies: DUPLEX DOPPLER LOWER EXTREMITY ARTERIAL, RIGHT 10/17/21 INDICATION / CLINICAL INFORMATION: R pinky toe dry gangrene. TECHNIQUE: Arterial duplex examination of the right lower extremity performed using B-mode, color flow and spectral Doppler assessment. COMPARISON: None available. FINDINGS: RIGHT: Common Femoral Artery: PSV 119 cm/sec. Monophasic waveform. Proximal SFA: No evidence of color Doppler blood flow. Mid SFA: No evidence of color Doppler blood flow. Distal SFA: PSV 112 cm/sec. Monophasic waveform. Popliteal artery: PSV 13 cm/sec. Monophasic waveform. Posterior tibial artery: PSV 35 cm/sec. Monophasic waveform. Dorsalis Pedis Artery: PSV 9 cm/sec. Monophasic waveform. ADDITIONAL FINDINGS: No evidence of color Doppler blood flow within the anterior tibial artery. Right MAGUE: Not performed. IMPRESSION: 1. Absence of color Doppler blood flow within the proximal and mid superficial femoral artery and within the anterior tibial artery concerning for occlusion. Abnormal monophasic waveforms in the remainder of the right lower extremity. CTA of the lower extremities/conventional angiography may be useful for further evaluation given the severity of disease. XR chest 1V ap 10/14/21 INDICATION / CLINICAL INFORMATION: sob. COMPARISON: None available. FINDINGS: SUPPORT DEVICES: None. HEART /PULMONARY VASCULATURE: No significant abnormality. LUNGS / PLEURA: There is mild elevation of the left hemidiaphragm. Mildly low lung volumes. There is mild patchy airspace opacity left lung base. Right lung is clear. No sizable pleural effusion. No pneumothorax. IMPRESSION: Mild airspace opacity and left lung base, may reflect atelectasis or pneumonia.
[2021-10-17] MEDS: INSULIN GLARGINE 100 UNITS/ML SUB-Q SCH (21:44)
[2021-10-17] MEDS: SENNOSIDES ORAL LIQD 8.8 MG/5 ML ORAL LIQD PO SCH (21:48)
[2021-10-18] MEDS: ACETAMINOPHEN 325 MG TAB PO PRN ×2 (03:15→11:17)
[2021-10-18] MEDS: HEPARIN 5,000 UNIT/1 ML VIAL SUB-Q SCH ×2 (05:21→14:37)
[2021-10-18] MEDS: HYDROcodone/ACETAMINOPHEN 5-325 MG TAB PO PRN ×2 (05:22→14:37)
[2021-10-18 06:27] LABS: Calcium 8.7 mg/dL (8.4-10.2)
[2021-10-18 08:07] VITALS: BP 139/82
--- NOTE | 2021-10-18 09:54 | Discharge Summary ---
Providers - Providers Date of Admission: 10/15/21 00:03 Attending physician: BOB CALVO MD 10/14/21 20:02 Consult to Physician [CONS] Urgent Comment: Consulting Provider: LIS RAMOS Physician Instructions: Reason For Exam: dka 10/14/21 22:08 Consult to Physician [CONS] Stat Comment: Consulting Provider: LIS RAMOS Physician Instructions: Reason For Exam: critical care 10/15/21 00:03 Consult to Dietitian/Nutrition [CONS] Routine Physician Instructions: Reason For Exam: Reason for Consult: Diet education 10/15/21 07:13 Consult to Physician [CONS] Routine Comment: called office/ mauricio Consulting Provider: MALIKA SCHMID Physician Instructions: Reason For Exam: Acute renal failure 10/17/21 11:06 Consult to Physician [CONS] Routine Comment: Consulting Provider: JESSICA VELEZ Physician Instructions: Reason For Exam: R necrotic 5th toe 10/17/21 14:06 Physical Therapy Evaluation and Treat [CONS] Routine Comment: Reason For Exam: amb dysfunction Primary care physician: PROTOZOOLOGIST Hospitalization Condition: Critical Disposition: 30 STILL A PATIENT Exam - Constitutional Vitals: Temp Pulse Resp BP Pulse Ox 98.0 F 77 18 139/82 97 10/18/21 07:27 10/18/21 07:27 10/18/21 07:27 10/18/21 07:27 10/18/21 07:27 Plan Care Plan Goals: Please follow-up with your primary care doctor. Bring your new medications with you. Your hemoglobin A1c was 13.6%. For diabetes you will start taking to oral medications. Please take them as prescribed every day. Please follow-up in wound care clinic about your toe. The number for you to make an appointment has been provided. Follow up with: JOAQUINA PAEZ MD [Primary Care Provider] - 3-5 Days CONCHIS KAUR MD [Staff Physician] - 14 Days (wound care clinic) Prescriptions: metFORMIN XR [Glucophage XR] 500 mg PO QDAY 30 Days #60 tab oxyCODONE /ACETAMINOPHEN [Percocet 5/325 mg] 1 tab PO Q6HR PRN 3 Days #12 tablet PRN Reason: Pain Semaglutide [Rybelsus] 3 mg PO DAILY 30 Days #30 tab Other Discharge Orders: Glucometer (Amb) Location: None Selected Glucometer supplies[Amb] Location: None Selected
[2021-10-18] MEDS: amLODIPine 10 MG TAB PO SCH (11:17)
[2021-10-18] MEDS: DOCUSATE SODIUM 100 MG CAP PO SCH (11:18)
[2021-10-18] MEDS: DOLUTEGRAVIR 50 MG TAB PO SCH (11:19)
[2021-10-18] MEDS: ABACAVIR 300 MG TAB PO SCH (11:19)
[2021-10-18] MEDS: LOSARTAN 50 MG TAB PO SCH (11:19)
[2021-10-18] MEDS: FAMOTIDINE 10 MG TAB PO SCH (11:20)
[2021-10-18] MEDS: FLUTICASONE PROPIONATE NASAL SPRAY 16 GM NS SCH (11:20)
[2021-10-18] MEDS: INSULIN REGULAR, HUMAN 100 UNITS/1 ML SUB-Q SCH ×3 (11:43→17:58)
--- NOTE | 2021-10-18 14:18 | Progress Note ---
Assessment and Plan Diabetic ketoacidosis Toxic metabolic encephalopathy HIV positive Acute kidney injury H/o CVA Hyperlipidemia Asthma Severe metabolic acidosis Pseudohyponatremia Hyperkalemia - prn supplemental oxygen to keep O2 sats > 90% - prn bronchodilators (GRACIELA) with pulm hygiene per RT - continue to avoid nephrotoxins, renally dose all medications - mobility protocols to prevent pressure ulcers - PT/OT as tolerated - Wound care per RN/WCT - continue accuchecks with glycemic control per SSI for target blood glucose < 180 mg/dL - tobacco abstinence counseled at the bedside - home oxygen evaluation at discharge - GI & VTE prophylaxis - Flu & pneumovax per protocol - prn analgesia per pain score - continue other care per attending / other consultants ... re-evaluate in am & prn Subjective Date of service: 10/18/21 Principal diagnosis: Diabetic ketoacidosis; AMS; TOMAS; HIV positive; H/o CVA; Asthma Interval history: Patient is seen today for: Diabetic ketoacidosis; AMS; TOMAS; HIV positive; H/o CVA; Asthma Seen and examined at bedside; 24hour events reviewed; nursing and respiratory care staff consulted; no adverse overnight events reported to me; resting in bed; Objective Vital Signs - 12hr 10/18/21 10/18/21 10/18/21 04:33 04:45 07:27 Temperature 98.7 F 98.0 F Pulse Rate 83 77 Respiratory 16 18 Rate Blood Pressure 127/74 139/82 O2 Sat by Pulse 97 98 97 Oximetry 10/18/21 08:00 Temperature Pulse Rate Respiratory Rate Blood Pressure O2 Sat by Pulse 100 Oximetry Constitutional: no acute distress Eyes: non-icteric ENT: oropharynx moist Neck: supple, no lymphadenopathy, no JVD Effort: normal Ascultation: Bilateral: diminished breath sounds, rhonchi Percussion: Bilateral: not dull Cardiovascular: regular rate and rhythm Gastrointestinal: normoactive bowel sounds, soft, non-tender, non-distended Integumentary: normal Extremities: no cyanosis, no edema, pulses normal, no ischemia or petechiae Neurologic: non-focal exam (grossly), pupils equal and round, CN II-XII normal, motor strength normal and Psychiatric: mood appropriate, affect normal CBC and BMP: 10/17/21 05:07 10/18/21 04:26 Abnormal lab findings: Abnormal Labs 10/14/21 10/14/21 10/14/21 17:59 18:09 18:09 WBC RBC Hgb Hct MCV MCHC Seg Neuts % (Manual) Lymphocytes % (Manual) Seg Neutrophils # Man Lymphocytes # (Manual) VBG pH Sodium 118 L* Potassium 8.8 H* Chloride 77.6 L Carbon Dioxide 11 L BUN 77 H Creatinine 5.0 H Glucose 1555 H* POC Glucose > 600 H Hemoglobin A1c Phosphorus 11.60 H Magnesium 3.60 H Alkaline Phosphatase 143 H C-Reactive Protein 10/14/21 10/14/21 10/14/21 18:28 18:28 19:21 WBC 11.3 H RBC Hgb Hct MCV 107 H MCHC 28 L Seg Neuts % (Manual) 94.0 H Lymphocytes % (Manual) 1.0 L Seg Neutrophils # Man 10.6 H Lymphocytes # (Manual) 0.1 L VBG pH 7.129 L* Sodium Potassium Chloride Carbon Dioxide BUN Creatinine Glucose POC Glucose > 600 H Hemoglobin A1c Phosphorus Magnesium Alkaline Phosphatase C-Reactive Protein 10/14/21 10/14/21 10/14/21 20:44 21:13 22:36 WBC RBC Hgb Hct MCV MCHC Seg Neuts % (Manual) Lymphocytes % (Manual) Seg Neutrophils # Man Lymphocytes # (Manual) VBG pH Sodium Potassium Chloride Carbon Dioxide 17 L BUN 73 H Creatinine 4.6 H Glucose 997 H* 890 H* POC Glucose > 600 H Hemoglobin A1c Phosphorus Magnesium Alkaline Phosphatase C-Reactive Protein 10/15/21 10/15/21 10/15/21 00:22 00:50 00:50 WBC RBC Hgb Hct MCV MCHC Seg Neuts % (Manual) Lymphocytes % (Manual) Seg Neutrophils # Man Lymphocytes # (Manual) VBG pH Sodium Potassium Chloride Carbon Dioxide 19 L BUN 72 H Creatinine 4.1 H Glucose 727 H* POC Glucose > 600 H Hemoglobin A1c Phosphorus 6.60 H D Magnesium 3.40 H Alkaline Phosphatase C-Reactive Protein 10/15/21 10/15/21 10/15/21 02:24 03:01 03:54 WBC RBC Hgb Hct MCV MCHC Seg Neuts % (Manual) Lymphocytes % (Manual) Seg Neutrophils # Man Lymphocytes # (Manual) VBG pH Sodium Potassium Chloride Carbon Dioxide BUN Creatinine Glucose POC Glucose 537 H 529 H 478 H Hemoglobin A1c Phosphorus Magnesium Alkaline Phosphatase C-Reactive Protein 10/15/21 10/15/21 10/15/21 04:23 04:56 05:57 WBC RBC Hgb Hct MCV MCHC Seg Neuts % (Manual) Lymphocytes % (Manual) Seg Neutrophils # Man Lymphocytes # (Manual) VBG pH Sodium Potassium Chloride 111.0 H Carbon Dioxide 19 L BUN 64 H Creatinine 3.4 H Glucose 402 H POC Glucose 423 H 296 H Hemoglobin A1c Phosphorus Magnesium Alkaline Phosphatase C-Reactive Protein 10/15/21 10/15/21 10/15/21 06:54 08:03 09:02 WBC RBC Hgb Hct MCV MCHC Seg Neuts % (Manual) Lymphocytes % (Manual) Seg Neutrophils # Man Lymphocytes # (Manual) VBG pH Sodium Potassium Chloride Carbon Dioxide BUN Creatinine Glucose POC Glucose 266 H 140 H 119 H Hemoglobin A1c Phosphorus Magnesium Alkaline Phosphatase C-Reactive Protein 10/15/21 10/15/21 10/15/21 11:22 12:51 13:43 WBC RBC Hgb Hct MCV MCHC Seg Neuts % (Manual) Lymphocytes % (Manual) Seg Neutrophils # Man Lymphocytes # (Manual) VBG pH Sodium 150 H Potassium Chloride 120.1 H Carbon Dioxide 14 L BUN 52 H Creatinine 2.9 H Glucose 198 H POC Glucose 145 H 215 H Hemoglobin A1c Phosphorus Magnesium 2.50 H Alkaline Phosphatase C-Reactive Protein 10/15/21 10/15/21 10/15/21 14:01 14:58 16:08 WBC RBC Hgb Hct MCV MCHC Seg Neuts % (Manual) Lymphocytes % (Manual) Seg Neutrophils # Man Lymphocytes # (Manual) VBG pH Sodium Potassium Chloride Carbon Dioxide BUN Creatinine Glucose POC Glucose 137 H 173 H 168 H Hemoglobin A1c Phosphorus Magnesium Alkaline Phosphatase C-Reactive Protein 10/15/21 10/15/21 10/15/21 17:49 17:52 22:10 WBC RBC Hgb Hct MCV MCHC Seg Neuts % (Manual) Lymphocytes % (Manual) Seg Neutrophils # Man Lymphocytes # (Manual) VBG pH Sodium 148 H Potassium Chloride 117.4 H Carbon Dioxide 18 L BUN 46 H Creatinine 2.6 H Glucose 141 H POC Glucose 137 H 135 H Hemoglobin A1c Phosphorus Magnesium Alkaline Phosphatase C-Reactive Protein 5.10 H 10/16/21 10/16/21 10/16/21 01:03 01:07 02:21 WBC RBC Hgb Hct MCV MCHC Seg Neuts % (Manual) Lymphocytes % (Manual) Seg Neutrophils # Man Lymphocytes # (Manual) VBG pH Sodium Potassium 3.5 L Chloride 110.4 H Carbon Dioxide 20 L BUN 36 H Creatinine 2.1 H Glucose 257 H POC Glucose 210 H 207 H Hemoglobin A1c Phosphorus 2.20 L D Magnesium Alkaline Phosphatase C-Reactive Protein 10/16/21 10/16/21 10/16/21 03:41 05:04 06:13 WBC RBC Hgb Hct MCV MCHC Seg Neuts % (Manual) Lymphocytes % (Manual) Seg Neutrophils # Man Lymphocytes # (Manual) VBG pH Sodium Potassium Chloride Carbon Dioxide BUN Creatinine Glucose POC Glucose 161 H 137 H 116 H Hemoglobin A1c Phosphorus Magnesium Alkaline Phosphatase C-Reactive Protein 10/16/21 10/16/21 10/16/21 06:41 06:41 09:22 WBC RBC 2.98 L Hgb 9.3 L Hct 28.2 L D MCV 95 H MCHC Seg Neuts % (Manual) Lymphocytes % (Manual) Seg Neutrophils # Man Lymphocytes # (Manual) VBG pH Sodium Potassium 3.5 L Chloride 110.5 H Carbon Dioxide 20 L BUN 29 H Creatinine 1.8 H Glucose 128 H POC Glucose 175 H Hemoglobin A1c Phosphorus Magnesium Alkaline Phosphatase C-Reactive Protein 10/16/21 10/16/21 10/16/21 10:43 11:16 11:29 WBC RBC Hgb Hct MCV MCHC Seg Neuts % (Manual) Lymphocytes % (Manual) Seg Neutrophils # Man Lymphocytes # (Manual) VBG pH Sodium Potassium Chloride Carbon Dioxide BUN Creatinine Glucose POC Glucose 239 H 227 H 225 H Hemoglobin A1c Phosphorus Magnesium Alkaline Phosphatase C-Reactive Protein 10/16/21 10/17/21 10/17/21 16:21 00:30 05:07 WBC RBC 2.91 L Hgb 9.3 L Hct 27.0 L MCV MCHC Seg Neuts % (Manual) Lymphocytes % (Manual) Seg Neutrophils # Man Lymphocytes # (Manual) VBG pH Sodium Potassium Chloride Carbon Dioxide BUN Creatinine Glucose POC Glucose 213 H 226 H Hemoglobin A1c Phosphorus Magnesium Alkaline Phosphatase C-Reactive Protein 10/17/21 10/17/21 10/17/21 05:07 07:54 10:01 WBC RBC Hgb Hct MCV MCHC Seg Neuts % (Manual) Lymphocytes % (Manual) Seg Neutrophils # Man Lymphocytes # (Manual) VBG pH Sodium 135 L Potassium Chloride Carbon Dioxide 19 L BUN 25 H Creatinine 1.7 H Glucose 314 H POC Glucose 272 H Hemoglobin A1c 13.7 H Phosphorus 2.30 L Magnesium Alkaline Phosphatase C-Reactive Protein 10/17/21 10/17/21 10/17/21 12:04 16:37 19:14 WBC RBC Hgb Hct MCV MCHC Seg Neuts % (Manual) Lymphocytes % (Manual) Seg Neutrophils # Man Lymphocytes # (Manual) VBG pH Sodium Potassium Chloride Carbon Dioxide BUN Creatinine Glucose POC Glucose 186 H 171 H 200 H Hemoglobin A1c Phosphorus Magnesium Alkaline Phosphatase C-Reactive Protein 10/18/21 10/18/21 04:26 11:23 WBC RBC Hgb Hct MCV MCHC Seg Neuts % (Manual) Lymphocytes % (Manual) Seg Neutrophils # Man Lymphocytes # (Manual) VBG pH Sodium Potassium Chloride Carbon Dioxide BUN Creatinine 1.6 H Glucose 247 H POC Glucose 291 H Hemoglobin A1c Phosphorus Magnesium Alkaline Phosphatase C-Reactive Protein Allied health notes reviewed: nursing
--- NOTE | 2021-10-18 14:38 | Progress Note ---
Assessment and Plan 1. Acute kidney injury: Vasomotor TOMAS superimposed on CKD in the setting of DKA / volume depletion. Renal US showed R kidney stone and ?mild R hydro. CT negative for any acute process. IV fluids. Monitor renal function. Creatinine level is better. Avoid nephrotoxic agents. Meds dosage based on GFR. 2. FEN: Hyperkalemia, improved, monitor. Replete lytes as needed. Monitor lytes and volume status. 3. DKA: Improved. Monitor. 4. Covid-19 PUI: Covid-19 test negative. Monitor. 5. History of CVA with residual R hemiparesis: Supportive care. 6. HIV: Continue home meds. 7. H/o Hypertension: Monitor BP. Subjective: Patient was seen and examined at the bedside. Examination: General appearance: well-developed, appears stated age, no distress HEENT: atraumatic, GASPER Neck: trachea midline Respiratory: ctab Heart: S1S2, regular, no murmur Abdomen: obese, soft, bowel sounds heard, NT Integumentary: no obvious rash noted Neurologic: alert, conversing, R hemiparesis, aphasia Ext: no edema noted Subjective Date of service: 10/18/21 Principal diagnosis: Diabetic ketoacidosis; AMS; TOMAS; HIV positive; H/o CVA; A sthma Objective - Vital Signs Vital signs: Vital Signs - 12hr 10/18/21 10/18/21 10/18/21 04:33 04:45 07:27 Temperature 98.7 F 98.0 F Pulse Rate 83 77 Respiratory 16 18 Rate Blood Pressure 127/74 139/82 O2 Sat by Pulse 97 98 97 Oximetry 10/18/21 08:00 Temperature Pulse Rate Respiratory Rate Blood Pressure O2 Sat by Pulse 100 Oximetry - Lab 10/17/21 05:07 10/18/21 04:26 Most recent lab results Calcium 8.7 mg/dL (8.4-10.2) 10/18/21 04:26 Phosphorus 2.30 mg/dL (2.5-4.5) L 10/17/21 05:07 Magnesium 1.80 mg/dL (1.7-2.3) 10/17/21 05:07 Medications & Allergies - Medications Allergies/Adverse Reactions: Allergies Penicillins Allergy (Verified 10/17/21 08:28) Hives Home Medications: Home Medications Medication Instructions Recorded Confirmed Last Taken Type Triumeq 600-50-300 mg Tablet 600 mg PO DAILY 05/10/20 10/16/21 Unknown History amLODIPine 10 mg PO DAILY #30 tablet 05/13/20 10/16/21 Unknown Rx Albuterol Mdi (or & Nicu Only) 2 puff IH QID PRN 10/17/21 10/17/21 Unknown History [ProAir HFA Inhaler] AtorvaSTATin [Lipitor] 20 mg PO QHS 10/17/21 10/17/21 Unknown History Cholecalciferol (Vitamin D3) 50,000 unit PO CONT 10/17/21 10/17/21 Unknown History [Vitamin D3 50,000UNIT CAP] HYDROcodone/APAP 10-325 [Verner 1 tab PO Q6HR PRN 10/17/21 10/17/21 Unknown History 10-325 mg TAB] Losartan [Cozaar] 50 mg PO QDAY 10/17/21 10/17/21 Unknown History Semaglutide [Rybelsus] 3 mg PO DAILY 30 Days #30 tab 10/18/21 Unknown Rx metFORMIN XR [Glucophage XR] 500 mg PO QDAY 30 Days #60 tab 10/18/21 Unknown Rx oxyCODONE /ACETAMINOPHEN [Percocet 1 tab PO Q6HR PRN 3 Days #12 tablet 10/18/21 Unknown Rx 5/325 mg] Active Medications: Generic Name Dose Route Start Last Admin Trade Name Freq PRN Reason Stop Dose Admin Abacavir Sulfate 600 mg 10/16/21 10:00 10/18/21 11:19 Abacavir 300 Mg Tab PO 600 mg DAILY JOSE Administration Acetaminophen 650 mg 10/15/21 00:03 10/18/21 03:15 Acetaminophen 325 Mg Tab PO 650 mg Q6H PRN Administration Pain MILD(1-3)/Fever >100.5/DELANEY Hydrocodone Bitart/Acetaminophen 1 each 10/16/21 14:00 10/18/21 05:22 Hydrocodone/Acetaminophen 5-325 Mg Tab PO 1 each Q6H PRN Administration Pain, Moderate (4-6) Amlodipine Besylate 10 mg 10/17/21 10:00 10/18/21 11:17 Amlodipine 10 Mg Tab PO 10 mg DAILY JOSE Administration Atorvastatin Calcium 20 mg 10/15/21 22:00 10/17/21 21:44 Atorvastatin 20 Mg Tab PO 20 mg QHS JSOE Administration Dextrose 0 ml 10/16/21 08:30 Dextrose 10% *Hypoglycemia IV PRN PRN Hypoglycemia Docusate Sodium 100 mg 10/15/21 14:00 10/18/21 11:18 Docusate Sodium 100 Mg Cap PO 100 mg BID JOSE Administration Dolutegravir Sodium 50 mg 10/16/21 10:00 10/18/21 11:19 Dolutegravir 50 Mg Tab PO 50 mg DAILY JOSE Administration Famotidine 10 mg 10/15/21 22:00 10/18/21 11:20 Famotidine 10 Mg Tab PO 10 mg BID JOSE Administration Fluticasone Propionate 100 mcg 10/15/21 15:00 10/18/21 11:20 Fluticasone Propionate Nasal [place] 16 Gm NS Not Given QDAY JOSE Heparin Sodium (Porcine) 5,000 unit 10/15/21 14:00 10/18/21 05:21 Heparin 5,000 Unit/1 Ml Vial SUB-Q 5,000 unit Q8HR JOSE Administration Insulin Glargine 30 units 10/16/21 22:00 10/17/21 21:44 Insulin Glargine 100 Units/Ml SUB-Q 30 units QHS JOSE Administration Insulin Human Regular 0 units 10/16/21 11:30 10/18/21 11:43 Insulin Regular, Human 100 Units/1 Ml SUB-Q 6 units ACHS JOSE Administration Protocol Lamivudine 300 mg 10/16/21 10:00 10/18/21 11:19 Lamivudine 150 Mg Tab PO 300 mg DAILY JOSE Administration Losartan Potassium 50 mg 10/17/21 10:00 10/18/21 11:19 Losartan 50 Mg Tab PO 50 mg QDAY JOSE Administration Morphine Sulfate 2 mg 10/15/21 00:03 10/17/21 13:41 Morphine 2 Mg/1 Ml Inj IV 2 mg Q4H PRN Administration Pain , Severe (7-10) Senna 8.8 mg 10/15/21 22:00 10/17/21 21:48 Sennosides Oral Liqd 8.8 Mg/5 Ml Oral Liqd PO 8.8 mg QHS JOSE Administration Sodium Chloride 10 ml 10/15/21 10:00 10/18/21 11:18 Sodium Chloride 0.9% 10 Ml Flush Syringe IV 10 ml BID JOSE Administration Sodium Chloride 10 ml 10/15/21 00:03 Sodium Chloride 0.9% 10 Ml Flush Syringe IV PRN PRN LINE FLUSH
--- NOTE | 2021-10-18 15:38 | Event Note ---
Date: 10/18/21 Pt chart reviewed. Arterial u/s reviewed. Pt being discharged today. Will have wound care visit and vascular referral arranged as outpatient. Will have wound clinic call patient on Wednesday to set up appointment.
== END 2021-10-18 20:00 | disposition home health service (06) | DRG 637 ==
LOC: ED 17:37 → CC1 10-15 00:03 → 4A 10-16 17:52
PROVIDERS: ADMIT Internal Medicine Geriatric Medicine; ATTEND Student in an Organized Health Care Education/Training Program
DX: E11.10 Type 2 diabetes mellitus with ketoacidosis without coma (principal); N17.0 Acute kidney failure with tubular necrosis; B20 Human immunodeficiency virus [HIV] disease; G92.8 Other toxic encephalopathy; E87.5 Hyperkalemia; Z20.822 Contact with and (suspected) exposure to COVID-19; E78.5 Hyperlipidemia, unspecified; I69.351 Hemiplegia and hemiparesis following cerebral infarction affecting right dominant side; J45.909 Unspecified asthma, uncomplicated; I12.9 Hypertensive chronic kidney disease with stage 1 through stage 4 chronic kidney disease, or unspecified chronic kidney disease; N18.9 Chronic kidney disease, unspecified; E11.52 Type 2 diabetes mellitus with diabetic peripheral angiopathy with gangrene; I96 Gangrene, not elsewhere classified; N13.30 Unspecified hydronephrosis; E83.39 Other disorders of phosphorus metabolism; Z79.899 Other long term (current) drug therapy
CPT/HCPCS: 36415; 70450; 71045; 74176; 76770; 80048; 80076; 81001; 82805; 82947; 82962; 83036; 83735; 84100; 84145; 85007; 85025; 85027; 86140; 87040; 93005; 93010; 94644; G0378; J3480; J3490; Q0162; Q9967; J0610; J1644; J1815; J1956; J2270; J7030; J7040; J7070; J7120; U0003